=== PATIENT | female | born 1945 | race Caucasian/White ===

== ENCOUNTER 2016-08-04 16:04 | Emergency (ER) | payer OTHER ==
[~2016-08-04 16:04] MED LIST: DILT240C48 PO; VRP40 PO; WARF3TAB6 PO
[2016-08-04 16:39] VITALS: TEMP 36.6
[2016-08-04] MEDS ORDERED: SODIUM CHLORIDE 0.9% 1000ML 1,000 ML IV STA (17:02)
[2016-08-04] MEDS ORDERED: OPTIRAY 320 IV PRN (17:15)
--- NOTE | 2016-08-04 18:54 | DIAGNOSTIC IMAGING REPORT ---
CHEST CTA for PULMONARY ARTERIES CT DOSE: 391.38 mGy.cm HISTORY: Chest pain dyspnea TECHNIQUE: Multiaxial CT images of the chest were performed following the intravenous administration of contrast to evaluate the pulmonary arteries. Maximal intensity projection images were also obtained. COMPARISON STUDY: None. FINDINGS: Study is negative for pulmonary embolus. Mild bibasilar interstitial change. No well-defined parenchymal infiltrative process. Mild pulmonary vascular congestion IMPRESSION: 1. Study is negative for pulmonary embolus. 2. Mild pulmonary vascular congestion. 3. Mild cardia megaly. Electronically signed by: Junior Shah M.D. 08/04/2016 6:52 PM Dictated Date/Time: 08/04/2016 6:48 PM
--- NOTE | 2016-08-04 19:05 | EMERGENCY ROOM VISIT NOTE ---
History Report prepared by Yandy: Fidencio Nunez Under the Supervision of: Dr. Micah Tiwari D.O. First contact with patient: 16:55 Chief Complaint: SHORTNESS OF BREATH Stated Complaint: SOB, COUGH, HAS CANCER, DOING CHEMO Nursing Triage Summary: pt ot the ED with SOB and JACKSON for a few days and cough daughter can translate hx pancreatic ca History of Present Illness The patient is a 71 year old female who presents to the Emergency Room with complaints of persistent shortness of breath beginning two weeks prior to arrival. Due to a language barrier, the history was obtained from the patient's daughter. As per daughter, the patient associates a cough, fatigue, and decreased appetitie with today's symptoms. She notes the shortness of breath worsens with exertion, and the patient has experienced the cough for two weeks, and the fatigue and decreased appetite occurred over the past few days. The daughter states the patient has a pancreatic tumor and has been in chemotherapy for two months. She notes the patient did not have chemotherapy last week, and visited her doctor today. The patient's oncologist maryam blood work and referred the patient to the ED for a CT of her chest. The daughter states the patients blood thinner was recently changed from Warfarin to Eliquis. She notes the patient's last CT was in May at [place]. The daughter denies the patient experiencing a fever. It is noted the blood work drawn earlier today revealed a WBC of 18,000 and a hemoglobin of 11.7. 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 Review of Systems See HPI for pertinent positives & negatives. A total of 10 systems reviewed and were otherwise negative. Past Medical & Surgical Medical Problems: (1) Atrial fibrillation (2) HTN (hypertension) (3) Pancreatic cancer Family History Patient reports no known family medical history. Social History Smoking Status: Never Smoker Alcohol Use: none Housing Status: lives with family Current/Historical Medications Scheduled Apixaban (Eliquis), 5 MG PO BID Digoxin (Digox), 125 MCG PO DAILY Diltiazem Hcl Ext Rel (Tiazac), 120 MG PO DAILY Oxycodone Hcl (Oxycontin), 0 PO Q12 Propafenone Hcl (Propafenone Hcl Er), 425 MG PO Q12 [Rytmonorm], 150 MG PO AMPM [Stugeron], 25 MG PO AMPM Allergies Coded Allergies: No Known Allergies (Unverified , 06/12/16) Physical Exam Vital Signs Date Time Temp Pulse Resp B/P Pulse Ox O2 Delivery O2 Flow Rate FiO2 08/04/16 19:19 101 22 136/78 93 08/04/16 19:07 101 22 136/78 93 Room Air 08/04/16 16:39 36.6 135 28 131/67 94 Room Air Physical Exam CONSTITUTIONAL/VITAL SIGNS: Reviewed / noted above. GENERAL: Non-toxic in appearance. INTEGUMENTARY: Warm, dry, and [place]. HEAD: Normocephalic. EYES: without scleral icterus or trauma. ENT/OROPHARYNX: clear and moist. LYMPHADENOPATHY/NECK: Is supple without lymphadenopathy or meningismus. RESPIRATORY: Lungs clear and equal. CARDIOVASCULAR: Tachycardic rate and irregular rhythm. GI/ABDOMEN: Soft and nontender. No organomegaly or pulsatile mass. No rebound or guarding. Normal bowel sounds. EXTREMITIES: Warm and well perfused. BACK: No CVA tenderness. NEUROLOGICAL: Intact without focal deficits. PSYCHIATRIC: normal affect. MUSCULOSKELETAL: Normally developed with good muscle tone. Medical Decision & Procedures ER Provider Diagnostic Interpretation: CT results as stated below per my review and radiologist interpretation: CHEST CTA for PULMONARY ARTERIES CT DOSE: 391.38 mGy.cm HISTORY: Chest pain dyspnea TECHNIQUE: Multiaxial CT images of the chest were performed following the intravenous administration of contrast to evaluate the pulmonary arteries. Maximal intensity projection images were also obtained. COMPARISON STUDY: None. FINDINGS: Study is negative for pulmonary embolus. Mild bibasilar interstitial change. No well-defined parenchymal infiltrative process. Mild pulmonary vascular congestion IMPRESSION: 1. Study is negative for pulmonary embolus. 2. Mild pulmonary vascular congestion. 3. Mild cardia megaly. Electronically signed by: Junior Shah M.D. 08/04/2016 6:52 PM Laboratory Results Test 08/04/16 17:30 Troponin I < 0.015 ng/ml (0-0.045) Laboratory results as stated above per my review. Medications Administered Medications (Trade) Dose Ordered Sig/Jojo Route Start Time Stop Time Status Last Admin Dose Admin Sodium Chloride (Nss 1000ml) 1,000 ml @ 999 mls/hr Q1H1M STAT IV 08/04/16 17:02 08/04/16 18:02 DC 08/04/16 17:02 999 MLS/HR Heparin Sodium (Porcine) (Heparin 10 Unit/ ml 5 ml Flush) 5 ml STK-MED ONCE .ROUTE 08/04/16 19:04 08/04/16 19:06 DC 08/04/16 19:04 5 ML ECG Indication: SOB/dyspnea Rate (beats per minute): 103 Rhythm: atrial flutter Findings: no ectopy, other (no acute injury) ED Course 164: Previous medical records were reviewed. The patient was evaluated in room A5. A complete history and physical examination was performed. 1701: Ordered Sodium Chloride 1,000 ml @ 999 mls/hr IV. 1905: On reevaluation, the patient is doing well. I discussed the results and findings with the patient. She verbalized agreement of the treatment plan. The patient was discharged home. Medical Decision The differential was considered includes acute myocardial infarction, acute coronary syndrome, myocarditis, pericarditis, pericardial effusions /tamponad, esophageal perforation, pulmonary embolism, pneumonia, pneumothorax, cardiomyopathy, congestive heart, anemia , COPD/asthma exacerbation. This is a 71-year-old female who presents to the ED with a chief complaint of needing a CT scan of the chest. The patient has while place and blood work earlier today by her oncologist. The patient has a history of pancreatic cancer. She has had shortness of breath and cough in the past 10 days. She has a history of A. fib as well. The patient had some blood work as an outpatient that is noted above. White blood cell count was elevated. She was ordered a CT scan of the chest but this was not approved by chart and the patient was told to come here to have this done. The patient's heart rate was 135 and respiratory rate was 28 in triage. She is in no acute distress. She appears to be breathing comfortably. Her exam was otherwise unremarkable. Lungs appear to be also clear. EKG shows atrial flutter at a rate of 103 without acute injury or ectopy. Troponin was negative. CT SCAN of the chest did not show PE or other acute abnormality. The patient was told the results per cheese felt to be stable for discharge. Impression Primary Impression: Cough Additional Impression: Dyspnea Scribe Attestation The scribe's documentation has been prepared under my direction and personally reviewed by me in its entirety. I confirm that the note above accurately reflects all work, treatment, procedures, and medical decision making performed by me. Departure Information Dispostion Home / Self-Care Referrals Jarred Cardona D.O. (PCP) Forms HOME CARE DOCUMENTATION FORM, IMPORTANT VISIT INFORMATION Patient Instructions My [facility] Additional Instructions Your CAT scan did not show evidence of blood clot or pneumonia. Follow-up with your doctors for recheck. Return for significant worsening or new concerns. Problem Qualifiers
[2016-08-04 19:19] VITALS: BP 136/78; PULSE 101; O2SAT 93
[2016-08-18] MEDS ORDERED: [UNRECOGNIZED DRUG - OTHER] PO (07:51)
[2016-08-18] MEDS ORDERED: [UNRECOGNIZED DRUG - OTHER] PO (08:07)
[2016-08-18] MEDS ORDERED: OXYC15TA89 PO (08:09)
[2016-11-12] MEDS ORDERED: PROC1TAB5 PO (10:43)
[2016-11-12] MEDS ORDERED: PRED20TA PO (12:36)
[2016-11-13] MEDS ORDERED: ONDA8TAB6 PO (10:52)
[2016-11-13] MEDS ORDERED: OXYC1TAB3 PO (10:52)
[2016-12-15] MEDS ORDERED: XLD/500 PO (08:11)
[2017-01-05] MEDS ORDERED: PRLSR20 PO (17:10)
== END 2016-08-04 19:20 | disposition home or self-care (01) ==
LOC: C.EDB 16:05 → C.EDC 19:20
DX: R05 Cough (principal); R06.00 Dyspnea, unspecified; D72.829 Elevated white blood cell count, unspecified; C25.9 Malignant neoplasm of pancreas, unspecified; I48.91 Unspecified atrial fibrillation; I11.9 Hypertensive heart disease without heart failure; Z79.899 Other long term (current) drug therapy; Z79.01 Long term (current) use of anticoagulants; Z79.891 Long term (current) use of opiate analgesic

== ENCOUNTER 2016-08-18 16:49 | Emergency (ER) | payer OTHER ==
[~2016-08-18 16:49] MED LIST changes: -DILT240C48 PO; +OXYC15TA89 PO; -VRP40 PO; -WARF3TAB6 PO; +[UNRECOGNIZED DRUG - OTHER] PO; +[UNRECOGNIZED DRUG - OTHER] PO
[2016-08-18 16:55] VITALS: TEMP 37.1
[2016-08-18] MEDS ORDERED: APIX1TAB3 PO (18:38)
[2016-08-18] MEDS ORDERED: PROP1CAP PO (18:38)
[2016-08-18] MEDS ORDERED: DIGO0.1219 PO (18:38)
[2016-08-18] MEDS ORDERED: DILT120C68 PO (18:38)
--- NOTE | 2016-08-18 19:17 | DIAGNOSTIC IMAGING REPORT ---
HEAD CT NONCONTRAST CT DOSE: HISTORY: Fall. Head injury. TECHNIQUE: Multiaxial CT images of the head were performed without the use of intravenous contrast. Automated exposure control was utilized for this study. Comparison: None. Findings: The paranasal sinuses and mastoid air cells are clear. The calvarium and skull base are intact. The ventricles and sulci are within normal limits. There is no mass, hematoma, midline shift, or acute infarct. Impression: No acute intracranial abnormality. Electronically signed by: Yony Ortega M.D. 08/18/2016 7:16 PM Dictated Date/Time: 08/18/2016 7:13 PM
--- NOTE | 2016-08-18 19:23 | DIAGNOSTIC IMAGING REPORT ---
CERVICAL SPINE CT CT DOSE: 928.90 mGy.cm HISTORY: fall hit head TECHNIQUE: Multiaxial CT images of the cervical spine were performed and reformatted in the sagittal and coronal plane without the use of contrast. COMPARISON: None. FINDINGS: No fractures. No subluxation. Prevertebral soft tissues and the C1-C2 interval are intact. No pneumothorax. Left-sided pacemaker. Right sided Port-A-Cath. IMPRESSION: No fractures within the cervical spine. Electronically signed by: Yony Ortega M.D. 08/18/2016 7:21 PM Dictated Date/Time: 08/18/2016 7:18 PM
--- NOTE | 2016-08-18 19:26 | DIAGNOSTIC IMAGING REPORT ---
MAXILLOFACIAL CT CT DOSE: HISTORY: facial pain s/p fall TECHNIQUE: Multiaxial CT images of the maxillofacial region were performed and reformatted in the coronal plane without the use of contrast. COMPARISON: None. FINDINGS: The visualized cervical spine, skull base, pterygoid plates, lamina papyracea, orbital floors, mandible, and zygomatic arches are intact. The orbits are unremarkable. Nasal soft tissue swelling. Slightly depressed nasal bone fractures which are age indeterminate. IMPRESSION: Nasal soft tissue swelling. There are slightly depressed nasal bone fractures which are age indeterminate. Electronically signed by: Yony Ortega M.D. 08/18/2016 7:25 PM Dictated Date/Time: 08/18/2016 7:21 PM
[2016-08-18] MEDS ORDERED: DIPHTHERIA/TETANUS/PERTUSSIS 0.5 ML SYR/VIAL IM. ONE (19:30)
--- NOTE | 2016-08-18 20:03 | EMERGENCY ROOM VISIT NOTE ---
History Report prepared by Yandy: Matias Tan Under the Supervision of: Dr. Giovani Leslie D.O. First contact with patient: 18:33 Chief Complaint: FALL Stated Complaint: FELL ON FACE History of Present Illness The patient is a 71 year old female who presents to the Emergency Room following a falling episode that occurred shortly prior to arrival. This HPI was obtained per the patient's daughter as the patient herself does not speak [place]. Per the patient's daughter, the patient was walking towards the front door of her house when she fell forward. She impacted her face on the floor during the fall. She has some pain in her nose, but denies any neck pain, or headaches. The patient remembers the episode completely and did not lose consciousness at any point. The patient is currently on a three month chemotherapy treatment for pancreatic cancer. She recently switched from Coumadin to ELIQUIS as a blood thinner. She denies change in vision, fevers, chest pain, shortness of breath, nausea, vomiting, diarrhea, pain with urination , and melena. 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 A total of 10 systems reviewed and were otherwise negative. Past Medical & Surgical Medical Problems: (1) Atrial fibrillation (2) HTN (hypertension) (3) Pancreatic cancer Family History Patient reports no known family medical history. Social History Smoking Status: Never Smoker Alcohol Use: none Housing Status: lives with family Current/Historical Medications Scheduled Apixaban (Eliquis), 5 MG PO BID Digoxin (Digox), 125 MCG PO DAILY Diltiazem Hcl Ext Rel (Tiazac), 120 MG PO DAILY Oxycodone Hcl (Oxycontin), 0 PO Q12 Propafenone Hcl (Propafenone Hcl Er), 425 MG PO Q12 [Rytmonorm], 150 MG PO AMPM [Stugeron], 25 MG PO AMPM Allergies Coded Allergies: No Known Allergies (Unverified , 06/12/16) Physical Exam Vital Signs Date Time Temp Pulse Resp B/P Pulse Ox O2 Delivery O2 Flow Rate FiO2 08/18/16 20:07 99 18 133/77 94 Room Air 08/18/16 18:52 84 18 140/84 95 08/18/16 16:55 37.1 111 20 141/79 97 Room Air Physical Exam GENERAL: Sitting up in bed, well appearing, well nourished, no distress, non- toxic. Patient does not speak [place]. Interpretation through daughter. HEAD: There is an abrasion to the bridge of the nose, no active bleeding. There is dried blood in the bilateral naris. Abrasion over the left upper lip, left lower lip. EYE EXAM: normal conjunctiva, PERRL and EOM's grossly intact OROPHARYNX: no exudate, no erythema, lips, buccal mucosa, and tongue normal and mucous membranes are moist EARS: TMs clear b/l NECK: supple, no nuchal rigidity, no adenopathy, non-tender CHEST: stable to compression anteriorly and posteriorly LUNGS: clear to auscultation. Normal chest wall mechanics HEART: no murmurs, S1 normal and S2 normal ABDOMEN: abdomen soft, non-tender, normo-active bowel sounds, no masses, no rebound or guarding. PELVIS: stable to compression anteriorly and posteriorly BACK: Back is symmetrical on inspection and there is no deformity, no midline tenderness, no CVA tenderness. UPPER EXTREMITIES: full active and passive range of motion of all joints without tenderness to palpation LOWER EXTREMITIES: full active and passive range of motion of all joints without tenderness to palpation NEURO EXAM: Normal sensorium, cranial nerves II-XII grossly intact, normal speech, no gross weakness of arms, no gross weakness of legs. GCS: 15. Medical Decision & Procedures ER Provider Diagnostic Interpretation: Xray results per the radiologist and my interpretation. Other results have been interpreted by the radiologist and reviewed by me. CERVICAL SPINE CT CT DOSE: 928.90 mGy.cm HISTORY: fall hit head TECHNIQUE: Multiaxial CT images of the cervical spine were performed and reformatted in the sagittal and coronal plane without the use of contrast. COMPARISON: None. FINDINGS: No fractures. No subluxation. Prevertebral soft tissues and the C1-C2 interval are intact. No pneumothorax. Left-sided pacemaker. Right sided Port-A-Cath. IMPRESSION: No fractures within the cervical spine. Electronically signed by: Yony Ortega M.D. 08/18/2016 7:21 PM Dictated Date/Time: 08/18/2016 7:[address] CT DOSE: HISTORY: Fall. Head injury. TECHNIQUE: Multiaxial CT images of the head were performed without the use of intravenous contrast. Automated exposure control was utilized for this study. Comparison: None. Findings: The paranasal sinuses and mastoid air cells are clear. The calvarium and skull base are intact. The ventricles and sulci are within normal limits. There is no mass, hematoma, midline shift, or acute infarct. Impression: No acute intracranial abnormality. Electronically signed by: Yony Ortega M.D. 08/18/2016 7:16 PM Dictated Date/Time: 08/18/2016 7:[address] DOSE: HISTORY: facial pain s/p fall TECHNIQUE: Multiaxial CT images of the maxillofacial region were performed and reformatted in the coronal plane without the use of contrast. COMPARISON: None. FINDINGS: The visualized cervical spine, skull base, pterygoid plates, lamina papyracea, orbital floors, mandible, and zygomatic arches are intact. The orbits are unremarkable. Nasal soft tissue swelling. Slightly depressed nasal bone fractures which are age indeterminate. IMPRESSION: Nasal soft tissue swelling. There are slightly depressed nasal bone fractures which are age indeterminate. Electronically signed by: Yony Ortega M.D. 08/18/2016 7:25 PM Dictated Date/Time: 08/18/2016 7:21 PM Medications Administered Medications (Trade) Dose Ordered Sig/Jojo Route Start Time Stop Time Status Last Admin Dose Admin Diphtheria/ Pertussis/Tetanus Vacc (Adacel Inj) 0.5 ml ONCE ONCE IM. 08/18/16 19:30 08/18/16 19:31 DC 08/18/16 19:28 0.5 ML ED Course ED COURSE: Vital signs were reviewed and showed Normal vitals. The patients medical record was reviewed The above diagnostic studies were performed and reviewed. ED treatments and interventions as stated above. 1837: The patient was evaluated in room C7. A complete history and physical examination was performed. 1930: Ordered Adacel 0.5 mL IM. 2004: Upon reevaluation, the patient is resting comfortably.I discussed my findings with the patient and her daughter and the understand and agree with the treatment plan. Based on the patients age, coexisting illnesses, exam and lab findings the decision to treat as an outpatient was made. The patient remained stable while under my care. The patient appeared well at the time of discharge. Medical Decision Differential diagnoses include major intracranial, cervical, spinal, thoracic, abdominal, pelvic and neurologic injury. Fracture, contusion, sprain, strain, laceration, abrasions included as well. Patient is a 71-year-old female who presents the ER following receiving chemotherapy and walking out. She tripped and fell. She hit her face. She has no other complaints. She has abrasions on her face. CT of her head, neck and face were negative. Tetanus was updated. Patient no other complaints. She declined any pain medications. On reevaluation she is resting comfortably and she is discharged follow-up with her primary care doctor. Discussed with Pt concerning signs and symptoms to watch out for. Pt was instructed to follow up with their PCP and discussed with the patient their option to return to the ED at anytime for persistent or worsening symptoms. The appropriate anticipatory guidance and out-patient management, including indications for return to the emergency department, were explained at length to the patient and understood. Impression Primary Impression: Contusion of multiple sites Additional Impression: Fall Scribe Attestation The scribe's documentation has been prepared under my direction and personally reviewed by me in its entirety. I confirm that the note above accurately reflects all work, treatment, procedures, and medical decision making performed by me. Departure Information Dispostion Home / Self-Care Referrals No Doctor, Assigned (PCP) Forms HOME CARE DOCUMENTATION FORM, IMPORTANT VISIT INFORMATION Patient Instructions My [facility] Additional Instructions Please follow up with your primary care doctor with in the next 24 hours. Any worsening of your symptoms, please return to the ED immediately. This includes any confusion, headache, new pain, difficulty walking, or any other concerning signs or symptoms from your standpoint. PLease take Tylenol as needed for pain. Problem Qualifiers Additional Impression: Fall Encounter type: initial encounter Qualified Codes: W19.XXXA - Unspecified fall, initial encounter
[2016-08-18 20:07] VITALS: BP 133/77; PULSE 99; O2SAT 94
[2016-11-12] MEDS ORDERED: PROC1TAB5 PO (10:43)
[2016-11-12] MEDS ORDERED: PRED20TA PO (12:36)
[2016-11-13] MEDS ORDERED: OXYC1TAB3 PO (10:52)
[2016-11-13] MEDS ORDERED: ONDA8TAB6 PO (10:52)
[2016-12-15] MEDS ORDERED: XLD/500 PO (08:11)
[2017-01-05] MEDS ORDERED: PRLSR20 PO (17:10)
== END 2016-08-18 20:15 | disposition home or self-care (01) ==
LOC: C.EDB 16:51 → C.EDC 20:15
DX: S00.31XA Abrasion of nose, initial encounter (principal); S00.511A Abrasion of lip, initial encounter; W18.09XA Striking against other object with subsequent fall, initial encounter; C25.9 Malignant neoplasm of pancreas, unspecified; Z79.01 Long term (current) use of anticoagulants; I48.91 Unspecified atrial fibrillation; I10 Essential (primary) hypertension; Z79.899 Other long term (current) drug therapy; Z23 Encounter for immunization

== ENCOUNTER → 2016-09-03 | Outpatient (CLI) | payer OTHER ==
[~2016-09-03] MED LIST changes: +APIX1TAB3 PO; +DIGO0.1219 PO; +DILT120C68 PO; +ONDA8TAB6 PO; +OPTIRAY 320 IV PRN; +OXYC1TAB3 PO; +PRED20TA PO; +PRLSR20 PO; +PROC1TAB5 PO; +PROP1CAP PO; +XLD/500 PO
--- NOTE | 2016-09-03 15:42 | DIAGNOSTIC IMAGING REPORT ---
CT SCAN OF THE CHEST WITH IV CONTRAST CLINICAL HISTORY: Pancreatic cancer. COMPARISON STUDY: Chest CT dated 08/04/16. TECHNIQUE: Following the IV administration of 92 cc of Optiray 320, CT scan of the thorax was performed from the thoracic inlet to the upper abdomen. Images are reviewed in the axial, sagittal, and coronal planes. IV contrast was administered without complication. FINDINGS: Thyroid: Imaged portions of the thyroid gland are normal in size and attenuation. Thoracic aorta: There is mild atherosclerotic calcification of the thoracic aorta, which is normal in caliber and demonstrates standard 3-vessel arch anatomy. No dissection is seen. A right subclavian central venous infusion port is in place. Pulmonary vasculature: The main pulmonary arteries are mildly dilated suggesting pulmonary artery hypertension. There are no filling defects identified in the central pulmonary vessels to indicate pulmonary embolus. Note that this examination was not protocoled for evaluation of the pulmonary arteries. Heart: A cardiac pacemaker is present in the left chest wall. Leads terminate in the right atrial appendage and the right ventricle. The heart is enlarged and without pericardial effusion. The coronary arteries are densely calcified. Lungs and pleural spaces: There is no airspace consolidation or pleural effusion. Bibasilar atelectasis is observed. The trachea and central airways are clear. Mediastinum: There is no mediastinal lymphadenopathy. [place]: Clear. Axillae: There is no axillary lymphadenopathy. Upper abdomen: Hepatic steatosis is observed. A common bile duct stent is in place. Minimal pneumobilia is identified. There is a tiny hiatal hernia. A 1.8 cm cyst is seen in the upper pole of the left kidney. Skeletal structures: The skeletal structures are osteopenic. Mild degenerative change is noted throughout the thoracic spine. No lytic or blastic bony lesions are seen. IMPRESSION: 1. There is no evidence of intrathoracic metastatic disease. 2. No airspace consolidation or pleural effusion is identified. 3. Cardiomegaly and cardiac pacemaker. 4. Hepatic steatosis. 5. Additional findings as above. Electronically signed by: Lg Hankins M.D. 09/03/2016 3:41 PM Dictated Date/Time: 09/03/2016 3:32 PM
--- NOTE | 2016-09-03 15:45 | DIAGNOSTIC IMAGING REPORT ---
ABDOMEN AND PELVIS CT EXAMINATION PRE AND POST INTRAVENOUS CONTRAST CT DOSE: 1651.51 mGy.cm HISTORY: Pancreatic carcinoma PANCREATIC CANCER IV CONTRAST ONLY TECHNIQUE: Multiaxial CT images of the abdomen and pelvis were performed pre and post intravenous contrast enhancement. COMPARISON STUDY: 04/21/2016 FINDINGS: Study is performed to multi phase fashion. Lung bases remain clear. Liver is slightly heterogeneous and mildly enlarged. It well-defined findings of a space-occupying lesion, however is not seen. A biliary ductal stent is in position. There is soft tissue fullness in the region of the pancreatic head region primarily anterior to the stent. It has maximum anterior to posterior dimension of 2.7 cm and a maximum transverse dimension of 2.8 cm. This is considerably diminished compared to the prior measurements of 4.1 x 3.8 cm. There is no significant surrounding adenopathy. There is no dilatation of the pancreatic duct. Kidneys enhance uniformly. There is no significant perinephric adenopathy. Bowel pattern within the abdomen and pelvis is nonobstructive. Examination of the pelvis shows a fibroid-type uterus. Bladder is midline. There is no significant pelvic or inguinal adenopathy. The osseous structures show moderate generalized degenerative change. No lytic or blastic process is seen. IMPRESSION: 1. Considerable decrease in size of a pancreatic head mass. 2. Maximum dimension currently is 2.8 cm diminished on the prior dimension of 4.1 cm. 3. Common bile duct stent in general good position. 4. Fibroid-type uterus. 5. Otherwise negative study Electronically signed by: Junior Shah M.D. 09/03/2016 3:44 PM Dictated Date/Time: 09/03/2016 3:39 PM
== END | disposition home or self-care (01) ==
LOC: C.CTS 14:35
PROVIDERS: ATTEND Surgery
DX: C25.9 Malignant neoplasm of pancreas, unspecified (principal); I51.7 Cardiomegaly; Z95.0 Presence of cardiac pacemaker; K76.0 Fatty (change of) liver, not elsewhere classified

== ENCOUNTER → 2016-11-27 | Day surgery (SDC) | payer OTHER ==
[2016-11-25 10:38] VITALS: BMI 36.0
[~2016-11-27] VITALS: Ht 154.9 cm; Wt 86.4 kg
[~2016-11-27] MED LIST changes: +ATROPINE SULFATE 0.1 MG/ML 5ML SYR IV PRN; +CIPROFLOXACIN / D5W 400 MG IV SCH; +DEXAMETHASONE SOD INJ 4 MG/ML VIAL ONE; +DILT120C43 PO; +ESMOLOL HCL 10 MG/ML 10 ML VIAL ONE; +EpHEDrine SULFATE INJ 50 MG/ML AMP IV PRN; +FENTANYL CITRATE INJ 50 MCG/1 ML 2 ML VIAL ONE; +LACTATED RINGER'S 1000ML 1,000 ML IV SCH; +LARYING-O-JET KIT (LTA) ONE; +LIDOCAINE HCL 2% 2 ML VIAL (20MG/ML) ONE; +LNX125 PO; +LVMI SQ; +METO50TA16 PO; +METO5TAB2 PO; +MIDAZOLAM HCL 1 MG/ML 2ML VIAL ONE; +MRN5 PO; +NURSING VERBAL MED ORDER STA; +ONDANSETRON INJ 2 MG/ML 2 ML VIAL ONE; -OPTIRAY 320 IV PRN; -OXYC15TA89 PO; +PANT40TA PO; +PROPOFOL IV EMULSION 10 MG/ML 20 ML VIAL IV ONE; +SULF800T23 PO; -[UNRECOGNIZED DRUG - OTHER] PO; -[UNRECOGNIZED DRUG - OTHER] PO
[2016-11-27 06:42] VITALS: BP 136/86; PULSE 111; TEMP 36.6; O2SAT 96; Ht 154.9 cm; Wt 86.4 kg
[2016-11-27 07:13] LABS: HEMATOCRIT 38.5 % (37-47); MEAN CELL VOLUME 94.4 fL (80-100); MEAN CORPUSCULAR HEMOGLOBIN 31.1 pg (25-34); MEAN PLATELET VOLUME 9.6 fL (7.4-10.4); PLATELET COUNT 411 K/uL (130-400); RED BLOOD COUNT 4.08 M/uL (4.2-5.4); WHITE BLOOD COUNT 13.95 K/uL (4.8-10.8)
--- NOTE | 2016-11-27 07:54 | Endo History and Physical ---
History & Physical Date of Service: Nov 27, 2016. Chief Complaint: ERCP for stent change Referring Physician: iTno Pickering/[place] History of Present Illness panc CA with ERCP stent placed in [place] in Mar 2016 Past Medical History Pacemaker Past Surgical History Hx Cardiac Surgery: Yes (PACEMAKER 12/2103) Hx Pacemaker: Yes Hx Abdominal Surgery: No ( ) Hx Post-Op Nausea and Vomiting: No Hx Cancer Surgery: No Hx Thoracic Surgery: No Hx Orthopedic: No Hx Urinary Tract Surgery: No Social History Smoking Status: Never Smoker Hx Substance Use: No Hx Alcohol Use: No Allergies Coded Allergies: No Known Allergies (Unverified , 11/27/16) Current Medications Reported Home Medications Medications Dose Route/Sig Max Daily Dose Days Date Category Dose Instructions Roxicodone Ir (Oxycodone HCl) 5 Mg Tab 5 Mg PO Q4H PRN 11/13/16 Reported Zofran (Ondansetron HCl) 8 Mg Tab 8 Mg PO Q8 PRN 11/13/16 Reported Compazine (Prochlorperazine Maleate) 10 Mg Tab 1 Tab PO Q6 PRN 7 11/12/16 Reported Tiazac (Diltiazem HCl) 120 Mg Capcr 120 Mg PO QAM 08/04/16 Reported Propafenone Hcl Er (Propafenone Hcl) 425 Mg Cap 425 Mg PO Q12 08/04/16 Reported Eliquis (Apixaban) 5 Mg Tab 5 Mg PO BID 08/04/16 Reported FAMILY WAITING FOR INSTRUCTIONS FROM SURGEON Digox (Digoxin) 125 Mcg Tab 125 Mcg PO QAM 08/04/16 Reported Vital Signs Weight (Kilograms): 86.36 Height (Feet): 5 Height (Inches): 1 Date Time Temp Pulse Resp B/P (MAP) Pulse Ox O2 Delivery O2 Flow Rate FiO2 11/27/16 06:42 36.6 111 20 136/86 (103) 96 Room Air Physical Exam AAOx3 Nls1s2 \Lungs CTA Abd soft NT/ND - CCE 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
--- NOTE | 2016-11-27 09:08 | DIAGNOSTIC IMAGING REPORT ---
ERCP BILIARY DUCTAL CLINICAL HISTORY: Stent placement COMPARISON STUDY: CT scan dated 09/03/2016 FLUOROSCOPY TIME: 219 seconds. 5 intraprocedural fluoroscopic spot images were acquired.. FINDINGS: Image 1 demonstrates a biliary enteric stent. The common bile duct was cannulated. There is dilatation of the common bile duct and left ductal system. A balloon catheter was placed within the duct. The final image demonstrates expandable metallic biliary enteric stent. IMPRESSION: Images during an ERCP and placement of a metallic biliary enteric stent. Electronically signed by: Carlos A Ewing M.D. 11/27/2016 9:07 AM Dictated Date/Time: 11/27/2016 9:06 AM
--- NOTE | 2016-11-27 09:25 | GI REPORT ---
Procedure Date: 11/27/2016 8:03 AM Procedure: ERCP Indications: Malignant tumor of the head of pancreas, Stent change Medicines: General Anesthesia Complications: No immediate complications. Estimated blood loss: None Estimated Blood Loss: Estimated blood loss: none. Procedure: Pre-Anesthesia Assessment: - Prior to the procedure, a History and Physical was performed, and patient medications and allergies were reviewed. The patient's tolerance of previous anesthesia was also reviewed. The risks and benefits of the procedure and the sedation options and risks were discussed with the patient. All questions were answered, and informed consent was obtained. Prior Anticoagulants: The patient has taken no previous anticoagulant or antiplatelet agents. ASA Grade Assessment: IV - A patient with severe systemic disease that is a constant threat to life. After reviewing the risks and benefits, the patient was deemed in satisfactory condition to undergo the procedure. After obtaining informed consent, the scope was passed under direct vision. Throughout the procedure, the patient's blood pressure, pulse, and oxygen saturations were monitored continuously. The scope was introduced through the mouth, and advanced to the duodenum and used to cannulate the bile duct. The ERCP was accomplished without difficulty. The patient tolerated the procedure well. Findings: A biliary stent was visible on the statistical consultant film. The esophagus was successfully intubated under direct vision. The scope was advanced to a normal major papilla in the descending duodenum without detailed examination of the pharynx, larynx and associated structures, and upper GI tract. The upper GI tract was grossly normal. One stent was removed from the biliary tree using a snare. A straight 0.035 inch Tracer [employer] Direct wire was passed into the biliary tree. The biliary sphincterotomy was extended to a total of 3 mm in length with a short-tip traction sphincterotome using ERBE electrocautery. There was no post-sphincterotomy bleeding. To discover objects, the biliary tree was swept with an 8.5 mm balloon and 12 mm balloon starting at the bifurcation. Sludge was swept from the duct. Superficial cannulation of and contrast injection into the bile duct was accomplished with the 8.5 mm balloon. I personally interpreted the bile duct images. Ductal flow of contrast was adequate. Image quality was adequate. Contrast extended to the entire biliary tree. The common bile duct, hepatic duct bifurcation and left main hepatic duct were severely dilated and diffusely dilated. The largest diameter was 15 mm. One 10 mm by 6 cm covered metal biliary stent with no external flaps and no internal flaps was placed 6 cm into the common bile duct. Bile and sludge flowed through the stent. The stent was in good position. There was prompt drainage of contrast from the biliary system after deployment of metal stent. The PD was neither instrumented nor opacified. No samples taken. The removed stent was inspected as is intact. Impression: - One stent was removed from the biliary tree. - A sphincterotomy was performed. - The biliary tree was swept and sludge was found. - The left main hepatic duct and common bile duct were severely dilated. - One covered metal biliary stent was placed into the common bile duct. Recommendation: - Discharge patient to home (ambulatory). - Advance diet as tolerated. - Cipro (ciprofloxacin) 500 mg PO BID for 5 days. - Return to this GI lab for stent exchange at ERCP in 4 months. - Check liver enzymes (AST, ALT, alkaline phosphatase, bilirubin) in 2 weeks. MD Robe Topete MD 11/27/2016 9:24:59 AM This report has been signed electronically. Note Initiated On: 11/27/2016 8:03 AM I attest to the content of the Intraoperative Record and orders documented therein, exceptions below
--- NOTE | 2016-11-27 09:39 | Discharge Instructions ---
Endoscopy Patient Instructions Date / Procedure(s) Performed Nov 27, 2016. ERCP Allergy Information Coded Allergies: No Known Allergies (Unverified , 11/27/16) Discharge Date / Findings Nov 27, 2016. distal CBD stricture; stent removal, sludge extraction and sphincterotomy 10x60 fully covered stent with prompt drainage Medication Instructions Restart Stopped Medication(s): Meds Administered (Past 24Hrs) Medications (Trade) Dose Ordered Sig/Jojo Route Start Time Stop Time Status Last Admin Dose Admin Lactated Ringer's 1,000 ml @ 15 mls/hr Q24H IV 11/27/16 06:00 11/28/16 05:59 11/27/16 06:45 15 MLS/HR Reported Home Medications Medications Dose Route/Sig Max Daily Dose Days Date Category Dose Instructions Roxicodone Ir (Oxycodone HCl) 5 Mg Tab 5 Mg PO Q4H PRN 11/13/16 Reported Zofran (Ondansetron HCl) 8 Mg Tab 8 Mg PO Q8 PRN 11/13/16 Reported Compazine (Prochlorperazine Maleate) 10 Mg Tab 1 Tab PO Q6 PRN 7 11/12/16 Reported Tiazac (Diltiazem HCl) 120 Mg Capcr 120 Mg PO QAM 08/04/16 Reported Propafenone Hcl Er (Propafenone Hcl) 425 Mg Cap 425 Mg PO Q12 08/04/16 Reported Eliquis (Apixaban) 5 Mg Tab 5 Mg PO BID 08/04/16 Reported FAMILY WAITING FOR INSTRUCTIONS FROM SURGEON Digox (Digoxin) 125 Mcg Tab 125 Mcg PO QAM 08/04/16 Reported 10 resume Eloquis on Wednesday Cipro 500mg BID x [address] Boyle will need stent exchange in 4 months Provider Instructions Activity Restrictions - No exercising or heavy lifting for 24 hours. - Do not drink alcohol the day of the procedure. - Do not drive a car or operate machinery until the day after the procedure. - Do not make any important decisions or sign important papers in 24 hours after the procedure. Following Day: - Return to full activity which may include returning to work/school. Diet Start your diet with liquids and light foods (jello, soup, juice, toast). Then eat your usual diet if not nauseated. Treatment For Common After Affects For mild abdominal pain, bloating, or excessive gas: - Rest - Eat lightly - Lie on right side Follow-Up Information Follow-up with as scheduled Anesthesia Information What You Should Know You have had a procedure that required some medicine to reduce anxiety and discomfort. This treatment is called moderate sedation. After receiving the treatment, you may be sleepy, but you will be able to breathe on your own. The effects of the treatment may last for several hours. Follow these instructions along with Activity/Diet recommendations noted above: * Do NOT do anything where dizziness or clumsiness would be dangerous. * Rest quietly at home today, then you can be up and about tomorrow. * Have a responsible person stay with you the rest of today. * You may have had an I.V. today. If so, you may take the dressing off later today. Recommendations Call your doctor if: * Trouble breathing * Continuous vomiting for more than 24 hours * Temperature above 101 degrees * Severe abdominal pain or bloating * Pain not relieved by pain medicine ordered * There is increased drainage or redness from any incision * A large amount of rectal bleeding greater than 2-3 tablespoons. (If you had a polyp/s removed or have hemorrhoids, a small amount of blood - from the rectum is to be expected.) * You have any unanswered questions or concerns. IN THE EVENT OF A SERIOUS EMERGENCY, GO TO THE NEAREST EMERGENCY ROOM Your discharge instructions were prepared by provider Robe Sears. Patient Instructions Signature Page Elisa Hemphill Patient (or Guardian) Signature/Date: I have read and understand the instructions given to me by my caregivers. Caregiver/RN/Doctor Signature/Date: The above-named patient and/or guardian has received patient instructions on this date. + Original Patient Signature Page (only) stays with chart. Please make copy for patient.
--- NOTE | 2016-11-27 09:52 | Anesthesiology Progress Note ---
Anesthesia Post Op Note Date & Time Nov 27, 2016 at 09:51 Vital Signs Pain Intensity: 0 Vital Signs Past 12 Hours Date Time Temp Pulse Resp B/P (MAP) Pulse Ox O2 Delivery O2 Flow Rate FiO2 11/27/16 09:40 37.1 86 19 128/63 94 Room Air 11/27/16 09:30 82 18 123/88 100 Mask 8 11/27/16 09:20 90 23 136/88 100 Mask 8 11/27/16 09:11 36.4 97 16 130/77 100 Mask 10 11/27/16 06:42 36.6 111 20 136/86 (103) 96 Room Air Notes Mental Status: alert / awake / arousable, participated in evaluation Pt Amnestic to Procedure: Yes Nausea / Vomiting: adequately controlled Pain: adequately controlled Airway Patency, RR, SpO2: stable & adequate BP & HR: stable & adequate Hydration State: stable & adequate Anesthetic Complications: no major complications apparent
[2016-11-27 09:58] VITALS: BP 142/72; PULSE 91; TEMP 36.8; O2SAT 93
[2016-11-27 10:30] VITALS: BP 139/63; PULSE 100; O2SAT 93
[2016-11-27 11:00] VITALS: BP 132/74; PULSE 96; TEMP 36.7; O2SAT 94
== END | disposition home or self-care (01) ==
LOC: C.ACU 06:13
PROVIDERS: ATTEND Internal Medicine Gastroenterology
DX: C25.0 Malignant neoplasm of head of pancreas (principal); K83.8 Other specified diseases of biliary tract; Z95.0 Presence of cardiac pacemaker; Z79.899 Other long term (current) drug therapy

== ENCOUNTER → 2017-05-03 | Outpatient (CLI) | payer OTHER ==
[~2017-05-03] MED LIST changes: -ATROPINE SULFATE 0.1 MG/ML 5ML SYR IV PRN; -CIPROFLOXACIN / D5W 400 MG IV SCH; -DEXAMETHASONE SOD INJ 4 MG/ML VIAL ONE; -ESMOLOL HCL 10 MG/ML 10 ML VIAL ONE; -EpHEDrine SULFATE INJ 50 MG/ML AMP IV PRN; -FENTANYL CITRATE INJ 50 MCG/1 ML 2 ML VIAL ONE; -LACTATED RINGER'S 1000ML 1,000 ML IV SCH; -LARYING-O-JET KIT (LTA) ONE; -LIDOCAINE HCL 2% 2 ML VIAL (20MG/ML) ONE; -MIDAZOLAM HCL 1 MG/ML 2ML VIAL ONE; -NURSING VERBAL MED ORDER STA; -ONDANSETRON INJ 2 MG/ML 2 ML VIAL ONE; -PRED20TA PO; -PROPOFOL IV EMULSION 10 MG/ML 20 ML VIAL IV ONE
[2017-05-03 19:06] LABS: BASO % 0.3 %; BASO ABS # 0.03 K/uL (0-0.2); COMPLETE YES; EOS % 1.9 %; HEMATOCRIT 29.9 % (37-47); IG% 0.6 %; LYMPH % 15.2 %; LYMPH ABS # 1.49 K/uL (1.2-3.4); MEAN CELL VOLUME 87.2 fL (80-100); MEAN CORPUSCULAR HEMOGLOBIN 27.1 pg (25-34); MEAN CORPUSCULAR HGB CONC 31.1 g/dl (32-36); MEAN PLATELET VOLUME 9.7 fL (7.4-10.4); MONO % 11.2 %; NEUT % 70.8 %; PLATELET COUNT 586 K/uL (130-400); RED BLOOD COUNT 3.43 M/uL (4.2-5.4); WHITE BLOOD COUNT 9.78 K/uL (4.8-10.8)
[2017-05-03 19:31] LABS: ALT/SGPT 17 U/L (12-78); AST/SGOT 19 U/L (15-37); BLOOD UREA NITROGEN 22 mg/dl (7-18); BUN/CREATININE RATIO 41.7 (10-20); CALCIUM 8.5 mg/dl (8.5-10.1); CARBON DIOXIDE 27 mmol/L (21-32); CHLORIDE 105 mmol/L (98-107); CREATININE 0.53 mg/dl (0.60-1.20); GLUCOSE 78 mg/dl (70-99); MAGNESIUM 1.9 mg/dl (1.8-2.4); POTASSIUM 3.8 mmol/L (3.5-5.1); SODIUM 136 mmol/L (136-145)
[2017-05-03 19:36] LABS: ALKALINE PHOSPHATASE 143 U/L (45-117); PHOSPHORUS 2.9 mg/dl (2.5-4.9); PREALBUMIN 9.6 mg/dl (20-40)
== END | disposition home or self-care (01) ==
LOC: C.LABSPEC 11:55
PROVIDERS: ATTEND Surgery Surgical Oncology
DX: Z01.89 Encounter for other specified special examinations (principal)

== ENCOUNTER → 2017-05-13 | Outpatient (CLI) | payer OTHER ==
[2017-05-13 14:36] LABS: HEMATOCRIT 30.3 % (37-47); MEAN CELL VOLUME 85.8 fL (80-100); MEAN CORPUSCULAR HEMOGLOBIN 26.3 pg (25-34); MEAN CORPUSCULAR HGB CONC 30.7 g/dl (32-36); MEAN PLATELET VOLUME 10.1 fL (7.4-10.4); PLATELET COUNT 576 K/uL (130-400); RED BLOOD COUNT 3.53 M/uL (4.2-5.4); WHITE BLOOD COUNT 8.14 K/uL (4.8-10.8)
[2017-05-13 14:57] LABS: ALT/SGPT 19 U/L (12-78); BLOOD UREA NITROGEN 26 mg/dl (7-18); BUN/CREATININE RATIO 46.9 (10-20); CALCIUM 8.2 mg/dl (8.5-10.1); CARBON DIOXIDE 25 mmol/L (21-32); CHLORIDE 102 mmol/L (98-107); CREATININE 0.56 mg/dl (0.60-1.20); GLUCOSE 145 mg/dl (70-99); POTASSIUM 3.9 mmol/L (3.5-5.1); SODIUM 136 mmol/L (136-145)
[2017-05-13 15:00] LABS: ALB/GLOB RATIO 0.5 (0.9-2); ALKALINE PHOSPHATASE 119 U/L (45-117); AST/SGOT 19 U/L (15-37); PHOSPHORUS 2.3 mg/dl (2.5-4.9)
== END | disposition home or self-care (01) ==
LOC: C.LABSPEC 11:44
PROVIDERS: ATTEND Surgery Surgical Oncology
DX: Z01.89 Encounter for other specified special examinations (principal)

== ENCOUNTER 2017-06-05 03:24 | Emergency (ER) | payer OTHER ==
[~2017-06-05] VITALS: Ht 154.9 cm; Wt 80.4 kg
[~2017-06-05 03:24] MED LIST changes: -DILT120C43 PO; -LNX125 PO; -LVMI SQ; -METO50TA16 PO; -METO5TAB2 PO; -MRN5 PO; -PANT40TA PO; -SULF800T23 PO
[2017-06-05 03:28] VITALS: Ht 154.9 cm; Wt 80.4 kg
[2017-06-05] MEDS ORDERED: ONDANSETRON INJ 2 MG/ML 2 ML VIAL IV STA (03:38)
[2017-06-05] MEDS ORDERED: PANTOprazole INJ 80 MG in SYRINGE 0 ML IV ONE (03:45)
--- NOTE | 2017-06-05 03:50 | EMERGENCY ROOM VISIT NOTE ---
History Report prepared by Yandy: Carmelo Sánchez Under the Supervision of: Dr. Gallito Gómez M.D. First contact with patient: 03:30 Chief Complaint: VOMITING Stated Complaint: VOMITING BLOOD History of Present Illness The patient is a 71 year old female who presents to the Emergency Room with complaints of intermittent vomiting that began at 0200. The patient is accompanied by her daughter who states that the patient was diagnosed with pancreatic cancer a year ago and has been getting chemotherapy at [facility]. She reports that the patient stopped chemotherapy and recently had Whipple surgery done by Dr. Talavera on March 23 at [place]. She reports that the patient stayed three weeks in the hospital and was vomiting most of the time. Her daughter states that she was given Eliquis and was doing well. She states that the patient was complaining of left lower back pain last night. Her daughter states that patient woke up at 0200 today and started to vomit blood. She reports that she had 3 episodes of hematemesis, including one in the ED. She denies current chemotherapy and loss of consciousness. Source of History: family Onset: 0200 Position: other (global) Quality: other (blood) Timing: intermittent Associated Symptoms: + back pain, No LOC Review of Systems See HPI for pertinent positives & negatives. A total of 10 systems reviewed and were otherwise negative. Past Medical & Surgical Medical Problems: (1) Atrial fibrillation (2) HTN (hypertension) (3) Pancreatic cancer Family History Patient reports no known family medical history. Social History Smoking Status: Never Smoker Alcohol Use: none Housing Status: lives with family Occupation Status: retired Current/Historical Medications Scheduled Apixaban (Eliquis), 5 MG PO BID Digoxin (Digoxin), 0.125 MG PO DAILY Diltiazem Hcl Coated Beads (Cartia Xt), 120 MG PO DAILY Dronabinol (Marinol), 10 MG PO DAILY Insulin Detemir (Levemir), 15 UNITS SQ QAM Metoclopramide Hcl (Metoclopramide Hcl), 5 MG PO ACHS Metoprolol Tartrate (Lopressor) (Lopressor), 50 MG PO BID Pantoprazole (Protonix), 40 MG PO DAILY Sulfa/Trimethoprim (Bactrim Ds 800MG/160MG), 1 TAB PO BID Allergies Coded Allergies: No Known Allergies (Unverified , 11/27/16) Physical Exam Vital Signs Date Time Temp Pulse Resp B/P (MAP) Pulse Ox O2 Delivery O2 Flow Rate FiO2 06/05/17 06:44 121 26 104/50 99 06/05/17 06:35 121 26 104/50 99 06/05/17 06:35 126 27 06/05/17 06:31 93/45 06/05/17 06:30 137 27 95 06/05/17 06:27 115/93 06/05/17 06:25 139 23 96 06/05/17 06:23 36.5 130 16 115/93 96 06/05/17 06:20 122 20 94 06/05/17 06:15 95 96 06/05/17 06:10 109 10 95 06/05/17 05:55 109 12 96 06/05/17 05:50 81 27 97 06/05/17 05:35 123 14 95 06/05/17 05:31 134/50 06/05/17 05:26 110/71 06/05/17 04:50 80 24 92 06/05/17 04:35 86 26 98 06/05/17 04:30 88 35 99/62 94 06/05/17 04:00 94 15 113/74 92 06/05/17 03:52 95 06/05/17 03:28 36.5 93 18 117/77 94 Room Air Physical Exam GENERAL: Patient is well appearing and in no acute distress. HEENT: No acute trauma, normocephalic atraumatic, mucous membranes moist, no nasal congestion, no scleral icterus. NECK: No stridor, no adenopathy, no meningismus, trachea is midline. LUNGS: No dyspnea. Clear to auscultation and equal bilaterally. No wheeze, no rhonchi. HEART: Irregular heartbeat. No murmurs, rubs, gallops appreciated. ABDOMEN: Soft, nontender, bowel sounds positive, no masses appreciated, no peritonitis. Small slow healing surgical wound of anterior upper abdomen. BACK: No midline tenderness, no CVA tenderness EXTREMITIES: Normal motion all extremities, no cyanosis, no edema. NEUROLOGIC: Alert and oriented, no acute motor or sensory deficits, no focal weakness, cranial nerves grossly intact. SKIN: No rash, no jaundice, no diaphoresis. Medical Decision & Procedures Laboratory Results 06/05/17 03:59 Red Blood Count 4.23, Mean Corpuscular Volume 82.7, Mean Corpuscular Hemoglobin 26.5, Mean Corpuscular Hemoglobin Concent 32.0, Mean Platelet Volume 10.0, Neutrophils (%) (Auto) 85.7, Lymphocytes (%) (Auto) 8.7, Monocytes (%) (Auto) 4.5, Eosinophils (%) (Auto) 0.6, Basophils (%) (Auto) 0.2, Neutrophils # (Auto) 14.01, Lymphocytes # (Auto) 1.43, Monocytes # (Auto) 0.74, Eosinophils # (Auto) 0.10, Basophils # (Auto) 0.03 06/05/17 03:59 Test 06/05/17 03:59 06/05/17 04:01 06/05/17 05:55 White Blood Count 16.36 K/uL (4.8-10.8) Red Blood Count 4.23 M/uL (4.2-5.4) Hemoglobin 11.2 g/dL (12.0-16.0) Hematocrit 35.0 % (37-47) Mean Corpuscular Volume 82.7 fL (80-100) Mean Corpuscular Hemoglobin 26.5 pg (25-34) Mean Corpuscular Hemoglobin Concent 32.0 g/dl (32-36) Platelet Count 531 K/uL (130-400) Mean Platelet Volume 10.0 fL (7.4-10.4) Neutrophils (%) (Auto) 85.7 % Lymphocytes (%) (Auto) 8.7 % Monocytes (%) (Auto) 4.5 % Eosinophils (%) (Auto) 0.6 % Basophils (%) (Auto) 0.2 % Neutrophils # (Auto) 14.01 K/uL (1.4-6.5) Lymphocytes # (Auto) 1.43 K/uL (1.2-3.4) Monocytes # (Auto) 0.74 K/uL (0.11-0.59) Eosinophils # (Auto) 0.10 K/uL (0-0.5) Basophils # (Auto) 0.03 K/uL (0-0.2) RDW Standard Deviation 47.9 fL (36.4-46.3) RDW Coefficient of Variation 15.9 % (11.5-14.5) Immature Granulocyte % (Auto) 0.3 % Immature Granulocyte # (Auto) 0.05 K/uL (0.00-0.02) Prothrombin Time 12.7 SECONDS (9.0-12.0) Prothromb Time International Ratio 1.2 (0.9-1.1) Activated Partial Thromboplast Time 30.3 SECONDS (21.0-31.0) Partial Thromboplastin Ratio 1.2 Est Creatinine Clear Calc Drug Dose 62.5 ml/min Estimated GFR () 88.8 Estimated GFR (Non- 76.6 BUN/Creatinine Ratio 12.8 (10-20) Calcium Level 8.6 mg/dl (8.5-10.1) Total Bilirubin 0.5 mg/dl (0.2-1) Direct Bilirubin 0.2 mg/dl (0-0.2) Aspartate Amino Transf (AST/SGOT) 82 U/L (15-37) Alanine Aminotransferase (ALT/SGPT) 36 U/L (12-78) Alkaline Phosphatase 150 U/L (45-117) Troponin I < 0.015 ng/ml (0-0.045) Total Protein 7.0 gm/dl (6.4-8.2) Albumin 2.6 gm/dl (3.4-5.0) Lipase 4841 U/L (73-393) Digoxin Level 0.8 ng/ml (0.8-2.0) Bedside Hemoglobin 11.2 g/dl (12.0-16.0) Bedside Hematocrit 33 % (37-47) Bedside Sodium 138 mEq/L (135-144) Bedside Potassium 3.6 mEq/L (3.3-5.0) Bedside Chloride 106 mEq/L (101-112) Bedside Total CO2 20 mEq/l (24-31) Anion Gap 17.0 mmol/L (16-25) Bedside Blood Urea Nitrogen 9 mg/dl (7-18) Bedside Creatinine 0.7 mg/dl (0.6-1.3) Bedside Glucose (other) 195 mg/dl (70-99) Bedside Ionized Calcium ([place]) 1.11 mmol/l (1.12-1.32) Urine Color ORANGE Urine Appearance CLOUDY (CLEAR) Urine pH 5.0 (4.5-7.5) Urine Specific Mcdavid 1.032 (1.000-1.030) Urine Protein 1+ (NEG) Urine Glucose (UA) NEG (NEG) Urine Ketones TRACE (NEG) Urine Occult Blood NEG (NEG) Urine Nitrite POS (NEG) Urine Bilirubin NEG (NEG) Urine Urobilinogen NEG (NEG) Urine Leukocyte Esterase TRACE (NEG) Urine WBC (Auto) 1-5 /hpf (0-5) Urine RBC (Auto) 10-30 /hpf (0-4) Urine Hyaline Casts (Auto) 1-5 /lpf (0-5) Urine Epithelial Cells (Auto) >30 /lpf (0-5) Urine Bacteria (Auto) NEG (NEG) Urine Crystals (NONE PRSENT) Urine Pathogenic Casts /lpf (0) Urine Mucus PRESENT (NONE PRSENT) Urine Yeast (Auto) (NONE PRSENT) Laboratory results as reviewed by me. Medications Administered Medications (Trade) Dose Ordered Sig/Jojo Route Start Time Stop Time Status Last Admin Dose Admin Ondansetron HCl (Zofran Inj) 4 mg NOW STAT IV 06/05/17 03:38 06/05/17 03:40 NH 06/05/17 03:51 4 MG Pantoprazole Sodium 80 mg/ Dextrose 120 ml @ 480 mls/hr NOW STAT IV 06/05/17 04:04 06/05/17 04:18 DC 06/05/17 04:20 480 MLS/HR Sodium Chloride 500 ml @ 999 mls/hr Q31M STAT IV 06/05/17 04:33 06/05/17 05:03 NH 06/05/17 04:50 999 MLS/HR Sodium Chloride 1,000 ml @ 999 mls/hr Q1H1M STAT IV 06/05/17 05:30 06/05/17 06:30 NH 06/05/17 05:50 999 MLS/HR Prothrombin Complex Concent (Human) 2000 unit/ Syringe 80 ml @ 10 mls/min NOW STAT IV 06/05/17 05:51 06/05/17 05:58 NH 06/05/17 06:01 10 MLS/MIN Fentanyl Citrate (Fentanyl Inj) 75 mcg NOW STAT IV 06/05/17 05:45 06/05/17 05:51 NH 06/05/17 06:06 30 MCG Prochlorperazine Edisylate (Compazine Inj) 5 mg NOW STAT IV 06/05/17 06:24 06/05/17 06:26 DC 06/05/17 06:27 5 MG ECG Indication: back/shoulder pain Rate (beats per minute): 92 Rhythm: atrial fibrillation Findings: ST depression (inferiolateral), other (QTC 437) Comparison ECG Date: 08/04/2016 Change: Mildly morphogenetically similar to older. ED Course 0334: The patient was evaluated in room A11B. A complete history and physical exam was performed. 0338: Ordered Zofran Injection 4 mg IV. 0404: Ordered Pantoprazole Sodium 80 mg/ Dextrose 120 ml @ 480 mls/hr IV. 0428: I discussed the patient's case with Dr.Amanda Ashford, [facility] On[facility]. She requested patient is transferred to their facility. She agrees with Zofran and Protonix. She requests an ng tube be placed and the patient is given 500 ml of fluid. She also would like the patient to be given continuous fluids on the way to [place]. The patient was accepted by Dr. Flores at the ER at [place]. She notes if heavy bleeding reoccurs she would advise k centra and empiric transfusion at that time. 0433: Ordered Sodium Chloride 1000 ml @ 75 mls/hr IV, Sodium Chloride 500 ml @ 999 mls/hr IV. Medical Decision Differential: Gastroenteritis, Food Borne, Esophageal Perforation, , Electrolyte Abnormality, Dehydration, Intraabdominal Infection, UTI/ Pyelonephritis, Bowel Obstruction, Biliary Pathology, amongst other pathology entertained. 71 yr old Samoan female who does not speak Urdu though daughter at bedside does. Patient with Pancreatic CA and recent Whipple at [place]. Persistent vomiting issues which this evening culminated in vomiting large about bright red blood. No history cirrhosis nor varices. Given Empiric Protonix along with Zofran which improved nausea. Initial HgB Stable for patient as is BP and HR. She is on Eliquis, though without persistent heavy bleeding, hemodynamic instability, nor anemia (at this time) will hold on trial of Kcentra. No indication for transfusion at present. Reviewed case with Surg Onc at [place] who feel she will need to be transferred to their facility given her history. Per their request more fluids given and NG Tube placed. During NG tube placement patient did vomit some more clotted blood, but NG tube with only scant blood out once placed. Still hemodynamically stable and comfortable. Labs reveal elevated Lipase, though patient without significant abdominal pain. This may be delayed elevation post surgery, though I suspect chronic pancreatitis could be her cause of persistent vomiting. Held off on CT imaging abdomen transferring to higher level of care as it is. KUB with NG tube in place, flat plate. CXR without clear evidence of infiltrate. Patient began vomiting more blood despite NGTube (roughly 750ml red somewhat clotted blood), became mildly hypotensive and increasing tachycardia. She has developed increasing pain and is clearly uncomfortable. Ordered PRBC x 2, Kcentra, further NSS bolus, another IV access, and bal. Reviewed with Dr Ashford again to make her aware. She and I now feel patient requires air transport. I reviewed consent with daughter for transfusion as patient is unable to give this consent and daughter states language line will be unable to help given their dialect. Patient with some increased vomiting just as [facility] arrived. Given Compazine IV with improvement. NG tube clearly now blocked and attempts at unclogging unsuccessful. She is protecting airway. Given persistent bleeding I feel scope is probably indicated, however as time to transfer at this point is shorter than time to GI here and she is stable I feel transferring at this time indicated rather than delaying any longer. Daughter well aware of risks. Head Trauma GCS Score: 15 Medication Reconcilliation Current Medication List: was personally reviewed by me Blood Pressure Screening Patient's blood pressure: Normal blood pressure Consults Time Called: [phone] Consulting Physician: Dr. Juana Ashford, [facility] Returned Call: I discussed the patient's case with Dr.Amanda Ashford, [facility]. She requested patient is transferred to their facility. She agrees with Zofran and Protonix. She requests an ng tube be placed and the patient is given 500 ml of fluid. She also would like the patient to be given continuous fluids on the way to [place]. The patient was accepted by Dr. Flores at the ER at [place]. She notes if heavy bleeding reoccurs she would advise k centra and empiric transfusion at that time. Impression Primary Impression: Acute upper GI bleed Additional Impressions: Hematemesis Pancreatitis Critical Care I have personally spent greater than 90 minutes of critical care time in the direct management of this patient. This was a life/limb threatening event. This includes time spent evaluating patient, direct bedside care, chart review, placing orders, interpretation of diagnostic studies, discussion with consultants, patient, and family members, as well as other required patient management activities. This 90 minutes is in excess of all separately billable procedures. Scribe Attestation The scribe's documentation has been prepared under my direction and personally reviewed by me in its entirety. I confirm that the note above accurately reflects all work, treatment, procedures, and medical decision making performed by me. Departure Information Dispostion Transfer Acute Care Facility Referrals No Doctor, Assigned (PCP) Patient Instructions My [facility] Problem Qualifiers
[2017-06-05] MEDS ORDERED: PANTOprazole INJ 80 MG in DEXTROSE 5% 100ML IV STA (04:04)
[2017-06-05 04:14] LABS: ISTAT CREATININE 0.7 mg/dl (0.6-1.3); ISTAT HEMOGLOBIN 11.2 g/dl (12.0-16.0); ISTAT IONIZED CALCIUM 1.11 mmol/l (1.12-1.32)
[2017-06-05 04:22] LABS: BASO % 0.2 %; BASO ABS # 0.03 K/uL (0-0.2); COMPLETE YES; EOS % 0.6 %; IG% 0.3 %; LYMPH % 8.7 %; LYMPH ABS # 1.43 K/uL (1.2-3.4); MEAN CELL VOLUME 82.7 fL (80-100); MEAN CORPUSCULAR HEMOGLOBIN 26.5 pg (25-34); MONO % 4.5 %; NEUT % 85.7 %; PLATELET COUNT 531 K/uL (130-400); RED BLOOD COUNT 4.23 M/uL (4.2-5.4); WHITE BLOOD COUNT 16.36 K/uL (4.8-10.8)
[2017-06-05] MEDS ORDERED: SODIUM CHLORIDE 0.9% 500ML 500 ML IV STA (04:33)
[2017-06-05] MEDS ORDERED: SODIUM CHLORIDE 0.9% 1000ML 1,000 ML IV STA ×2 (04:33→05:30)
[2017-06-05 04:38] LABS: INR 1.2 (0.9-1.1); PARTIAL THROMBOPLASTIN RATIO 1.2; PROTHROMBIN TIME (PATIENT) 12.7 SECONDS (9.0-12.0)
[2017-06-05] MEDS ORDERED: SULF800T23 PO (04:41)
[2017-06-05] MEDS ORDERED: METO50TA16 PO (04:43)
[2017-06-05] MEDS ORDERED: DILT120C43 PO (04:44)
[2017-06-05] MEDS ORDERED: PANT40TA PO (04:45)
[2017-06-05] MEDS ORDERED: LNX125 PO (04:46)
[2017-06-05] MEDS ORDERED: METO5TAB2 PO (04:48)
[2017-06-05] MEDS ORDERED: MRN5 PO (04:49)
[2017-06-05] MEDS ORDERED: LVMI SQ (04:50)
[2017-06-05 04:51] LABS: ALT/SGPT 36 U/L (12-78); AST/SGOT 82 U/L (15-37); BLOOD UREA NITROGEN 10 mg/dl (7-18); BUN/CREATININE RATIO 12.8 (10-20); CALCIUM 8.6 mg/dl (8.5-10.1); CARBON DIOXIDE 21 mmol/L (21-32); CHLORIDE 106 mmol/L (98-107); CREATININE 0.77 mg/dl (0.60-1.20); GLUCOSE 183 mg/dl (70-99); POTASSIUM 3.5 mmol/L (3.5-5.1); SODIUM 135 mmol/L (136-145)
[2017-06-05 04:56] LABS: ALKALINE PHOSPHATASE 150 U/L (45-117)
[2017-06-05] MEDS ORDERED: PROTHROMBIN COMP CONC- KCENTRA 2,000 UNIT in SYRINGE 0 ML IV STA ×2 (05:39→05:51)
[2017-06-05] MEDS ORDERED: FENTANYL CITRATE INJ 50 MCG/1 ML 2 ML VIAL IV STA (05:45)
[2017-06-05 06:16] LABS: URINE APPEARANCE CLOUDY (CLEAR); URINE COLOR ORANGE; URINE EPITHELIAL CELL AUTO >30 /lpf (0-5); URINE NITRITE POS (NEG); URINE SPECIFIC GRAVITY 1.032 (1.000-1.030); UROBILINOGEN NEG (NEG); ZZUR CULT IF INDIC CLEAN CATCH YES
[2017-06-05 06:23] VITALS: BP 115/93; PULSE 130; TEMP 36.5; O2SAT 96
[2017-06-05 06:24] LABS: MANUAL MICROSCOPIC REQUIRED? NO; REVIEW REQ? YES
[2017-06-05] MEDS ORDERED: PROCHLORPERAZINE 5 MG/ML 2 ML VIAL IV STA (06:24)
[2017-06-05] MEDS ORDERED: PROCHLORPERAZINE 5 MG/ML 2 ML VIAL ONE (06:25)
[2017-06-05 06:26] LABS: URINE BILIRUBIN NEG (NEG)
[2017-06-05 06:30] VITALS: O2SAT 95
[2017-06-05 06:35] VITALS: BP 104/50; PULSE 121; O2SAT 99
[2017-06-05 06:41] LABS: URINE MUCUS PRESENT (NONE PRSENT)
[2017-06-05 06:44] VITALS: BP 104/50; PULSE 121; O2SAT 99
--- NOTE | 2017-06-05 07:03 | DIAGNOSTIC IMAGING REPORT ---
CHEST ONE VIEW PORTABLE CLINICAL HISTORY: WBC elevation, VOMITING COMPARISON STUDY: Chest CT September 03, 2016. FINDINGS: Tip of nasogastric tube is within the distal body of the stomach. A right subclavian [id number] is in place as well as a dual lead left subclavian pacemaker. There is no evidence of pulmonary edema. There is no consolidation to suggest pneumonia. Cardiomediastinal silhouette is stable. No pneumothorax or pleural effusion is present. IMPRESSION: 1. Tip of nasogastric tube within the distal body of the stomach. 2. No acute cardiopulmonary findings. Electronically signed by: Issa Joseph M.D. 06/05/2017 7:02 AM Dictated Date/Time: 06/05/2017 7:00 AM
--- NOTE | 2017-06-05 07:04 | DIAGNOSTIC IMAGING REPORT ---
KUB CLINICAL HISTORY: NG tube place, vomiting. Pancreatic cancer. COMPARISON STUDY: CT of the abdomen and pelvis September 03, 2016. FINDINGS: The tip of the nasogastric tube is within the distal body of the stomach. There are bowel anastomoses and upper abdominal surgical clips. The bowel gas pattern is unremarkable. IMPRESSION: 1. No radiographic evidence for a bowel obstruction. 2. Tip of nasogastric tube within the distal body of the stomach. Electronically signed by: Issa Joseph M.D. 06/05/2017 7:03 AM Dictated Date/Time: 06/05/2017 7:02 AM
== END 2017-06-05 06:55 | disposition short-term general hospital (02) ==
LOC: EDBD 03:24 → C.EDA 03:26
DX: K92.2 Gastrointestinal hemorrhage, unspecified (principal); K85.90 Acute pancreatitis without necrosis or infection, unspecified; C25.9 Malignant neoplasm of pancreas, unspecified; I48.91 Unspecified atrial fibrillation; I10 Essential (primary) hypertension; Z79.01 Long term (current) use of anticoagulants; Z79.4 Long term (current) use of insulin; Z90.49 Acquired absence of other specified parts of digestive tract

== ENCOUNTER → 2017-06-16 | Outpatient (CLI) | payer OTHER ==
[~2017-06-16] MED LIST changes: -DIGO0.1219 PO; +DILT120C43 PO; -DILT120C68 PO; +LNX125 PO; +LVMI SQ; +METO50TA16 PO; +METO5TAB2 PO; +MRN5 PO; -ONDA8TAB6 PO; -OXYC1TAB3 PO; +PANT40TA PO; -PRLSR20 PO; -PROC1TAB5 PO; -PROP1CAP PO; +SULF800T23 PO; -XLD/500 PO
[2017-06-16 14:00] LABS: HEMATOCRIT 35.9 % (37-47); MEAN CORPUSCULAR HEMOGLOBIN 27.7 pg (25-34); MEAN CORPUSCULAR HGB CONC 31.5 g/dl (32-36); MEAN PLATELET VOLUME 9.5 fL (7.4-10.4); PLATELET COUNT 715 K/uL (130-400); RED BLOOD COUNT 4.08 M/uL (4.2-5.4); WHITE BLOOD COUNT 11.94 K/uL (4.8-10.8)
== END | disposition home or self-care (01) ==
LOC: C.LAB 12:51
PROVIDERS: ATTEND Family Medicine
DX: R11.10 Vomiting, unspecified (principal); C25.9 Malignant neoplasm of pancreas, unspecified; K92.2 Gastrointestinal hemorrhage, unspecified

== ENCOUNTER 2017-10-11 09:07 | Emergency (ER) | payer SELFPAY ==
[~2017-10-11] VITALS: Ht 154.9 cm; Wt 69.2 kg
[2017-10-11 09:13] VITALS: TEMP 36.6; Ht 154.9 cm; Wt 69.2 kg
--- NOTE | 2017-10-11 09:55 | EMERGENCY ROOM VISIT NOTE ---
History First contact with patient: 09:16 Chief Complaint: WOUND DEHISCENCE Stated Complaint: INCISION DRAINAGE History of Present Illness The patient is a 72 year old female with hx of AFib, HTN, pancreatic cancer s/p whipple procedure in Feb 2017 who presents to the Emergency Room with complaints of new surgical site opening with active yellowish/white drainage. According to daughter she has a mid surgical scar site chronic opening which she packs daily post procedure. But about 10 days ago, she noted a more superior surgical incision site opening. Pt was afebrile at the time. Daughter called [facility] surgeon who suggested ED visit but site closed and she was not taken to the ED the following day. 2 days ago mother reported skin irritation again, site looked fine and daughter covered it with a band-aid. However yesterday superior surgical incision site reopened again and this AM it was noted to be draining yellowish/white creamy stuff and she was brought here. Of note: CT 2 weeks ago noted significant inflammation and abscess. Review of Systems see below Constitutional: No fever Respiratory: No shortness of breath Cardiovascular: No chest pain Abdomen: + pain, No nausea, No vomiting, No diarrhea, No constipation Past Medical/Surgical History Medical Problems: (1) Atrial fibrillation (2) HTN (hypertension) (3) Pancreatic cancer Family History Patient reports no known family medical history. Social History Smoking Status: Never Smoker Alcohol Use: none Housing Status: lives with family Occupation Status: retired Current/Historical Medications Scheduled Ciprofloxacin (Ciprofloxacin HCl), 1 TAB PO BID Digoxin (Digoxin), 0.125 MG PO DAILY Dronabinol (Marinol), 5 MG PO BID Insulin Glargine (Lantus Solostar), 15 UNITS SC QAM Metoprolol Tartrate (Lopressor) (Lopressor), 50 MG PO BID Metronidazole (Flagyl), 500 MG PO TID Pantoprazole (Protonix), 40 MG PO DAILY Sulfa/Trimethoprim (Bactrim Ds 800MG/160MG), 1 TAB PO BID Physical Exam Vital Signs Date Time Temp Pulse Resp B/P (MAP) Pulse Ox O2 Delivery O2 Flow Rate FiO2 10/11/17 12:30 72 16 106/77 92 Room Air 10/11/17 09:13 36.6 98 18 101/56 99 Room Air Physical Exam see below Head: normocephalic, atraumatic Eyes: normal inspection Respiratory/Chest: lungs clear, normal breath sounds Cardiovascular: regular rate, rhythm Abdomen / GI: normal bowel sounds, soft, + tenderness (over surgical incision site), + pertinent finding (2 openings over midline whipple procedure incision site; superior opening with active yellowish/white drainage and inferior opening with packing; no surrounding erythema) Extremities: normal inspection Neurologic/Psych: alert Medical Decision & Procedures Laboratory Results 10/11/17 10:50 Red Blood Count 3.86, Mean Corpuscular Volume 83.4, Mean Corpuscular Hemoglobin 28.0, Mean Corpuscular Hemoglobin Concent 33.5, Mean Platelet Volume 10.3, Neutrophils (%) (Auto) 82.6, Lymphocytes (%) (Auto) 11.2, Monocytes (%) (Auto) 5.2, Eosinophils (%) (Auto) 0.5, Basophils (%) (Auto) 0.1, Neutrophils # (Auto) 10.54, Lymphocytes # (Auto) 1.43, Monocytes # (Auto) 0.66, Eosinophils # (Auto) 0.07, Basophils # (Auto) 0.01 10/11/17 10:50 Test 10/11/17 10:50 White Blood Count 12.76 K/uL (4.8-10.8) Red Blood Count 3.86 M/uL (4.2-5.4) Hemoglobin 10.8 g/dL (12.0-16.0) Hematocrit 32.2 % (37-47) Mean Corpuscular Volume 83.4 fL (80-100) Mean Corpuscular Hemoglobin 28.0 pg (25-34) Mean Corpuscular Hemoglobin Concent 33.5 g/dl (32-36) Platelet Count 198 K/uL (130-400) Mean Platelet Volume 10.3 fL (7.4-10.4) Neutrophils (%) (Auto) 82.6 % Lymphocytes (%) (Auto) 11.2 % Monocytes (%) (Auto) 5.2 % Eosinophils (%) (Auto) 0.5 % Basophils (%) (Auto) 0.1 % Neutrophils # (Auto) 10.54 K/uL (1.4-6.5) Lymphocytes # (Auto) 1.43 K/uL (1.2-3.4) Monocytes # (Auto) 0.66 K/uL (0.11-0.59) Eosinophils # (Auto) 0.07 K/uL (0-0.5) Basophils # (Auto) 0.01 K/uL (0-0.2) RDW Standard Deviation 48.3 fL (36.4-46.3) RDW Coefficient of Variation 15.8 % (11.5-14.5) Immature Granulocyte % (Auto) 0.4 % Immature Granulocyte # (Auto) 0.05 K/uL (0.00-0.02) Anion Gap 7.0 mmol/L (3-11) Est Creatinine Clear Calc Drug Dose 57.0 ml/min Estimated GFR () 88.2 Estimated GFR (Non- 76.1 BUN/Creatinine Ratio 22.4 (10-20) Calcium Level 8.9 mg/dl (8.5-10.1) Total Bilirubin 0.7 mg/dl (0.2-1) Direct Bilirubin 0.3 mg/dl (0-0.2) Aspartate Amino Transf (AST/SGOT) 21 U/L (15-37) Alanine Aminotransferase (ALT/SGPT) 35 U/L (12-78) Alkaline Phosphatase 111 U/L (45-117) Total Protein 6.6 gm/dl (6.4-8.2) Albumin 2.8 gm/dl (3.4-5.0) Medications Administered Medications (Trade) Dose Ordered Sig/Jojo Route Start Time Stop Time Status Last Admin Dose Admin Sodium Chloride 1,000 ml @ 125 mls/hr Q8H IV 10/11/17 10:00 11/10/17 09:59 10/11/17 11:36 125 MLS/HR Medical Decision 72 year old female with hx of AFib, HTN, pancreatic cancer s/p Whipple procedure in Feb 2017 presents to the Emergency Room with complaints of new surgical incision site opening with active yellowish/white drainage concerning for possible drainage abscess vs. fistula between gastric remnant and incision site. -Ct abdomen 09/30: Extensive inflammatory change at the gastrectomy site, consequence of overlying inflammatory change of the surgical incision site. Small abscess of incision site, draining into the open wound. -Repeat abdominal CT with oral and IV contrast to rule out fistula between gastric remnant and incision site: concerning for gastric wall thickening at the site of partial gastrectomy; contiguous with anterior abdominal wall fluid collection; fistulous communication suspected -Ordered CBC, BMP, LFT - concerning for WBC of 12.8 with elevated immature granulocytes and neutrophils; low but stable H/H of 10.8/32.2; elevated direct bilirubin of 0.3 and chronic low albumin of 2.8; also mild hyponatremia of 134 and elevated glucose of 262 -Ordered NS 125ml/hr - started at 1000 -Ordered morphine 2mg IV for pain x 1 - received at 09:56 Based on lab and imaging consistent with likely fistulous communication between partial gastrectomy site and anterior abdominal wall with potential infection given WBC elevation. Communicated findings with one of the physicians working with her oncologist Dr. Pickering at [place]. Instructed to start her on empiric antibiotic coverage for a few weeks; pt should continue eating; will consider endoscopic procedure for potential closure at appointment next week with Dr. Pickering. Patient discharged home with Ciprofloxacin 500mg BID x 3 weeks and Flagyl 500mg TID x 2 weeks. Patient instructed to continue current Bactrim antibiotic as well. Patient instructed to return if having localized erythema, fever or worsening symptoms. Medication Reconcilliation Current Medication List: was personally reviewed by pa Blood Pressure Screening Patient's blood pressure: Low blood pressure Impression Primary Impression: Abdominal wall fistula Resident Involvement: Resident Care Provided Care Provided: Adult ED Departure Information Dispostion Home / Self-Care Condition GOOD Prescriptions Metronidazole (Flagyl) 500 Mg Tab 500 MG PO TID for 14 Days, #42 TAB Prov: Tiarra Ferguson M.D. 10/11/17 Ciprofloxacin (Ciprofloxacin HCl) 500 Mg Tab 1 TAB PO BID for 14 Days, #28 TAB Prov: Tiarra Ferguson M.D. 10/11/17 Referrals Michael Maxwell MD (PCP) Patient Instructions My [facility] Additional Instructions Take ciprofloxacin 500mg twice a day Take Flagyl 500mg three times a day Follow up with Oncologist, Dr. Pickering as scheduled next week Follow up with primary care physician in 1-2 days
[2017-10-11] MEDS ORDERED: MoRPHine SULFATE 2 MG/ML CARP IV STA (09:56)
[2017-10-11] MEDS ORDERED: SODIUM CHLORIDE 0.9% 1000ML 1,000 ML IV SCH (10:00)
[2017-10-11] MEDS ORDERED: OPTIRAY 320 IV PRN (10:15)
[2017-10-11] MEDS ORDERED: INSDGIPEN SC (10:47)
[2017-10-11] MEDS ORDERED: MRN5 PO (10:47)
[2017-10-11 11:03] LABS: BASO % 0.1 %; BASO ABS # 0.01 K/uL (0-0.2); EOS % 0.5 %; EOS ABS # 0.07 K/uL (0-0.5); HEMATOCRIT 32.2 % (37-47); HEMOGLOBIN 10.8 g/dL (12.0-16.0); IG# 0.05 K/uL (0.00-0.02); LYMPH % 11.2 %; LYMPH ABS # 1.43 K/uL (1.2-3.4); MEAN CELL VOLUME 83.4 fL (80-100); MEAN CORPUSCULAR HGB CONC 33.5 g/dl (32-36); MEAN PLATELET VOLUME 10.3 fL (7.4-10.4); MONO % 5.2 %; MONO ABS # 0.66 K/uL (0.11-0.59); NEUT % 82.6 %; NEUT ABS # 10.54 K/uL (1.4-6.5); PLATELET COUNT 198 K/uL (130-400); RED CELL DISTRIBUTION WIDTH CV 15.8 % (11.5-14.5); RED CELL DISTRIBUTION WIDTH SD 48.3 fL (36.4-46.3); WHITE BLOOD COUNT 12.76 K/uL (4.8-10.8)
[2017-10-11 11:21] LABS: CREATININE 0.77 mg/dl (0.60-1.20)
[2017-10-11 11:22] LABS: ALBUMIN 2.8 gm/dl (3.4-5.0); CALCIUM 8.9 mg/dl (8.5-10.1); POTASSIUM 4.1 mmol/L (3.5-5.1)
[2017-10-11 11:24] LABS: TOTAL PROTEIN 6.6 gm/dl (6.4-8.2)
--- NOTE | 2017-10-11 12:30 | DIAGNOSTIC IMAGING REPORT ---
CT ABD WITH IV AND ORAL CONT (CT) CLINICAL HISTORY: History of Whipple. 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 Abnormal incisional drainage. PANCREATIC CARCINOMA COMPARISON STUDY: September 30, 2017 TECHNIQUE: Following the IV administration of 120 mL of Optiray-320, CT scan of the abdomen and pelvis was performed from the lung bases to the proximal femurs. Images are reviewed in the axial, sagittal, and coronal planes. IV contrast was administered without complication. A dose lowering technique was utilized adhering to the principles of ALARA. CT DOSE: 189.78 mGy.cm FINDINGS: Lower chest: The heart is normal in size and configuration, without pericardial effusion. The lung bases and pleural spaces are clear. Liver: There is hepatic steatosis. There is persistent abnormal left lobe hepatic enhancement. This appears similar to the preceding study. There is pneumobilia. There is a persistent indeterminate 13 mm hypodensity within the liver just prepatellar the diaphragm. Gallbladder: Surgically absent Spleen: The spleen is mildly enlarged measuring 13.7 cm. No focal splenic masses are visualized. Pancreas: There is persistent pancreatic ductal dilatation. There are surgical clips at the level of the pancreatic head. The patient appears be status post pancreatic head resection. Adrenal glands: Unremarkable. Kidneys: There is a stable 2 cm left renal cyst. No solid renal masses are visualized. There is no hydronephrosis. Bowel: There are no transition zones to indicate bowel obstruction. There is thickening of the anterior gastric wall at the level of the partial gastrectomy site. This is contiguous with the anterior abdominal wall fluid collection which contains air bubbles. A fistula the gastric remnant is suspected. Peritoneum: There is no intraperitoneal free air or abdominal ascites. Vasculature: The abdominal aorta is normal in course and caliber. Adenopathy: None. Skeletal structures: No destructive osseous lesions are seen. IMPRESSION: 1. Postsurgical changes of a Whipple. 2. Persistent extensive heterogeneous left lobe hepatic enhancement similar to the preceding study 3. Postsurgical pneumobilia 4. Gastric wall thickening at the site of the partial gastrectomy. This is contiguous with an anterior abdominal wall fluid collection which contains air. A fistulous communication is suspected. Electronically signed by: Carlos A Ewing M.D. 10/11/2017 12:29 PM Dictated Date/Time: 10/11/2017 12:20 PM
--- NOTE | 2017-10-11 13:52 | EMERGENCY ROOM VISIT NOTE ---
History Report prepared by Yandy: Radha Waters Under the Supervision of: Dr. Sharona Nino M.D. First contact with patient: 09:16 Chief Complaint: WOUND DEHISCENCE Stated Complaint: INCISION DRAINAGE Nursing Triage Summary: PT HERE WITH BLEEDING AND SEROUS DISCHARGE FROM TOP AND BOTTOM PORTIONS OF INCISON SITE ON ABD. PT HAD WHIPPLE SURGERY DONE LAST FALL AND INCISION HAS BEEN PACKED BY DAUGHTER SINCE. DAUGHTER STATES INCISION SEEMS TO BE MORE IRRITATED THAN NORMAL. MINIMAL REDNESS TO AREA History of Present Illness The patient is a 72 year old female who presents to the Emergency Room with complaints of a constant abdominal wound dehiscence for the past 10 days. The history is obtained from the patient's daughter who acted as a railroad dining car stewardess. The patient has a history of pancreatic cancer and a whipple surgery in Feb 2017. She has a mid-surgical scar site with a chronic opening which daughter packs daily. About 10 days ago she noted a more superior surgical incision site opening. Pt was afebrile at that time. Daughter called [facility] surgeon who suggested ED visit but site closed and she was not taken to the ED the following day. 2 days ago mother reported skin irritation again, site looked fine and daughter covered it with a band-aid. However yesterday superior surgical incision site reopened again and this morning it was noted to be draining yellowish/white discharge and she was brought here. Of note: CT 2 weeks ago noted significant inflammation and abscess. Source of History: patient, family (daughter) Onset: 10 days ago Position: abdomen Quality: other (dehiscence) Timing: constant Associated Symptoms: No fevers Review of Systems See HPI for pertinent positives & negatives. A total of 10 systems reviewed and were otherwise negative. Past Medical & Surgical Medical Problems: (1) Atrial fibrillation (2) HTN (hypertension) (3) Pancreatic cancer Family History Patient reports no known family medical history. Social History Smoking Status: Never Smoker Alcohol Use: none Housing Status: lives with family Occupation Status: retired Current/Historical Medications Scheduled Ciprofloxacin (Ciprofloxacin HCl), 1 TAB PO BID Digoxin (Digoxin), 0.125 MG PO DAILY Dronabinol (Marinol), 5 MG PO BID Insulin Glargine (Lantus Solostar), 15 UNITS SC QAM Metoprolol Tartrate (Lopressor) (Lopressor), 50 MG PO BID Metronidazole (Flagyl), 500 MG PO TID Pantoprazole (Protonix), 40 MG PO DAILY Sulfa/Trimethoprim (Bactrim Ds 800MG/160MG), 1 TAB PO BID Allergies Coded Allergies: No Known Allergies (Unverified , 11/27/16) Physical Exam Vital Signs Date Time Temp Pulse Resp B/P (MAP) Pulse Ox O2 Delivery O2 Flow Rate FiO2 10/11/17 14:42 84 16 118/68 98 10/11/17 12:30 72 16 106/77 92 Room Air 10/11/17 09:13 36.6 98 18 101/56 99 Room Air Physical Exam Vital signs reviewed. General: Well-appearing elderly female, in no significant distress. HEENT: No scleral icterus, PERRLA, neck supple. Atraumatic. Cardiovascular: Regular rate and rhythm, no extra sounds. Pulmonary: Clear to auscultation bilaterally, normal work of breathing. Abdomen: Soft, healing incision to the midline abdomen with a small area of drainage proximally about 0.5cm. Central portion of scar 1 cm opening with packing in place. Induration distal to the proximal induration and tenderness to the area which causes drainage from the wound to palpation. Musculoskeletal: Atraumatic, no peripheral edema. Neurologic: Patient awake alert and oriented x 3, full strength in all 4 extremities. Cranial nerves 2 through 12 grossly intact. Skin: Warm, dry, no rash Medical Decision & Procedures ER Provider Diagnostic Interpretation: Radiology results as stated below per my review and radiologist interpretation: CT ABD WITH IV AND ORAL CONT (CT) CLINICAL HISTORY: History of Whipple. 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 Abnormal incisional drainage. PANCREATIC CARCINOMA COMPARISON STUDY: September 30, 2017 TECHNIQUE: Following the IV administration of 120 mL of Optiray-320, CT scan of the abdomen and pelvis was performed from the lung bases to the proximal femurs. Images are reviewed in the axial, sagittal, and coronal planes. IV contrast was administered without complication. A dose lowering technique was utilized adhering to the principles of ALARA. CT DOSE: 189.78 mGy.cm FINDINGS: Lower chest: The heart is normal in size and configuration, without pericardial effusion. The lung bases and pleural spaces are clear. Liver: There is hepatic steatosis. There is persistent abnormal left lobe hepatic enhancement. This appears similar to the preceding study. There is pneumobilia. There is a persistent indeterminate 13 mm hypodensity within the liver just prepatellar the diaphragm. Gallbladder: Surgically absent Spleen: The spleen is mildly enlarged measuring 13.7 cm. No focal splenic masses are visualized. Pancreas: There is persistent pancreatic ductal dilatation. There are surgical clips at the level of the pancreatic head. The patient appears be status post pancreatic head resection. Adrenal glands: Unremarkable. Kidneys: There is a stable 2 cm left renal cyst. No solid renal masses are visualized. There is no hydronephrosis. Bowel: There are no transition zones to indicate bowel obstruction. There is thickening of the anterior gastric wall at the level of the partial gastrectomy site. This is contiguous with the anterior abdominal wall fluid collection which contains air bubbles. A fistula the gastric remnant is suspected. Peritoneum: There is no intraperitoneal free air or abdominal ascites. Vasculature: The abdominal aorta is normal in course and caliber. Adenopathy: None. Skeletal structures: No destructive osseous lesions are seen. IMPRESSION: 1. Postsurgical changes of a Whipple. 2. Persistent extensive heterogeneous left lobe hepatic enhancement similar to the preceding study 3. Postsurgical pneumobilia 4. Gastric wall thickening at the site of the partial gastrectomy. This is contiguous with an anterior abdominal wall fluid collection which contains air. A fistulous communication is suspected. Electronically signed by: Carlos A Ewing M.D. 10/11/2017 12:29 PM Dictated Date/Time: 10/11/2017 12:20 PM Laboratory Results 10/11/17 10:50 Red Blood Count 3.86, Mean Corpuscular Volume 83.4, Mean Corpuscular Hemoglobin 28.0, Mean Corpuscular Hemoglobin Concent 33.5, Mean Platelet Volume 10.3, Neutrophils (%) (Auto) 82.6, Lymphocytes (%) (Auto) 11.2, Monocytes (%) (Auto) 5.2, Eosinophils (%) (Auto) 0.5, Basophils (%) (Auto) 0.1, Neutrophils # (Auto) 10.54, Lymphocytes # (Auto) 1.43, Monocytes # (Auto) 0.66, Eosinophils # (Auto) 0.07, Basophils # (Auto) 0.01 10/11/17 10:50 Test 10/11/17 10:50 White Blood Count 12.76 K/uL (4.8-10.8) Red Blood Count 3.86 M/uL (4.2-5.4) Hemoglobin 10.8 g/dL (12.0-16.0) Hematocrit 32.2 % (37-47) Mean Corpuscular Volume 83.4 fL (80-100) Mean Corpuscular Hemoglobin 28.0 pg (25-34) Mean Corpuscular Hemoglobin Concent 33.5 g/dl (32-36) Platelet Count 198 K/uL (130-400) Mean Platelet Volume 10.3 fL (7.4-10.4) Neutrophils (%) (Auto) 82.6 % Lymphocytes (%) (Auto) 11.2 % Monocytes (%) (Auto) 5.2 % Eosinophils (%) (Auto) 0.5 % Basophils (%) (Auto) 0.1 % Neutrophils # (Auto) 10.54 K/uL (1.4-6.5) Lymphocytes # (Auto) 1.43 K/uL (1.2-3.4) Monocytes # (Auto) 0.66 K/uL (0.11-0.59) Eosinophils # (Auto) 0.07 K/uL (0-0.5) Basophils # (Auto) 0.01 K/uL (0-0.2) RDW Standard Deviation 48.3 fL (36.4-46.3) RDW Coefficient of Variation 15.8 % (11.5-14.5) Immature Granulocyte % (Auto) 0.4 % Immature Granulocyte # (Auto) 0.05 K/uL (0.00-0.02) Anion Gap 7.0 mmol/L (3-11) Est Creatinine Clear Calc Drug Dose 57.0 ml/min Estimated GFR () 88.2 Estimated GFR (Non- 76.1 BUN/Creatinine Ratio 22.4 (10-20) Calcium Level 8.9 mg/dl (8.5-10.1) Total Bilirubin 0.7 mg/dl (0.2-1) Direct Bilirubin 0.3 mg/dl (0-0.2) Aspartate Amino Transf (AST/SGOT) 21 U/L (15-37) Alanine Aminotransferase (ALT/SGPT) 35 U/L (12-78) Alkaline Phosphatase 111 U/L (45-117) Total Protein 6.6 gm/dl (6.4-8.2) Albumin 2.8 gm/dl (3.4-5.0) Laboratory results per my review. Medications Administered Medications (Trade) Dose Ordered Sig/Jojo Route Start Time Stop Time Status Last Admin Dose Admin Sodium Chloride 1,000 ml @ 125 mls/hr Q8H IV 10/11/17 10:00 10/11/17 15:01 DC 10/11/17 11:36 125 MLS/HR ED Course 0916: Past medical records reviewed. The patient was evaluated in room A11B. A complete history and physical examination was performed. 0956: Morphine sulfate 2 mg IV - pt refused 1000: NSS 1000 ml @ 125 mls/hr IV 1011: I updated the patient and her daughter. 1310: I spoke with the patient and her daughter regarding the patient's CT results. 1330: Dr Ferguson discussed the case with the patient's surgeons in [place]. They advised allowing the patient to eat and start her on antibiotics. They will follow-up in the office next week. 1402: Resident Dr Ferguson reassessed the patient at this time. She is feeling better and resting comfortably. She discussed the results and treatment plan with the patient and her daughter. She answered all pertaining questions that they had. They expressed understanding and verbalized agreement. The patient will be discharged home. Medical Decision Differential diagnoses includes non-healing abdominal wound, fistulous tract, abscess, hematoma, cellulitis. This patient was evaluated and appeared to be in no significant distress. Physical examination reveals 2 small areas of opening to the patient's healing abdominal wound. The more centrally located wound is apparently chronic and is packed on a regular basis. The newer, smaller opening with drainage today is tender to palpation. CT scan of the abdomen and pelvis from 2 weeks ago was reviewed. There is a concern for developing fistula on my part. I did speak with Dr. Shah of radiology has recommended a CT scan of the abdomen with p.o. and IV contrast. The CT is read by radiology as a likely fistula. Case was discussed with the patient's surgeon at [facility] who has requested p.o. antibiotics and follow-up in their office next week. The patient is not toxic at this time and able to tolerate fluids p.o. She will follow-up with them as scheduled and return to the ER for worsening of symptoms or any medical concerns. Medication Reconcilliation Current Medication List: was personally reviewed by me Blood Pressure Screening Patient's blood pressure: Normal blood pressure Consults Time Called: 1321 Consulting Physician: surgeon at [place] Returned Call: 1330 Discussed the case with the patient's surgeons in [place]. They said to allow the patient to eat and start her on antibiotics. They will follow-up in the office next week. Impression Primary Impression: Abdominal wall fistula Scribe Attestation The scribe's documentation has been prepared under my direction and personally reviewed by me in its entirety. I confirm that the note above accurately reflects all work, treatment, procedures, and medical decision making performed by me. Departure Information Dispostion Home / Self-Care Prescriptions Metronidazole (Flagyl) 500 Mg Tab 500 MG PO TID for 14 Days, #42 TAB Prov: Tiarra Ferguson M.D. 10/11/17 Ciprofloxacin (Ciprofloxacin HCl) 500 Mg Tab 1 TAB PO BID for 14 Days, #28 TAB Prov: Tiarra Ferguson M.D. 10/11/17 Referrals Michael Maxwell MD (PCP) Forms HOME CARE DOCUMENTATION FORM, IMPORTANT VISIT INFORMATION, WORK / SCHOOL INSTRUCTIONS Patient Instructions My [facility] Additional Instructions Take ciprofloxacin 500mg twice a day Take Flagyl 500mg three times a day Follow up with Oncologist, Dr. Pickering as scheduled next week Follow up with primary care physician in 1-2 days
[2017-10-11] MEDS ORDERED: CPR/500 PO (14:03)
[2017-10-11] MEDS ORDERED: METR-163 PO (14:04)
[2017-10-11 14:42] VITALS: BP 118/68; PULSE 84; O2SAT 98
--- NOTE | 2017-10-12 11:41 | Pharmacy Progress Note ---
ED Pharmacist Counseling Note Date of Service: Oct 12, 2017. Patient's daughter called requesting a change in dose of antibiotic. She reports her mom has been experiencing dizziness and weakness since her doses of antibiotics last night and it has continued this morning. She denied fevers, shaking, sweating, erythema/worsening of surgical site, change in mental status. Counseled that Youmn should return to ED if she experiences any of the above symptoms. However, it also seems likely that the antibiotics are causing her new symptoms. Spoke with Dr. Marty SUTTON to stop ciprofloxacin and metronidazole and switch to Augmentin as follows. Prescription for Augmentin 875 mg po BID x14 days, 0 refill, called to [facility] at the patient's daughter's request. Daughter acknowledged understanding of return instructions. She also acknowledged understanding that the two newer antibiotics prescribed yesterday ( ciprofloxacin, metronidazole) can be stopped, but that the patient should continue on her previously prescribed Bactrim. I counseled that Augmentin should be taken with food to help minimize GI upset.
== END 2017-10-11 14:43 | disposition home or self-care (01) ==
LOC: C.EDB 09:09 → C.EDA 14:43
DX: T81.32XA Disruption of internal operation (surgical) wound, not elsewhere classified, initial encounter (principal); L98.8 Other specified disorders of the skin and subcutaneous tissue; Y83.8 Other surgical procedures as the cause of abnormal reaction of the patient, or of later complication, without mention of misadventure at the time of the procedure; I10 Essential (primary) hypertension; C25.9 Malignant neoplasm of pancreas, unspecified

== ENCOUNTER 2018-01-26 09:35 | Observation (INO) | payer SELFPAY ==
[~2018-01-26] VITALS: Ht 154.9 cm; Wt 67.7 kg
[~2018-01-26 09:35] MED LIST changes: -APIX1TAB3 PO; -DILT120C43 PO; +INSDGI SC; -LVMI SQ; -METO5TAB2 PO; -MRN5 PO
[2018-01-26] MEDS ORDERED: ONDANSETRON INJ 2 MG/ML 2 ML VIAL IV STA (10:07)
[2018-01-26] MEDS ORDERED: SODIUM CHLORIDE 0.9% 1000ML 1,000 ML IV STA (10:07)
[2018-01-26] MEDS ORDERED: PIPERACILLIN/TAZOBACTAM 4.5 GM/100ML D5W IV STA (10:07)
[2018-01-26 10:52] LABS: BASO % 0.2 %; BASO ABS # 0.02 K/uL (0-0.2); EOS % 0.7 %; EOS ABS # 0.07 K/uL (0-0.5); HEMATOCRIT 32.4 % (37-47); HEMOGLOBIN 10.7 g/dL (12.0-16.0); IG# 0.05 K/uL (0.00-0.02); LYMPH % 10.1 %; LYMPH ABS # 1.06 K/uL (1.2-3.4); MEAN CELL VOLUME 83.1 fL (80-100); MEAN CORPUSCULAR HEMOGLOBIN 27.4 pg (25-34); MEAN PLATELET VOLUME 10.3 fL (7.4-10.4); MONO % 6.1 %; MONO ABS # 0.64 K/uL (0.11-0.59); NEUT % 82.4 %; NEUT ABS # 8.66 K/uL (1.4-6.5); PLATELET COUNT 277 K/uL (130-400); RED CELL DISTRIBUTION WIDTH CV 16.2 % (11.5-14.5); RED CELL DISTRIBUTION WIDTH SD 48.9 fL (36.4-46.3)
[2018-01-26 11:00] LABS: INR 1.1 (0.9-1.1); PTT PATIENT 28.3 SECONDS (21.0-31.0)
[2018-01-26 11:06] LABS: ALBUMIN 2.7 gm/dl (3.4-5.0); CALCIUM 8.6 mg/dl (8.5-10.1); CREATININE 0.6 mg/dl (0.60-1.20); POTASSIUM 3.7 mmol/L (3.5-5.1); TOTAL PROTEIN 6.2 gm/dl (6.4-8.2)
[2018-01-26] MEDS ORDERED: ENOX120I SQ (11:08)
[2018-01-26] MEDS ORDERED: NovoLIN-R INSULIN PER UNIT CHARGE IV STA ×2 (11:09→12:58)
[2018-01-26] MEDS ORDERED: MAGNESIUM SULFATE 1GM / D5W 1 GM BAG IV STA (11:09)
[2018-01-26] MEDS ORDERED: OPTIRAY 320 IV PRN (11:45)
--- NOTE | 2018-01-26 13:09 | DIAGNOSTIC IMAGING REPORT ---
CT SCAN OF THE ABDOMEN AND PELVIS WITH IV CONTRAST CLINICAL HISTORY: Generalized abdominal pain. History of a Whipple procedure. Concern for fistula. COMPARISON STUDY: Abdominal CT dated 10/11/2017 and 09/30/2017. TECHNIQUE: Following the IV administration of 94 cc of Optiray 320, CT scan of the abdomen and pelvis is performed from the lung bases to the proximal femora. Images are reviewed in the axial, sagittal, and coronal planes. IV contrast was administered without complication. The patient declined oral contrast. Note that the examination is suboptimal without oral contrast. A dose lowering technique was utilized adhering to the principles of ALARA. The examination is degraded by motion artifact. CT DOSE: 600.84 mGycm FINDINGS: Lung bases: The heart is normal in size and without pericardial effusion. Pacemaker leads are noted. The coronary arteries are densely calcified. The lung bases are clear noting dependent atelectasis. Liver: The contrast-enhanced liver is normal in size and contour. There is markedly heterogeneous attenuation of the hepatic parenchyma, greatest in the segments IV and V this is similar in appearance to previous. Pneumobilia is noted. There is no significant intrahepatic biliary ductal dilatation. The main portal veins are patent. There is soft tissue attenuation material filling the common hepatic duct with ductal enhancement seen on axial image #132. Matted bowel loops in the tiffanie hepatis are consistent with pancreaticojejunostomy and hepaticojejunostomy. Gallbladder: Surgically absent noting clips in the gallbladder fossa. Spleen: The spleen is enlarged, measuring 14.6 cm in length. Pancreas: The pancreatic head is surgically absent. The pancreatic body and tail are moderately atrophic. The pancreatic duct is dilated, measuring up to 4 mm. There is thrombus suggested within the superior mesenteric vein on image #180, similar to previous and likely related to previous Whipple procedure. Adrenal glands: Unremarkable. Kidneys: The contrast enhanced kidneys demonstrate mild cortical atrophy and are without hydronephrosis. The kidneys enhance symmetrically. 1.9 cm cyst is seen in the left upper pole. Additional subcentimeter cortical hypodensities also likely represent cysts but are too small for definitive characterization. Abdominal vasculature: The abdominal aorta is normal in course and caliber noting moderate to advanced atherosclerotic calcification. Stomach and bowel: The distal stomach and duodenum are surgically absent consistent with a Whipple procedure. No bowel obstruction is seen. There is an apparent fistulous connection between the distal stomach just above the gastrojejunostomy extends through the ventral abdominal wall seen on image #149. There is also likely a fistulous connection between the transverse colon and the gastrojejunostomy seen on image #146. The appendix is not visualized. Peritoneum: There is a small volume of abdominopelvic ascites, greatest around the liver. No intraperitoneal free air is seen. Lymphadenopathy: None. Pelvic viscera: There are small foci of gas within the bladder lumen, likely related to recent instrumentation. The bladder is otherwise normal as visualized. There are uterine masses, likely resulting fibroids. No adnexal lesion is seen. Skeletal structures: The Skeletal structures are osteopenic. No lytic or blastic lesions are seen. IMPRESSION: 1. There are postoperative changes consistent with a Whipple procedure. 2. 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 3. Pneumobilia suggests patency of the hepaticojejunostomy. 4. There is debris filling the common hepatic duct with surrounding ductal enhancement. This nonspecific and similar appearance to previous, and may be related to previous surgery. Correlate clinically and with laboratory studies for evidence of cholangitis. 5. Again seen is marked heterogeneity of the hepatic parenchyma. This is similar in appearance to 10/11/2017, and could represent the sequelae of a previous infarct/perfusion phenomenon, geographic steatosis, or less likely cholangitis. Again, clinical and laboratory correlation will be essential. 6. There is no definitive evidence of metastatic disease in the abdomen or pelvis. 7. There is a small volume of abdominopelvic ascites, which has increased from 10/11/2017. 8. Splenomegaly. 9. Fibroid uterus. 10. Additional findings as above. Electronically signed by: Lg Hankins M.D. 01/26/2018 1:08 PM Dictated Date/Time: 01/26/2018 12:46 PM
--- NOTE | 2018-01-26 15:32 | History and Physical ---
History & Physical Date & Time of Service: Jan 26, 2018 at 15:31 Chief Complaint: Part Of Incision Is Open Primary Care Physician: Michael Maxwell MD History of Present Illness Source: patient, family (daughter), clinic records 72F with a PMHx of Whipple Procedure for Pancreatic CA, Liver Masses and Known Abdominal wall fistula presents today with an appearance of a 2nd infected fistula site. Per patient, she did not want to come to the hospital - history is provided by the daughter. Pt noticed increased drainage from a known fistula on her abdomen - daughter changes the dressings. And this morning there was a new fistula 4cm above the known fistula with erythema surrounding the site. Dr. Wilder spoke with the surgeon in [place] and the surgeon stated that the patient is not a surgical candidate. After discussing with Dr. Wilder we agreed that the patient be treated for cellulitis. This is likely a new fistula that will need to be dealt with conservatively. PMHx: Afib on dig and metoprolol, Pacemaker placement for sick sinus syndrome HTN Recent RLE DVT Past Medical/Surgical History Medical Problems: (1) Abdominal wall fistula (2) Acute upper GI bleed (3) Atrial fibrillation (4) Atrial fibrillation (5) Contusion of multiple sites (6) Contusion of multiple sites (7) Cough (8) Dyspnea (9) Fall (10) Fall (11) Hematemesis (12) History of blood clots (13) HTN (hypertension) (14) Pacemaker (15) Pancreatic cancer (16) Pancreatitis (17) Right leg DVT (18) Sick sinus syndrome with tachycardia Family History Patient reports no known family medical history. Social History Smoking Status: Never Smoker Occupational Status: retired Allergies Coded Allergies: No Known Allergies (Unverified , 11/27/16) Home Medications Scheduled Digoxin (Digoxin), 0.125 MG PO DAILY Enoxaparin (Lovenox), 100 MG SQ DAILY Insulin Glargine (Lantus), 15 SC QAM Metoprolol Tartrate (Lopressor) (Lopressor), 50 MG PO BID Pantoprazole (Protonix), 40 MG PO DAILY Sulfa/Trimethoprim (Bactrim Ds 800MG/160MG), 1 TAB PO BID Review of Systems Constitutional: + weight loss, No fever, No chills ENT: No hearing loss Respiratory: No cough, No sputum, No shortness of breath Abdomen: No pain, No nausea, No vomiting, No diarrhea, No constipation Musculoskeletal: No joint pain Genitourinary - Female: No dysuria Integumentary: No rash Physical Exam Vital Signs Date Time Temp Pulse Resp B/P (MAP) Pulse Ox O2 Delivery O2 Flow Rate FiO2 01/26/18 14:07 91 18 114/69 96 Room Air 01/26/18 12:38 92 18 117/64 96 Room Air 01/26/18 12:02 91 18 116/62 93 Room Air 01/26/18 10:38 96 20 120/63 94 Room Air 01/26/18 09:45 37.3 104 18 90/58 97 Room Air General Appearance: WD/WN, no apparent distress Head: normocephalic, atraumatic Eyes: normal inspection, PERRL, EOMI ENT: normal ENT inspection Neck: supple, no adenopathy Respiratory/Chest: chest non-tender, lungs clear, normal breath sounds, no respiratory distress, no accessory muscle use Cardiovascular: no edema, no gallop, no JVD, no murmur, + irregularly irregular , + pertinent finding (pacemaker subcutaneous) Abdomen/GI: non tender, soft, no pulsatile mass, + pertinent finding (two open fistulas in the abdomen which express purulent non foul smelling material. ) Back: normal inspection, no CVA tenderness, no muscle spasm, normal range of motion Extremities/Musculoskelatal: normal inspection, normal capillary refill, no pedal edema, normal range of motion, + pertinent finding (R calf is larger than left, palpation deferred to know previous DVT - do not want to embolize any dissolving clot) Neurologic/Psych: entertainer & comic II-XII nml as tested, no motor/sensory deficits, alert, normal mood/affect, normal reflexes, oriented x 3 (Lao Speaking) Diagnostics Laboratory Results Results Past 24 Hours Test 01/26/18 10:33 01/26/18 11:56 01/26/18 12:53 01/26/18 14:06 Range/Units White Blood Count 10.50 4.8-10.8 K/uL Red Blood Count 3.90 4.2-5.4 M/uL Hemoglobin 10.7 12.0-16.0 g/dL Hematocrit 32.4 37-47 % Mean Corpuscular Volume 83.1 80-100 fL Mean Corpuscular Hemoglobin 27.4 25-34 pg Mean Corpuscular Hemoglobin Concent 33.0 32-36 g/dl Platelet Count 277 130-400 K/uL Mean Platelet Volume 10.3 7.4-10.4 fL Neutrophils (%) (Auto) 82.4 % Lymphocytes (%) (Auto) 10.1 % Monocytes (%) (Auto) 6.1 % Eosinophils (%) (Auto) 0.7 % Basophils (%) (Auto) 0.2 % Neutrophils # (Auto) 8.66 1.4-6.5 K/uL Lymphocytes # (Auto) 1.06 1.2-3.4 K/uL Monocytes # (Auto) 0.64 0.11-0.59 K/uL Eosinophils # (Auto) 0.07 0-0.5 K/uL Basophils # (Auto) 0.02 0-0.2 K/uL RDW Standard Deviation 48.9 36.4-46.3 fL RDW Coefficient of Variation 16.2 11.5-14.5 % Immature Granulocyte % (Auto) 0.5 % Immature Granulocyte # (Auto) 0.05 0.00-0.02 K/uL Prothrombin Time 11.8 9.0-12.0 SECONDS Prothromb Time International Ratio 1.1 0.9-1.1 Activated Partial Thromboplast Time 28.3 21.0-31.0 SECONDS Partial Thromboplastin Ratio 1.1 Sodium Level 135 136-145 mmol/L Potassium Level 3.7 3.5-5.1 mmol/L Chloride Level 103 98-107 mmol/L Carbon Dioxide Level 24 21-32 mmol/L Anion Gap 8.0 3-11 mmol/L Blood Urea Nitrogen 10 7-18 mg/dl Creatinine 0.60 0.60-1.20 mg/dl Est Creatinine Clear Calc Drug Dose 72.4 ml/min Estimated GFR () 104.1 Estimated GFR (Non- 89.8 BUN/Creatinine Ratio 16.7 10-20 Random Glucose 302 70-99 mg/dl Calcium Level 8.6 8.5-10.1 mg/dl Magnesium Level 1.7 1.8-2.4 mg/dl Total Bilirubin 0.8 0.2-1 mg/dl Aspartate Amino Transf (AST/SGOT) 11 15-37 U/L Alanine Aminotransferase (ALT/SGPT) 11 12-78 U/L Alkaline Phosphatase 89 45-117 U/L Total Protein 6.2 6.4-8.2 gm/dl Albumin 2.7 3.4-5.0 gm/dl Globulin 3.5 2.5-4.0 gm/dl Albumin/Globulin Ratio 0.8 0.9-2 Lipase 360 73-393 U/L Beta-Hydroxybutyric Acid 2.81 0.2-2.81 mg/dL Digoxin Level 0.4 0.8-2.0 ng/ml Bedside Glucose 346 293 241 70-90 mg/dl Microbiology Results 01/26/18 Blood Culture, Received Pending 01/26/18 Blood Culture, Received Pending Diagnostic Radiology CT SCAN OF THE ABDOMEN AND PELVIS WITH IV CONTRAST CLINICAL HISTORY: Generalized abdominal pain. History of a Whipple procedure. Concern for fistula. COMPARISON STUDY: Abdominal CT dated 10/11/2017 and 09/30/2017. TECHNIQUE: Following the IV administration of 94 cc of Optiray 320, CT scan of the abdomen and pelvis is performed from the lung bases to the proximal femora. Images are reviewed in the axial, sagittal, and coronal planes. IV contrast was administered without complication. The patient declined oral contrast. Note that the examination is suboptimal without oral contrast. A dose lowering technique was utilized adhering to the principles of ALARA. The examination is degraded by motion artifact. CT DOSE: 600.84 mGycm FINDINGS: Lung bases: The heart is normal in size and without pericardial effusion. Pacemaker leads are noted. The coronary arteries are densely calcified. The lung bases are clear noting dependent atelectasis. Liver: The contrast-enhanced liver is normal in size and contour. There is markedly heterogeneous attenuation of the hepatic parenchyma, greatest in the segments IV and V this is similar in appearance to previous. Pneumobilia is noted. There is no significant intrahepatic biliary ductal dilatation. The main portal veins are patent. There is soft tissue attenuation material filling the common hepatic duct with ductal enhancement seen on axial image #132. Matted bowel loops in the tiffanie hepatis are consistent with pancreaticojejunostomy and hepaticojejunostomy. Gallbladder: Surgically absent noting clips in the gallbladder fossa. Spleen: The spleen is enlarged, measuring 14.6 cm in length. Pancreas: The pancreatic head is surgically absent. The pancreatic body and tail are moderately atrophic. The pancreatic duct is dilated, measuring up to 4 mm. There is thrombus suggested within the superior mesenteric vein on image #180, similar to previous and likely related to previous Whipple procedure. Adrenal glands: Unremarkable. Kidneys: The contrast enhanced kidneys demonstrate mild cortical atrophy and are without hydronephrosis. The kidneys enhance symmetrically. 1.9 cm cyst is seen in the left upper pole. Additional subcentimeter cortical hypodensities also likely represent cysts but are too small for definitive characterization. Abdominal vasculature: The abdominal aorta is normal in course and caliber noting moderate to advanced atherosclerotic calcification. Stomach and bowel: The distal stomach and duodenum are surgically absent consistent with a Whipple procedure. No bowel obstruction is seen. There is an apparent fistulous connection between the distal stomach just above the gastrojejunostomy extends through the ventral abdominal wall seen on image #149. There is also likely a fistulous connection between the transverse colon and the gastrojejunostomy seen on image #146. The appendix is not visualized. Peritoneum: There is a small volume of abdominopelvic ascites, greatest around the liver. No intraperitoneal free air is seen. Lymphadenopathy: None. Pelvic viscera: There are small foci of gas within the bladder lumen, likely related to recent instrumentation. The bladder is otherwise normal as visualized. There are uterine masses, likely resulting fibroids. No adnexal lesion is seen. Skeletal structures: The Skeletal structures are osteopenic. No lytic or blastic lesions are seen. IMPRESSION: 1. There are postoperative changes consistent with a Whipple procedure. 2. 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 3. Pneumobilia suggests patency of the hepaticojejunostomy. 4. There is debris filling the common hepatic duct with surrounding ductal enhancement. This nonspecific and similar appearance to previous, and may be related to previous surgery. Correlate clinically and with laboratory studies for evidence of cholangitis. 5. Again seen is marked heterogeneity of the hepatic parenchyma. This is similar in appearance to 10/11/2017, and could represent the sequelae of a previous infarct/perfusion phenomenon, geographic steatosis, or less likely cholangitis. Again, clinical and laboratory correlation will be essential. 6. There is no definitive evidence of metastatic disease in the abdomen or pelvis. 7. There is a small volume of abdominopelvic ascites, which has increased from 10/11/2017. 8. Splenomegaly. 9. Fibroid uterus. 10. Additional findings as above. Impression Assessment and Plan 72F with know pancreatic cancer presents with 2nd fistula on the abdomen. Admitted for cellulitis. Starting Zosyn. Appreciate wound care recs. Not a surgical candidate per surgeon in [place]. Cellulitis of Abdomen and appearance of 2nd Fistula in setting of Whipples procedure for Pancreatic CA Per ER physician, spoke with pt's surgeon in [place] - not a further surgical candidate, stabilize and arrange for outpatient follow up. 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" Follow up wound cultures, lactate and MRSA nasal swab. Will start on Zosyn, if does not improve broaden to MRSA coverage. Appreciate wound care nurse recommendations - per surgeon in [place], not a surgical candidate, will likely need instructions for taking care of a 2nd chronic fistula. Advised to use an ostomy bag for the drainage. AFib w/ Pacemaker Placement s/p Tachy Roc syndrome Pt did not take her Digoxin or Metoprolol today, will give STAT in the ER. Continue with Digoxin and Metoprolol. H/o recent RLE DVT (~1 mo ago diagnosed) Continue the Lovenox 100mg SQ Daily. DM2 No HBA1C in the chart. Will get one. Continue Lantus 15units QAM GERD: c/w PPI. 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 daughter, good support, from [place], no insurance ( discharge planning eval put in) Diet: DM2 FULL CODE Resuscitation Status VTE Prophylaxis Will order VTE Prophylaxis: Yes Resident Involvement: Resident Care Provided Care Provided: Adult Hospital Medicine Reviewed: Pt Seen/Exam by Me History 72 y/o with h/o pancreatic Ca, s/p whipples with chronic lower nonhealing surgical scar here with drainage from upper part of surgical scar since this am Constitutional: denies: fever Respiratory: negative: short of breath Cardiovascular: denies chest pain General Appearance: no apparent distress Respiratory: lungs clear, no respiratory distress Cardiovascular: regular rate, rhythm Gastrointestinal: normal bowel sounds, soft, other (upper midline surgical scar - draining purulent material. tenderness and erythema around the scar. lower end of the scar with gauze packing) Neurologic/Psychiatric: alert, oriented x 3 Skin Characteristics: warm/dry Assessment/Plan Resident Physician Supervision Note: I independently interviewed and examined the patient and verified the rios history and physical, reviewed labs and image studies, discussed the case with the resident Dr. Glez and agree with the findings and care plan.
[2018-01-26 15:46] VITALS: BP 114/69; TEMP 37.3; BMI 28.2
[2018-01-26] MEDS ORDERED: METOPROLOL TARTRATE 50 MG TAB PO STA (16:00)
[2018-01-26] MEDS ORDERED: DIGOXIN 0.125 MG TAB PO ONE (16:00)
[2018-01-26] MEDS ORDERED: POLYETHYLENE (MIRALAX) 17 GM PACK PO PRN (16:15)
[2018-01-26] MEDS ORDERED: PIPERACILL/TAZOBAC CONSULT ACTIVE PRN (16:15)
[2018-01-26] MEDS ORDERED: MAGNESIUM HYDROXIDE SUSP 30 ML UDC PO PRN (16:15)
[2018-01-26] MEDS ORDERED: ALUMINUM/MAGNESIUM/SIMETH (MAALOX MAX) 30 ML UDC PO PRN (16:15)
[2018-01-26] MEDS ORDERED: ACETAMINOPHEN 325 MG TAB PO PRN (16:15)
[2018-01-26] MEDS ORDERED: ONDANSETRON INJ 2 MG/ML 2 ML VIAL IV PRN (16:15)
[2018-01-26] MEDS ORDERED: CARBOHYDRATES FOR HYPOGLYCEMIA PO PRN (16:30)
[2018-01-26] MEDS ORDERED: GLUCOSE 40% GEL 15 GM TUBE PO PRN (16:30)
[2018-01-26] MEDS ORDERED: IV FLUIDS COMPLETED PRN (16:30)
[2018-01-26] MEDS ORDERED: DEXTROSE 50% 50 ML SYR IV PRN (16:30)
[2018-01-26] MEDS ORDERED: GLUCOSE 10 TABS/TUBE PO PRN (16:30)
[2018-01-26] MEDS ORDERED: GLUCAGON FOR INJ 1 MG VIAL IM PRN (16:30)
[2018-01-26 17:00] VITALS: O2SAT 96
--- NOTE | 2018-01-26 17:43 | EMERGENCY ROOM VISIT NOTE ---
History Report prepared by Yandy: Cynthia Francois Under the Supervision of: Dr. Lg Wilder M.D. First contact with patient: 09:59 Chief Complaint: WOUND DEHISCENCE Stated Complaint: PART OF INCISION IS OPEN History of Present Illness The patient is a 72 year old female who presents to the Emergency Room with complaints of an abdominal wound dehiscence that began 2 days ago. Per daughter , the patient had a Whipple surgery in February of 2017 at [facility] for pancreatic cancer. The patient's daughter states that 3-4 months ago the patient had swelling and green discharge around her incision. 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 Per daughter, the patient went back to [place] and was told that they could not do surgery because the patient had stage 4 cancer. Her daughter states that she packs the open area at the bottom of the patient's incision everyday. Per daughter, the patient now has 2 areas open on her incision, one at the top and one at the bottom. Her daughter states that these open areas have been swollen and red. Per daughter, the patient was sweaty this morning and states that several weeks ago the patient had the chills and vomited twice. Her daughter states that the patient has not been febrile. Per daughter, the patient has been on Bactrim since the surgery to prevent infections. Her daughter states that the patient has atrial fibrillation and has a pacemaker. Per daughter, the patient is on Lovenox injections for a history of a blood clot. Her daughter states that the patient has been eating well. Source of History: family (daughter) Onset: 2 days ago Position: abdomen Quality: other (wound dehiscence) Associated Symptoms: + chills, + diaphoresis, + vomiting, No fevers Review of Systems See HPI for pertinent positives & negatives. A total of 10 systems reviewed and were otherwise negative. Past Medical & Surgical Medical Problems: (1) Atrial fibrillation (2) Fistula (3) History of blood clots (4) HTN (hypertension) (5) Pacemaker (6) Pancreatic cancer Family History Patient reports no known family medical history. Social History Smoking Status: Never Smoker Alcohol Use: none Housing Status: lives with family Occupation Status: retired Current/Historical Medications Scheduled Digoxin (Digoxin), 0.125 MG PO DAILY Enoxaparin (Lovenox), 100 MG SQ DAILY Insulin Glargine (Lantus), 15 SC QAM Metoprolol Tartrate (Lopressor) (Lopressor), 50 MG PO BID Pantoprazole (Protonix), 40 MG PO DAILY Sulfa/Trimethoprim (Bactrim Ds 800MG/160MG), 1 TAB PO BID Allergies Coded Allergies: No Known Allergies (Unverified , 11/27/16) Physical Exam Vital Signs Date Time Temp Pulse Resp B/P (MAP) Pulse Ox O2 Delivery O2 Flow Rate FiO2 01/26/18 17:00 106 18 109/73 96 01/26/18 16:29 100 01/26/18 16:17 36.8 95 20 115/73 95 Room Air 01/26/18 15:46 37.3 18 114/69 Room Air 01/26/18 14:07 91 18 114/69 96 Room Air 01/26/18 12:38 92 18 117/64 96 Room Air 01/26/18 12:02 91 18 116/62 93 Room Air 01/26/18 10:38 96 20 120/63 94 Room Air 01/26/18 09:45 37.3 104 18 90/58 97 Room Air Physical Exam GENERAL: Patient is in no acute distress. HEENT: No acute trauma, normocephalic atraumatic, mucous membranes moist, no nasal congestion, no scleral icterus. NECK: No stridor, no adenopathy, no meningismus, trachea is midline. LUNGS: Clear to auscultation bilaterally, no wheeze, no rhonchi, breath sounds equal. HEART: Irregular rhythm. Mild tachycardia. No murmurs. ABDOMEN: Upper midline vertical abdominal incision. There is some surrounding erythema and the skin around the area is tender to touch. There are 2 openings to the incision. One along the inferior aspect with minimal drainage, one to the superior aspect with significant drainage and it is more tender and erythematous than below. No peritonitis and the abdomen is otherwise soft. EXTREMITIES: No cyanosis or edema, full range of motion of all the joints without pain or difficulty, no signs for acute trauma. NEUROLOGIC: Oriented x 3, no acute motor or sensory deficits, no focal weakness. SKIN: No rash, no jaundice, no diaphoresis. Medical Decision & Procedures ER Provider Diagnostic Interpretation: Radiology results as stated below per my review and radiologist interpretation: CT SCAN OF THE ABDOMEN AND PELVIS WITH IV CONTRAST CLINICAL HISTORY: Generalized abdominal pain. History of a Whipple procedure. Concern for fistula. COMPARISON STUDY: Abdominal CT dated 10/11/2017 and 09/30/2017. TECHNIQUE: Following the IV administration of 94 cc of Optiray 320, CT scan of the abdomen and pelvis is performed from the lung bases to the proximal femora. Images are reviewed in the axial, sagittal, and coronal planes. IV contrast was administered without complication. The patient declined oral contrast. Note that the examination is suboptimal without oral contrast. A dose lowering technique was utilized adhering to the principles of ALARA. The examination is degraded by motion artifact. CT DOSE: 600.84 mGycm FINDINGS: Lung bases: The heart is normal in size and without pericardial effusion. Pacemaker leads are noted. The coronary arteries are densely calcified. The lung bases are clear noting dependent atelectasis. Liver: The contrast-enhanced liver is normal in size and contour. There is markedly heterogeneous attenuation of the hepatic parenchyma, greatest in the segments IV and V this is similar in appearance to previous. Pneumobilia is noted. There is no significant intrahepatic biliary ductal dilatation. The main portal veins are patent. There is soft tissue attenuation material filling the common hepatic duct with ductal enhancement seen on axial image #132. Matted bowel loops in the tiffanie hepatis are consistent with pancreaticojejunostomy and hepaticojejunostomy. Gallbladder: Surgically absent noting clips in the gallbladder fossa. Spleen: The spleen is enlarged, measuring 14.6 cm in length. Pancreas: The pancreatic head is surgically absent. The pancreatic body and tail are moderately atrophic. The pancreatic duct is dilated, measuring up to 4 mm. There is thrombus suggested within the superior mesenteric vein on image #180, similar to previous and likely related to previous Whipple procedure. Adrenal glands: Unremarkable. Kidneys: The contrast enhanced kidneys demonstrate mild cortical atrophy and are without hydronephrosis. The kidneys enhance symmetrically. 1.9 cm cyst is seen in the left upper pole. Additional subcentimeter cortical hypodensities also likely represent cysts but are too small for definitive characterization. Abdominal vasculature: The abdominal aorta is normal in course and caliber noting moderate to advanced atherosclerotic calcification. Stomach and bowel: The distal stomach and duodenum are surgically absent consistent with a Whipple procedure. No bowel obstruction is seen. There is an apparent fistulous connection between the distal stomach just above the gastrojejunostomy extends through the ventral abdominal wall seen on image #149. There is also likely a fistulous connection between the transverse colon and the gastrojejunostomy seen on image #146. The appendix is not visualized. Peritoneum: There is a small volume of abdominopelvic ascites, greatest around the liver. No intraperitoneal free air is seen. Lymphadenopathy: None. Pelvic viscera: There are small foci of gas within the bladder lumen, likely related to recent instrumentation. The bladder is otherwise normal as visualized. There are uterine masses, likely resulting fibroids. No adnexal lesion is seen. Skeletal structures: The Skeletal structures are osteopenic. No lytic or blastic lesions are seen. IMPRESSION: 1. There are postoperative changes consistent with a Whipple procedure. 2. 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 3. Pneumobilia suggests patency of the hepaticojejunostomy. 4. There is debris filling the common hepatic duct with surrounding ductal enhancement. This nonspecific and similar appearance to previous, and may be related to previous surgery. Correlate clinically and with laboratory studies for evidence of cholangitis. 5. Again seen is marked heterogeneity of the hepatic parenchyma. This is similar in appearance to 10/11/2017, and could represent the sequelae of a previous infarct/perfusion phenomenon, geographic steatosis, or less likely cholangitis. Again, clinical and laboratory correlation will be essential. 6. There is no definitive evidence of metastatic disease in the abdomen or pelvis. 7. There is a small volume of abdominopelvic ascites, which has increased from 10/11/2017. 8. Splenomegaly. 9. Fibroid uterus. 10. Additional findings as above. Electronically signed by: Lg Hankins M.D. 01/26/2018 1:08 PM Dictated Date/Time: 01/26/2018 12:46 PM Laboratory Results 01/26/18 10:33 Red Blood Count 3.90, Mean Corpuscular Volume 83.1, Mean Corpuscular Hemoglobin 27.4, Mean Corpuscular Hemoglobin Concent 33.0, Mean Platelet Volume 10.3, Neutrophils (%) (Auto) 82.4, Lymphocytes (%) (Auto) 10.1, Monocytes (%) (Auto) 6.1, Eosinophils (%) (Auto) 0.7, Basophils (%) (Auto) 0.2, Neutrophils # (Auto) 8.66, Lymphocytes # (Auto) 1.06, Monocytes # (Auto) 0.64, Eosinophils # (Auto) 0.07, Basophils # (Auto) 0.02 01/26/18 10:33 Test 01/26/18 10:33 01/26/18 14:06 01/26/18 16:14 White Blood Count 10.50 K/uL (4.8-10.8) Red Blood Count 3.90 M/uL (4.2-5.4) Hemoglobin 10.7 g/dL (12.0-16.0) Hematocrit 32.4 % (37-47) Mean Corpuscular Volume 83.1 fL (80-100) Mean Corpuscular Hemoglobin 27.4 pg (25-34) Mean Corpuscular Hemoglobin Concent 33.0 g/dl (32-36) Platelet Count 277 K/uL (130-400) Mean Platelet Volume 10.3 fL (7.4-10.4) Neutrophils (%) (Auto) 82.4 % Lymphocytes (%) (Auto) 10.1 % Monocytes (%) (Auto) 6.1 % Eosinophils (%) (Auto) 0.7 % Basophils (%) (Auto) 0.2 % Neutrophils # (Auto) 8.66 K/uL (1.4-6.5) Lymphocytes # (Auto) 1.06 K/uL (1.2-3.4) Monocytes # (Auto) 0.64 K/uL (0.11-0.59) Eosinophils # (Auto) 0.07 K/uL (0-0.5) Basophils # (Auto) 0.02 K/uL (0-0.2) RDW Standard Deviation 48.9 fL (36.4-46.3) RDW Coefficient of Variation 16.2 % (11.5-14.5) Immature Granulocyte % (Auto) 0.5 % Immature Granulocyte # (Auto) 0.05 K/uL (0.00-0.02) Prothrombin Time 11.8 SECONDS (9.0-12.0) Prothromb Time International Ratio 1.1 (0.9-1.1) Activated Partial Thromboplast Time 28.3 SECONDS (21.0-31.0) Partial Thromboplastin Ratio 1.1 Anion Gap 8.0 mmol/L (3-11) Est Creatinine Clear Calc Drug Dose 72.4 ml/min Estimated GFR () 104.1 Estimated GFR (Non- 89.8 BUN/Creatinine Ratio 16.7 (10-20) Calcium Level 8.6 mg/dl (8.5-10.1) Magnesium Level 1.7 mg/dl (1.8-2.4) Total Bilirubin 0.8 mg/dl (0.2-1) Aspartate Amino Transf (AST/SGOT) 11 U/L (15-37) Alanine Aminotransferase (ALT/SGPT) 11 U/L (12-78) Alkaline Phosphatase 89 U/L (45-117) Total Protein 6.2 gm/dl (6.4-8.2) Albumin 2.7 gm/dl (3.4-5.0) Globulin 3.5 gm/dl (2.5-4.0) Albumin/Globulin Ratio 0.8 (0.9-2) Lipase 360 U/L (73-393) Beta-Hydroxybutyric Acid 2.81 mg/dL (0.2-2.81) Digoxin Level 0.4 ng/ml (0.8-2.0) Bedside Glucose 241 mg/dl (70-90) Laboratory results reviewed by me. Medications Administered Medications (Trade) Dose Ordered Sig/Jojo Route Start Time Stop Time Status Last Admin Dose Admin Ondansetron HCl (Zofran Inj) 4 mg NOW STAT IV 01/26/18 10:07 01/26/18 10:11 DC 01/26/18 10:39 4 MG Sodium Chloride 1,000 ml @ 999 mls/hr Q1H1M STAT IV 01/26/18 10:07 01/26/18 11:07 DC 01/26/18 10:39 999 MLS/HR Piperacillin Sod/ Tazobactam Sod (Zosyn Iv) 4.5 gm NOW STAT IV 01/26/18 10:07 01/26/18 10:11 DC 01/26/18 10:39 4.5 GM Insulin Human Regular (novoLIN-R U-100 PER UNIT) 8 units NOW STAT IV 01/26/18 11:09 01/26/18 11:10 DC 01/26/18 11:58 8 UNITS Magnesium Sulfate (Magnesium Sulfate 1gm / D5W) 1 gm NOW STAT IV 01/26/18 11:09 01/26/18 11:10 DC 01/26/18 11:54 1 GM Insulin Human Regular (novoLIN-R U-100 PER UNIT) 8 units NOW STAT IV 01/26/18 12:58 01/26/18 12:59 DC 01/26/18 13:07 8 UNITS Metoprolol Tartrate (Lopressor Tab) 50 mg NOW STAT PO 01/26/18 16:00 01/26/18 16:02 DC 01/26/18 16:29 50 MG Digoxin (Lanoxin Tab) 0.125 mg NOW ONCE PO 01/26/18 16:00 01/26/18 16:02 DC 01/26/18 16:29 0.125 MG ECG Per My Interpretation Indication: other (atrial fibrillation ) Rate (beats per minute): 103 Rhythm: atrial fibrillation Findings: nonspecific-ST abn (diffusely), other (no PVCs, no ST elevation) ED Course 1002: The patient was evaluated in room B3B. A complete history and physical exam was performed. 1007: Ordered Zosyn Iv 4.5 mg IV, Sodium Chloride 1000 ml @ 999 mls/hr IV, and Zofran Inj 4 mg IV. 1109: Ordered Magnesium Sulfate 1 gm IV and Insulin Human Regular 8 units IV. 1258: Ordered Insulin Human Regular 8 units IV. 1359: Discussed the patient's case with Dr. Pickering[facility]. Dr. Pickering said that there is not a lot that they can do and that the patient should stay here if she needs to. 1415: I spoke with the patient and her daughter. They are okay with the patient staying here. 1432: Upon reexamination the patient is resting. I discussed results and treatment plan with the patient. Her daughter verbalizes agreement and understanding. I spoke with Dr. Pearson of the [facility]. We discussed the patient's results and findings. The patient will be evaluated by Dr. Pearson for further management. 1458: I updated the patient and her daughter. They are aware that the doctor will come to see the patient and they are also aware that they will probably stay here instead of going to [place]. Medical Decision The patient is a 72 year old female who presents to the ED with complaints of a wound dehiscence. Differential diagnoses considered include fistula, abscess, cellulitis, bowel perforation, electrolyte imbalance, anemia, dehydration, and wound infection. There is no leukocytosis, a mild anemia is present. Renal panel testing shows a high sugar at over 300, magnesium slightly low at 1.7, no kidney failure. No hepatitis or pancreatitis. EKG shows A. fib, no acute ischemic change. Digoxin level is not toxic. There is no coagulopathy. Abdominal and pelvis CT shows evidence for increased fistula changes. No bowel obstruction, no abscess noted. On exam, the patient was not febrile. There was some erythema around the superior aspect of the surgical incision. There was tenderness to touch and there was significant superior incision drainage. The patient received IV saline, she received IV Zosyn as antibiotic coverage. Because of the mildly low magnesium, she received a dose of IV magnesium. She received IV insulin a few times to help control the blood pressure. The patient is resting comfortably. I do think she is stable. I spoke with her surgical group at [place]. The patient can stay here at this hospital, there is no need for emergent surgical intervention. I spoke to case management and the family. The on-call hospitalist was consulted. Patient appears to have a new fistulous tract. She also has a cellulitis in the area of the new fistula, a hospital stay is warranted. Medication Reconcilliation Current Medication List: was personally reviewed by me Blood Pressure Screening Patient's blood pressure: Normal blood pressure Consults Time Called: 1327 Consulting Physician: Dr. Airam Hughes Surgery Returned Call: [phone] Discussed the patient's case with Dr. Messina Surgery. Dr. Pickering said that there is not a lot that they can do and that the patient should stay here if she needs to. Additional Consults: Time Called: 1415 Consulted Physician: Dr. James Isbell Returned Call: [phone] Additional Comments: Discussed the patient's case. The patient will be evaluated for further management. Impression Primary Impression: Abdominal wall cellulitis Additional Impressions: Fistula status post whipple procedure Scribe Attestation The scribe's documentation has been prepared under my direction and personally reviewed by me in its entirety. I confirm that the note above accurately reflects all work, treatment, procedures, and medical decision making performed by me. Departure Information Dispostion Being Evaluated By Hospitalist Referrals Michael Maxwell MD (PCP) Patient Instructions My [facility] Problem Qualifiers
[2018-01-26] MEDS: PIPERACILL/TAZOBAC IV 3.375 GM in DEXTROSE 5% 100ML 100 ML IV SCH (18:35)
[2018-01-26 19:10] VITALS: BP 106/60; PULSE 97; TEMP 37; O2SAT 94
[2018-01-26] MEDS ORDERED: ENOXAPARIN 100 MG/1ML SYR SQ SCH (21:00)
[2018-01-26 21:43] VITALS: BP 99/65; PULSE 98
[2018-01-26] MEDS: METOPROLOL TARTRATE 50 MG TAB PO SCH (21:45)
[2018-01-26 22:58] VITALS: BP 97/65; PULSE 95; TEMP 36.7; O2SAT 96
[2018-01-27] MEDS: PIPERACILL/TAZOBAC IV 3.375 GM in DEXTROSE 5% 100ML 100 ML IV SCH ×2 (01:44→09:53)
[2018-01-27 06:10] LABS: HEMOGLOBIN A1C 12.1 % (4.5-5.6)
[2018-01-27 07:20] VITALS: BP 102/64; PULSE 95; TEMP 36.6; O2SAT 95
[2018-01-27] MEDS: METOPROLOL TARTRATE 50 MG TAB PO SCH (08:05)
[2018-01-27] MEDS ORDERED: PANTOprazole SOD 40 MG TAB PO SCH (09:00)
[2018-01-27] MEDS ORDERED: INSULIN GLARGINE SOLOSTAR 100 UNITS/ML 3 ML PEN SC SCH (09:00)
[2018-01-27] MEDS ORDERED: CEPH500C2 PO (11:29)
--- NOTE | 2018-01-27 11:51 | Discharge Instructions ---
Discharge Instructions Date of Service Jan 27, 2018. Admission Reason for Admission: Fistula Discharge Discharge Diagnosis / Problem: Cellulitis Discharge Goals Goal(s): Decrease discomfort, Improve function, Increase independence, Improve disease control, Improve nutritional status, Learn about illness Activity Recommendations Activity Limitations: per Instructions/Follow-up section . Instructions / Follow-Up Instructions / Follow-Up You have been found to have a new fistula draining site on your abdomen. Our wound care nurse will provide recommendations on discharge for taking care of your wound. Please follow these recommendations. We will be giving you an antibiotic for your Cellulitis. This antibiotic has is called CashCashPinoy and will be sent to your pharmacy. Please take this antibiotic as prescribed. Please keep your regular surgery follow up in [place]. While in the hospital your sugars were found to be elevated. We recommend close glucose monitoring and starting 5 units of Novolog (short acting) insulin with meals in addition to 15units of Insulin Lantus (long acting). If you skip a meal you may skin the Novolog insulin A appointment with [facility] will be made for you within one week of discharge. We will also try to provide follow up at [facility] but we are unsure if this is possibly due to your insurance status. Should [facility] contact you with an appointment please keep it. It might be worth reaching out to [facility] if you do not directly hear from them. Current Hospital Diet Patient's current hospital diet: Diabetes Type 2 Diet Discharge Diet Recommended Diet: Diabetes Type 2 Diet Pending Studies Studies pending at discharge: yes List of pending studies: Final Blood Cultures Final Wound Cultures and Sensitivities (growing gram positive cocci) Laboratory Results Hemoglobin A1c Test 01/26/18 10:33 Range/Units Estimated Average Glucose 301 mg/dl Hemoglobin A1c 12.1 H 4.5-5.6 % Medical Emergencies . Who to Call and When: Medical Emergencies: If at any time you feel your situation is an emergency, please call 911 immediately. . Non-Emergent Contact Non-Emergency issues call your: Primary Care Provider, Surgeon . . "Provider Documentation" section prepared by Junior Mcneal. . Resident Involvement: Resident Care Provided Care Provided: Adult Hospital Medicine
[2018-01-27] MEDS ORDERED: NVLGI/PEN SQ (11:54)
--- NOTE | 2018-01-27 12:10 | Discharge Summary ---
Discharge Summary Date of Service Jan 27, 2018. Discharge Summary Admission Date: Jan 26, 2018 at 16:11 Discharge Date: Jan 27, 2018 Discharge Disposition: Home Principal Diagnosis: Cellulitis Problems/Secondary Diagnoses: Type 2 Diabetes Procedures: CT SCAN OF THE ABDOMEN AND PELVIS WITH IV CONTRAST IMPRESSION: 1. There are postoperative changes consistent with a Whipple procedure. 2. 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 3. Pneumobilia suggests patency of the hepaticojejunostomy. 4. There is debris filling the common hepatic duct with surrounding ductal enhancement. This nonspecific and similar appearance to previous, and may be related to previous surgery. Correlate clinically and with laboratory studies for evidence of cholangitis. 5. Again seen is marked heterogeneity of the hepatic parenchyma. This is similar in appearance to 10/11/2017, and could represent the sequelae of a previous infarct/perfusion phenomenon, geographic steatosis, or less likely cholangitis. Again, clinical and laboratory correlation will be essential. 6. There is no definitive evidence of metastatic disease in the abdomen or pelvis. 7. There is a small volume of abdominopelvic ascites, which has increased from 10/11/2017. 8. Splenomegaly. 9. Fibroid uterus. 10. Additional findings as above. Medication Reconciliation New Medications: Cephalexin Monohydrate (Keflex) 500 Mg Cap 500 MG PO QID for 7 Days, #28 CAP Insulin Aspart (Novolog Flexpen) 100 Units/Ml Inj 5 UNITS SQ AC for 30 Days, #1 PEN 3 Refills Continued Medications: Digoxin (Digoxin) 0.125 Mg Tab 0.125 MG PO DAILY Enoxaparin (Lovenox) 120 Mg/0.8 Ml Inj 100 MG SQ DAILY Insulin Glargine (Lantus) 100 Unit/Ml Inj 15 SC QAM, VIAL Metoprolol Tartrate (Lopressor) (Lopressor) 50 Mg Tab 50 MG PO BID, TAB Pantoprazole (Protonix) 40 Mg Tab 40 MG PO DAILY, TAB Discontinued Medications: Sulfa/Trimethoprim (Bactrim Ds 800MG/160MG) Tab 1 TAB PO BID, TAB INTERMEDIATE ANTIBIOTIC , TAKE TWICE DAILY Discharge Exam Subjective Pt was seen and examined at bedside with daughter. Pt reports doing well. Explained the HBA1C findings. Pt reports improvement in the erythema surrounding the fistula site. Constitutional: + weight loss, No fever, No chills ENT: No hearing loss Respiratory: No cough, No sputum, No shortness of breath Abdomen: No pain, No nausea, No vomiting, No diarrhea, No constipation Musculoskeletal: No joint pain Genitourinary - Female: No dysuria Integumentary: No rash Physical Exam General Appearance: WD/WN, no apparent distress Head: normocephalic, atraumatic Eyes: normal inspection, PERRL, EOMI ENT: normal ENT inspection Neck: supple, no adenopathy Respiratory/Chest: chest non-tender, lungs clear, normal breath sounds, no respiratory distress, no accessory muscle use Cardiovascular: no edema, no gallop, no JVD, no murmur, + irregularly irregular , + pertinent finding (pacemaker subcutaneous) Abdomen/GI: non tender, soft, no pulsatile mass, + pertinent finding (two open fistulas in the abdomen which express purulent non foul smelling material. Erythema from previous day is improved if not completely resolved ) Back: normal inspection, no CVA tenderness, no muscle spasm, normal range of motion Extremities/Musculoskelatal: normal inspection, normal capillary refill, no pedal edema, normal range of motion, + pertinent finding (R calf is larger than left, palpation deferred to know previous DVT - do not want to embolize any dissolving clot) Neurologic/Psych: appeals examiner II-XII nml as tested, no motor/sensory deficits, alert, normal mood/affect, normal reflexes, oriented x 3 (Persian Speaking) Hospital Course 72F with known pancreatic cancer presents with 2nd fistula on the abdomen. Admitted for cellulitis. Not a surgical candidate per surgeon in [place]. Starting Zosyn and discharged on Keflex once Wound cultures came back with Gram Positive Cocci (sensitivities pending). MRSA nasal negative. Also discharged with new wound care recommendations. Cellulitis of Abdomen and appearance of 2nd Fistula in setting of Whipples procedure for Pancreatic CA Per ER physician, spoke with pt's surgeon in [place] - not a further surgical candidate, stabilize and arrange for outpatient surgical follow up. 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 " MRSA nasal swab negative. Discharged on 500mg QID Keflex + wound care recommendations. Final sensitivities pending. Wound will heal fast with better blood sugar controls. DM2 HBA1C is 12.1, pt is only getting 15 units of Lantus in the AM. After discussing with pharmacist, will discharge on 15 units QAM of Lantus and 5units AC Novolog. AFib w/ Pacemaker Placement s/p Tachy Orc syndrome Continue with Digoxin and Metoprolol on DC. H/o recent RLE DVT (~1 mo ago diagnosed) Continue the Lovenox 100mg SQ Daily. GERD: c/w PPI. Patient has no health insurance and will possibly follow up on discharge with [facility] Total Time Spent: Greater than 30 minutes (44min) This includes examination of the patient, discharge planning, medication reconciliation, and communication with other providers. Discharge Instructions Please refer to the electronic Patient Visit Report (Discharge Instructions) for additional information. Follow-Up PCP in one week (out of pocket) and [facility] 2 months afterwards. Additional Copies To Michael Maxwell MD Resident Involvement: Resident Care Provided Care Provided: Adult Hospital Medicine Reviewed: Pt Seen/Exam by Me History pain in abdomen improved Constitutional: denies: fever General Appearance: no apparent distress Respiratory: lungs clear, no respiratory distress Cardiovascular: regular rate, rhythm Gastrointestinal: normal bowel sounds, soft, other (upper midline abdomen surgical scar - upper part with purulent drainage. less erythema and swelling) Neurologic/Psychiatric: alert Skin Characteristics: warm/dry Assessment/Plan Resident Physician Supervision Note: I independently interviewed and examined the patient and verified the rios history and physical, reviewed labs and image studies, discussed the case with the resident Dr. Glez and agree with the findings and care plan. Time spent in discharge 40min
[2018-01-27 13:01] VITALS: BP 102/64; PULSE 95; TEMP 36.6; O2SAT 95
[2018-01-27 14:00] VITALS: Ht 154.9 cm; Wt 67.7 kg
[2018-01-27] MEDS ORDERED: DIGOXIN 0.125 MG TAB PO SCH (16:00)
== END 2018-01-27 14:25 | disposition home or self-care (01) ==
LOC: C.EDB 09:37 → C.MS2W 16:11 → EDBEDREQ 16:36 → ENRESERV 16:50
PROVIDERS: ADMIT Family Medicine; ATTEND Family Medicine
DX: L03.90 Cellulitis, unspecified (principal); E11.9 Type 2 diabetes mellitus without complications; C25.9 Malignant neoplasm of pancreas, unspecified; I48.91 Unspecified atrial fibrillation; Z86.718 Personal history of other venous thrombosis and embolism; Z95.0 Presence of cardiac pacemaker; I10 Essential (primary) hypertension; I49.5 Sick sinus syndrome; R00.0 Tachycardia, unspecified; Z79.4 Long term (current) use of insulin; Z79.899 Other long term (current) drug therapy

== ENCOUNTER 2018-08-21 20:35 | Inpatient (IN) ==
[2018-08-21] MEDS ORDERED: SODIUM CHLORIDE 0.9% 1000ML 1,000 ML IV ONE (20:50)
[2018-08-21] MEDS ORDERED: ONDANSETRON INJ 2 MG/ML 2 ML VIAL IV STA (20:50)
[2018-08-21] MEDS ORDERED: dilTIAZem HCl 125 MG in DEXTROSE 5% 100 ML IV STA (20:50)
[2018-08-21] MEDS ORDERED: MoRPHine SULFATE 2 MG/ML CARP IV PRN (20:50)
--- NOTE | 2018-08-21 21:03 | Emergency Department Note ---
Entered by Amberly Herrera acting as a scribe for Lg Wilder MD History of Present Illness General Chief complaint: Vomiting Stated complaint: VOMITING, ABD PAIN, CONSTIPATION Time Seen by Provider: 08/21/18 20:43 Source: patient and family Mode of arrival: wheelchair Limitations: language barrier History of Present Illness Onset (ago): day(s) 1 Location: abdomen Radiation: non-radiation Pain Consistency: + constant Maximum Pain Intensity: 7 Current Pain Intensity: 7 Relieved By: + none Exacerbated By: + none Associated symptoms: + nausea/vomiting and + other (+back pain, -diarrhea) Treatments prior to arrival: none The patient is a 73 year old female who presents to the Emergency Room with complaints of abdominal pain. She rates her discomfort as a 7/10 in severity. Her daughter reports she has a history of metastatic pancreatic cancer to the liver and has undergone a Whipple procedure. The cancer is now stage IV and the patient is no longer receiving treatment. For the past few weeks, the patient has complained of abdominal pain, back pain and vomiting. This morning, the patient started vomiting again and complained of feeling constipated. Her daughter believes she had a bowel movement yesterday. She has not experienced diarrhea. The patient has also complained of pain around her surgical site. She has a history of atrial fibrillation and has a pacemaker. She does not take daily blood thinners. Home Medications Home Medications Medication Instructions Recorded Confirmed Type digoxin 0.125 mg PO DAILY 08/21/18 08/21/18 History hydrocodone-acetaminophen 1 tab PO UD PRN 08/21/18 08/21/18 History metoprolol tartrate 50 mg PO BID 08/21/18 08/21/18 History pantoprazole 40 mg PO DAILY 08/21/18 08/21/18 History Allergies Allergy/AdvReac Type Severity Reaction Status Date / Time No Known Allergies Allergy Unverified 08/21/18 20:53 Past Med/Surg History Medical History DVT (deep venous thrombosis) Atrial fibrillation Social History Feels Safe at Home: Yes Smoking Status: Never smoker Communication Tools: Other Review of Systems See HPI for pertinent positives & negatives. and A total of 10 systems reviewed and were otherwise negative Physical Exam Vital Signs Vital Signs - 24 hr 08/21/18 20:36 08/21/18 20:47 08/21/18 20:52 Temperature 37.1 C Temperature Source Oral Sepsis Recent Fever Within 48 Hours No Sepsis New/Unexplained Change in Mental Status No Sepsis Action Taken by Nursing No Action Required Pulse Rate 179 H 174 H 179 H Pulse Rate from SpO2 Sensor 168 H Pulse Rhythm Irregular Irregular Respiratory Rate 20 21 20 Blood Pressure 85/57 L 132/76 Blood Pressure Mean 66 94 Pulse Oximetry 97 97 97 Oxygen Delivery Method Room Air Room Air 08/21/18 22:11 08/21/18 22:31 08/21/18 22:58 Temperature Temperature Source Sepsis Recent Fever Within 48 Hours Sepsis New/Unexplained Change in Mental Status Sepsis Action Taken by Nursing Pulse Rate 170 H 168 H 151 H Pulse Rate from SpO2 Sensor 167 H 167 H 131 H Pulse Rhythm Respiratory Rate 25 H 19 18 Blood Pressure 112/80 89/69 L 102/79 Blood Pressure Mean 90 75 86 Pulse Oximetry 94 94 87 L Oxygen Delivery Method 08/21/18 23:30 Temperature Temperature Source Sepsis Recent Fever Within 48 Hours Sepsis New/Unexplained Change in Mental Status Sepsis Action Taken by Nursing Pulse Rate 127 H Pulse Rate from SpO2 Sensor 131 H Pulse Rhythm Respiratory Rate 15 Blood Pressure 117/71 Blood Pressure Mean 86 Pulse Oximetry 96 Oxygen Delivery Method GENERAL: Patient is in moderate distress secondary to pain. HEENT: No acute trauma, normocephalic atraumatic, mucous membranes dry, no nasal congestion, no scleral icterus. NECK: No stridor, no adenopathy, no meningismus, trachea is midline. LUNGS: Clear to auscultation bilaterally, no wheeze, no rhonchi, breath sounds equal. Increased respiratory rate. HEART: Tachycardic and irregular, no murmurs. ABDOMEN: Soft, diffusely mildly tender, somewhat distended, firm mass like lesion to mid epigastrium, seems fairly superficial, bowel sounds positive, no hernias, no peritonitis. EXTREMITIES: No cyanosis or edema, full range of motion of all the joints without pain or difficulty, no signs for acute trauma. NEUROLOGIC: Oriented x 3, no acute motor or sensory deficits, no focal weakness. SKIN: No rash, no jaundice, no diaphoresis. Course 2044: Past medical records reviewed. The patient was evaluated in room B7, and a complete history and physical examination were performed. 2235: I reevaluated the patient. She is resting comfortably. I discussed her results and my recommendation she remain in the hospital for further evaluation and management and her family verbalized complete understanding and agreement. 2240: I discussed the patients [facility] The patient will be further evaluated. Consultations Consultation #1: I discussed the patients case with Dr. Wilkerson [facility]. The patient will be further evaluated. Time: 22:40 Administered Medications Albumin Human (Albumin 25%) 50 mls @ 50 mls/hr IV Q1H AL Stop: 08/22/18 01:44 Last Admin: 08/21/18 23:54 Dose: 50 mls/hr Morphine Sulfate (Morphine Sulfate) 2 mg IV Q30M PRN PRN Reason: Pain Stop: 09/04/18 20:49 Last Admin: 08/21/18 21:42 Dose: 2 mg Discontinued Medications Digoxin (Lanoxin) 250 mcg IV ONE ONE Stop: 08/21/18 22:28 Last Admin: 08/21/18 22:58 Dose: 250 mcg Diltiazem HCl 125 mg/ Dextrose 125 mls @ 0 mls/hr IV .Q0M STA; Protocol Stop: 08/21/18 20:51 Last Admin: 08/21/18 21:43 Dose: 5 mg/hr, 5 mls/hr Sodium Chloride (Nss 1000ml) 1,000 mls @ 999 mls/hr IV .Q1H1M ONE Stop: 08/21/18 21:50 Last Infusion: 08/21/18 22:45 Dose: 0 mls/hr Admin: 08/21/18 21:42 Dose: 999 mls/hr Sodium Chloride (Nss 1000ml) 500 mls @ 999 mls/hr IV .Q31M ONE Stop: 08/21/18 23:00 Last Infusion: 08/22/18 00:03 Dose: 0 mls/hr Admin: 08/21/18 22:58 Dose: 999 mls/hr Ondansetron HCl (Zofran) 4 mg IV NOW STA Stop: 08/21/18 20:51 Last Admin: 08/21/18 21:42 Dose: 4 mg Medical Decision Making Differential Diagnosis The differential diagnoses considered include: dehydration, electrolyte imbalance, bowel obstruction, viral illness, renal or liver failure, UTI, CT, rapid atrial fibrillation and pneumonia. Medical Records Attestation: I reviewed the patient's medical records. Home Medications Current Medication List: was personally reviewed by me Laboratory Data Attestation: I reviewed the patient's lab results. Result diagrams: 08/21/18 21:30 08/21/18 21:30 Lab Results 08/21/18 08/21/18 08/21/18 Range/Units 21:30 21:30 21:30 WBC 14.06 H (4.8-10.8) K/uL RBC 4.16 L (4.2-5.4) M/uL Hgb 11.0 L (12.0-16.0) g/dL Hct 33.9 L (37-47) % MCV 81.5 (80-100) fL MCH 26.4 (25-34) pg MCHC 32.4 (32-36) g/dL RDW Std Deviation 52.8 H (36.4-46.3) fL RDW Coeff of Jose 17.7 H (11.5-14.5) % Plt Count 391 (130-400) K/uL MPV 9.6 (7.4-10.4) fL Immature Gran % (Auto) 0.3 % Neut % (Auto) 80.5 % Lymph % (Auto) 10.2 % [place] % (Auto) 8.8 % Eos % (Auto) 0.1 % Baso % (Auto) 0.1 % Immature Gran # (Auto) 0.04 H (0.00-0.02) K/uL Neut # (Auto) 11.31 H (1.4-6.5) K/uL Lymph # (Auto) 1.44 (1.2-3.4) K/uL [place] # (Auto) 1.24 H (0.11-0.59) K/uL Eos # (Auto) 0.02 (0-0.5) K/uL Baso # (Auto) 0.01 (0-0.2) K/uL Sodium (136-145) mmol/L Potassium (3.5-5.1) mmol/L Chloride (98-107) mmol/L Carbon Dioxide (21-32) mmol/L Anion Gap (3-11) BUN (7-18) mg/dl Creatinine (0.6-1.2) mg/dl Est Cr Clr Drug Dosing Est GFR ( Amer) Est GFR (Non-Af Amer) BUN/Creatinine Ratio (10-20) Glucose (70-99) mg/dl Lactate (0.4-2.0) mmol/L Calcium (8.5-10.1) mg/dl Magnesium 1.8 (1.8-2.4) mg/dl Total Bilirubin (0.2-1) mg/dl AST (15-37) U/L ALT (12-78) U/L Alkaline Phosphatase (45-117) U/L Troponin I < 0.015 (0-0.045) ng/ml Total Protein (6.4-8.2) gm/dl Albumin (3.4-5.0) gm/dl Globulin (2.5-4.0) gm/dl Albumin/Globulin Ratio (0.9-2) Lipase (73-393) U/L Urine Color Urine Appearance (Clear) Urine pH (4.5-7.5) Ur Specific [place] (1.000-1.030) Urine Protein (Negative) Urine Glucose (UA) (Negative) Urine Ketones (Negative) Urine Blood (Negative) Urine Nitrite (Negative) Urine Bilirubin (Negative) Urine Urobilinogen (Negative) Ur Leukocyte Esterase (Negative) Urine WBC (Auto) (0-5) /hpf Urine RBC (Auto) (0-4) /hpf U Hyaline Cast (Auto) (0-5) /lpf U Epithel Cells (Auto) (0-5) /lpf Urine Bacteria (Auto) (Negative) Digoxin 0.7 L (0.8-2.0) ng/ml 08/21/18 08/21/18 08/21/18 Range/Units 21:30 21:30 23:15 WBC (4.8-10.8) K/uL RBC (4.2-5.4) M/uL Hgb (12.0-16.0) g/dL Hct (37-47) % MCV (80-100) fL MCH (25-34) pg MCHC (32-36) g/dL RDW Std Deviation (36.4-46.3) fL RDW Coeff of Jose (11.5-14.5) % Plt Count (130-400) K/uL MPV (7.4-10.4) fL Immature Gran % (Auto) % Neut % (Auto) % Lymph % (Auto) % [place] % (Auto) % Eos % (Auto) % Baso % (Auto) % Immature Gran # (Auto) (0.00-0.02) K/uL Neut # (Auto) (1.4-6.5) K/uL Lymph # (Auto) (1.2-3.4) K/uL [place] # (Auto) (0.11-0.59) K/uL Eos # (Auto) (0-0.5) K/uL Baso # (Auto) (0-0.2) K/uL Sodium 137 (136-145) mmol/L Potassium 3.8 (3.5-5.1) mmol/L Chloride 104 (98-107) mmol/L Carbon Dioxide 26 (21-32) mmol/L Anion Gap 7.0 (3-11) BUN 16 (7-18) mg/dl Creatinine 0.75 (0.6-1.2) mg/dl Est Cr Clr Drug Dosing Not Reportable Est GFR ( Amer) 90.4 Est GFR (Non-Af Amer) 78.0 BUN/Creatinine Ratio 21.8 H (10-20) Glucose 66 L (70-99) mg/dl Lactate 2.0 (0.4-2.0) mmol/L Calcium 8.5 (8.5-10.1) mg/dl Magnesium (1.8-2.4) mg/dl Total Bilirubin 0.9 (0.2-1) mg/dl AST 18 (15-37) U/L ALT 11 L (12-78) U/L Alkaline Phosphatase 169 H (45-117) U/L Troponin I (0-0.045) ng/ml Total Protein 6.3 L (6.4-8.2) gm/dl Albumin 2.4 L (3.4-5.0) gm/dl Globulin 3.9 (2.5-4.0) gm/dl Albumin/Globulin Ratio 0.6 L (0.9-2) Lipase 50 L (73-393) U/L Urine Color Dark Yellow Urine Appearance Clear (Clear) Urine pH 5.5 (4.5-7.5) Ur Specific [place] 1.030 (1.000-1.030) Urine Protein Trace H (Negative) Urine Glucose (UA) Negative (Negative) Urine Ketones Trace H (Negative) Urine Blood Negative (Negative) Urine Nitrite Positive H (Negative) Urine Bilirubin 1+ H (Negative) Urine Urobilinogen Negative (Negative) Ur Leukocyte Esterase Trace H (Negative) Urine WBC (Auto) 1-5 (0-5) /hpf Urine RBC (Auto) 0-4 (0-4) /hpf U Hyaline Cast (Auto) 5-10 H (0-5) /lpf U Epithel Cells (Auto) >30 H (0-5) /lpf Urine Bacteria (Auto) Negative (Negative) Digoxin (0.8-2.0) ng/ml Imaging Data Radiologist's Impression: Radiology results as stated below per my review and the radiologist's interpretation: XR chest 1V portable CLINICAL HISTORY: 73 years-old Female presenting with sob, history of pancreatic cancer. TECHNIQUE: Portable upright AP view of the chest was obtained. COMPARISON: 06/05/[address] from 09/30/2017. FINDINGS: Left subclavian pacer with leads to the right atrium and right ventricular apex. Right subclavian Mediport terminates in the lower SVC. Atherosclerosis of aortic arch. Cardiac silhouette mildly enlarged. No focal opacity. No large effusion or pneumothorax. Exaggerated thoracic kyphosis suggested. Osseous structures normal. Upper abdomen normal. IMPRESSION: 1. No acute cardiopulmonary disease. Electronically signed by: Cedric Byers M.D. 08/21/2018 9:[address] abd pelvis wo con CLINICAL HISTORY: 73 years-old Female presenting with cancer, poss obstruction, history of Whipple procedure. TECHNIQUE: Multidetector CT of the abdomen and pelvis was performed without the use of intravenous contrast. IV contrast: None. One or more dose lowering techniques were used consistent with the principles of ALARA (as low as reasonably achievable), including automatic exposure control, mA or kV adjustment to individual patient size, and/or use of iterative reconstruction. COMPARISON: . CT DOSE (mGy.cm): The estimated cumulative dose is 360.04 mGy.cm. FINDINGS: Supervisor Seaming topogram: Pacer leads to the right atrium and right ventricular apex. Surgical clips project over the right upper quadrant. Lung bases: Multichamber enlargement of the heart. Trace left pleural effusion. Extensive bibasilar groundglass opacities with mosaic attenuation and interlobular septal thickening. Pulmonary arteries are mildly enlarged relative to adjacent bronchi. Liver: Interval atrophy of liver parenchyma with multifocal extremely low density regions. This appearance is notably more pronounced and widespread than on prior exam. Biliary: Pneumobilia as on prior exam with the hepaticojejunostomy poorly delineated. Gallbladder surgically absent. Pancreas: Postsurgical changes of Whipple procedure with the pancreaticojejunostomy poorly delineated. Atrophy of the residual pancreatic tail. Spleen: Normal noncontrast appearance. Adrenal glands: Normal noncontrast appearance. Kidneys and ureters: Normal noncontrast appearance. No nephrolithiasis. No hydronephrosis. Normal ureters. Bladder: Incompletely evaluated secondary to underdistention. Pelvic organs: Normal noncontrast appearance. Bowel: The transverse colon is somewhat featureless with mild diffuse wall thickening. The appendix is poorly visualized. No bowel obstruction. Postsurgical changes of distal gastrectomy and duodenectomy. Patent gastrojejunostomy. 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 At the very least, granulation tissue remains at this site (series 3 image 149). Peritoneal cavity: Interval development of moderate volume ascites, which is simple appearing. No gross evidence of soft tissue nodularity. The omentum is diffusely infiltrated, nonspecific. The mesentery is also diffusely infiltrated. Fluid noted between the leaves of the mesentery. Lymph nodes: No gross lymphadenopathy allowing for noncontrast technique. Vasculature: Atherosclerosis of the normal caliber abdominal aorta. Slight prominence at the site of postsurgical change at the level of the superior mesenteric vein (series 3 image 185). This may be occluded. Abdominal wall: Body wall edema. Track at the midline ventral abdomen emanating from the prior fistula with the stomach. Musculoskeletal: Degenerative changes of the spine. IMPRESSION: 1. Interval development of significant ascites. The presence of ascites presumably relates to development of portal hypertension. 2. Increased prominence at the site of postsurgical change at the level of the superior mesenteric vein raises concern for thrombus, which may be acute or chronic, or, less likely, recurrent disease. Based on the patient's body habitus and the depth of the abnormality in the posterior abdomen, this would likely be poorly demonstrated with ultrasound and preferably evaluated with intravenous contrast-enhanced CT. 3. Apparent interval hepatic parenchymal atrophy with geographic regions of severe hypoattenuation. This may represent progression of heterogeneous severe hepatic steatosis. The primary differential consideration is patchy areas of liver necrosis, considered less likely. 4. Redemonstration of postsurgical changes of Whipple procedure. These are not well demonstrated without intravenous contrast. No bowel obstruction. 5. 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 6. Volume overload with body wall edema and congestive change in the lung bases in addition to ascites. Electronically signed by: Cedric Byers M.D. 08/21/2018 10:25 PM ECG Data Attestation: I personally reviewed and interpreted this ECG as follows: Indication: abdominal pain Rate (beats per minute): 169 Rhythm: atrial fibrillation Findings: + ST depression (ST depressions in anterior and lateral leads, concerning for ischemia); no ST elevation Comparison ECG Date: from (01/26/2018) Change: no significant change (Rate has increased, otherwise EKG is similar to previous) Blood Pressure Blood Pressure Findings: Low blood pressure MDM Narrative There is a mild leukocytosis at 14,000, this could be consistent with infection or just her vomiting and pain. Hemoglobin slightly low at 11. There was a normal platelet count. Renal panel testing showed a somewhat low glucose at 66 , no kidney failure. Lactic acid level was not elevated making severe sepsis less likely. Alk phos mildly elevated, the bilirubin was normal. EKG shows a rapid A. fib with some ST depressions. Compared to previous EKGs, the ST depressions were not new, the rate was faster today. Cardiac enzyme testing x1 does not show evidence for acute cardiac injury. No evidence for pancreatitis by her testing. Digoxin level was low at 0.7. Urinalysis suggest contamination rather than infection. Chest film did not show pneumonia or CHF. Abdominal and pelvis CT demonstrates chronic changes from her cancer, ascites was seen. There was no bowel obstruction. On exam, the patient seemed dehydrated, she was tachycardic and hypotensive. The patient received IV saline 1 L, she was then given another bolus, 500 cc of saline. She received IV Zofran for nausea, IV morphine for pain. She was placed on a diltiazem drip to help control the heart rate. She received IV digoxin to help control the heart rate. The patient is quite ill. She is not to be aggressively managed, she is a DNR as per her daughter. The patient is in need of a hospital stay. She is in no condition to be discharged. She needs pain and nausea control, she needs IV hydration, she needs heart rate control. Of note, the patient does seem to be feeling better since her treatment so far in the ED. Her heart rate has decreased some. No vomiting while here in the emergency department. The patient and daughter are aware of the findings, I did speak with case management. The on-call hospitalist was consulted. Impression & Plan Atrial fibrillation, rapid, Pancreatic cancer, Dehydration, Vomiting, Hypotension Critical Care Time I have personally spent greater than 40 minutes of critical care time in the direct management of this patient. This includes bedside care, interpretation of diagnostic studies, and testing, discussion with consultants, patient, and family members, and other required patient management activities. This 40 minutes is in excess of all separately billable procedures. Critical Care Time: Yes Total Critical Care Time: 40 Discharge Plan Visit Data Chief Complaint: Vomiting Stated Complaint: VOMITING, ABD PAIN, CONSTIPATION ED Provider: Lg Wilder Discharge Problem: Atrial fibrillation, rapid, Pancreatic cancer, Dehydration, Vomiting, Hypotension Patient Disposition: Being Evaluated by Hospitalist Discharge Instructions Interventions: ED Discharge Assessment Last Done: 08/22/18 00:09 Forms Stand Alone Forms: My [facility] [email or web address] Prescriptions Prescriptions: No Action hydrocodone-acetaminophen 10-325 mg Tablet 1 tab PO UD PRN (Reason: Pain) RF: 0 pantoprazole 40 mg Tablet,Delayed Release (Dr/Ec) 40 mg PO DAILY RF: 0 metoprolol tartrate 50 mg Tablet 50 mg PO BID RF: 0 digoxin 125 mcg Tablet 0.125 mg PO DAILY RF: 0 Referrals Referrals: Oliver Maxwell MD [Primary Care Provider] - The scribe's documentation has been prepared under my direction and personally reviewed by me in its entirety. I confirm that the note above accurately reflects all work, treatment, procedures, and medical decision making performed by me.
--- NOTE | 2018-08-21 21:40 | XRay Report ---
XR chest 1V portable CLINICAL HISTORY: 73 years-old Female presenting with sob, history of pancreatic cancer. TECHNIQUE: Portable upright AP view of the chest was obtained. COMPARISON: 06/05/[address] from 09/30/2017. FINDINGS: Left subclavian pacer with leads to the right atrium and right ventricular apex. Right subclavian Med iport terminates in the lower SVC. Atherosclerosis of aortic arch. Cardiac silhouette mildly enlarged . No focal opacity. No large effusion or pneumothorax. Exaggerated thoracic kyphosis suggested. [place] us structures normal. Upper abdomen normal. IMPRESSION: 1. No acute cardiopulmonary disease. Electronically signed by: Cedric Byers M.D. 08/21/2018 9:39 PM
[2018-08-21 21:47] LABS: Basophils # (auto) 0.01 K/uL (0-0.2); Basophils % (auto) 0.1 %; Eosinophils # (auto) 0.02 K/uL (0-0.5); Eosinophils % (auto) 0.1 %; Hematocrit (blood only) 33.9 % (37-47); Immature Granulocytes # (auto) 0.04 K/uL (0.00-0.02); Immature Granulocytes % (auto) 0.3 %; Lymphocytes # (auto) 1.44 K/uL (1.2-3.4); Lymphocytes % (auto) 10.2 %; Mean Corpuscular Hgb Conc 32.4 g/dL (32-36); Mean Corpuscular Volume 81.5 fL (80-100); Mean Platelet Volume 9.6 fL (7.4-10.4); Monocytes # (auto) 1.24 K/uL (0.11-0.59); Monocytes % (auto) 8.8 %; Neutrophils # (auto) 11.31 K/uL (1.4-6.5); Neutrophils % (auto) 80.5 %; Platelet Count 391 K/uL (130-400); RDW Coefficient of Variation 17.7 % (11.5-14.5); RDW Standard Deviation 52.8 fL (36.4-46.3); Red Blood Count 4.16 M/uL (4.2-5.4); White Blood Count 14.06 K/uL (4.8-10.8)
[2018-08-21 22:03] LABS: Alanine Aminotransferase 11 U/L (12-78); Albumin Level 2.4 gm/dl (3.4-5.0); Aspartate Aminotransferase 18 U/L (15-37); BUN Creatinine Ratio 21.8 (10-20); Blood Urea Nitrogen 16 mg/dl (7-18); Calcium 8.5 mg/dl (8.5-10.1); Carbon Dioxide 26 mmol/L (21-32); Chloride 104 mmol/L (98-107); Est GFR (African American) 90.4; Glucose 66 mg/dl (70-99); Potassium 3.8 mmol/L (3.5-5.1); Sodium 137 mmol/L (136-145)
[2018-08-21 22:07] LABS: Albumin Globulin Ratio 0.6 (0.9-2); Alkaline Phosphatase 169 U/L (45-117); Bilirubin,Total 0.9 mg/dl (0.2-1); Globulin 3.9 gm/dl (2.5-4.0); Total Protein 6.3 gm/dl (6.4-8.2)
[2018-08-21 22:16] LABS: Magnesium 1.8 mg/dl (1.8-2.4); Troponin I < 0.015 ng/ml (0-0.045)
[2018-08-21] MEDS ORDERED: DIGOXIN 500 MCG/2 ML AMP IV ONE (22:27)
--- NOTE | 2018-08-21 22:27 | CT Scan Report ---
CT abd pelvis wo con CLINICAL HISTORY: 73 years-old Female presenting with cancer, poss obstruction, history of Whipple pr ocedure. TECHNIQUE: Multidetector CT of the abdomen and pelvis was performed without the use of intravenous co ntrast. IV contrast: None. One or more dose lowering techniques were used consistent with the princip les of ALARA (as low as reasonably achievable), including automatic exposure control, mA or kV adjust ment to individual patient size, and/or use of iterative reconstruction. COMPARISON: . CT DOSE (mGy.cm): The estimated cumulative dose is 360.04 mGy.cm. FINDINGS: Percher topogram: Pacer leads to the right atrium and right ventricular apex. Surgical clips project ov er the right upper quadrant. Lung bases: Multichamber enlargement of the heart. Trace left pleural effusion. Extensive bibasilar g roundglass opacities with mosaic attenuation and interlobular septal thickening. Pulmonary arteries a re mildly enlarged relative to adjacent bronchi. Liver: Interval atrophy of liver parenchyma with multifocal extremely low density regions. This appea sherrill is notably more pronounced and widespread than on prior exam. Biliary: Pneumobilia as on prior exam with the hepaticojejunostomy poorly delineated. Gallbladder lizzeth gically absent. Pancreas: Postsurgical changes of Whipple procedure with the pancreaticojejunostomy poorly delineated . Atrophy of the residual pancreatic tail. Spleen: Normal noncontrast appearance. Adrenal glands: Normal noncontrast appearance. Kidneys and ureters: Normal noncontrast appearance. No nephrolithiasis. No hydronephrosis. Normal ure ters. Bladder: Incompletely evaluated secondary to underdistention. Pelvic organs: Normal noncontrast appearance. Bowel: The transverse colon is somewhat featureless with mild diffuse wall thickening. The appendix i s poorly visualized. No bowel obstruction. Postsurgical changes of distal gastrectomy and duodenectom y. Patent gastrojejunostomy. 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 At the very least, granulation tissue remains at this site (series 3 image 149). Peritoneal cavity: Interval development of moderate volume ascites, which is simple appearing. No mehran ss evidence of soft tissue nodularity. The omentum is diffusely infiltrated, nonspecific. The mesente ry is also diffusely infiltrated. Fluid noted between the leaves of the mesentery. Lymph nodes: No gross lymphadenopathy allowing for noncontrast technique. Vasculature: Atherosclerosis of the normal caliber abdominal aorta. Slight prominence at the site of postsurgical change at the level of the superior mesenteric vein (series 3 image 185). This may be oc cluded. Abdominal wall: Body wall edema. Track at the midline ventral abdomen emanating from the prior fistul a with the stomach. Musculoskeletal: Degenerative changes of the spine. IMPRESSION: 1. Interval development of significant ascites. The presence of ascites presumably relates to develo pment of portal hypertension. 2. Increased prominence at the site of postsurgical change at the level of the superior mesenteric v ein raises concern for thrombus, which may be acute or chronic, or, less likely, recurrent disease. B ased on the patient's body habitus and the depth of the abnormality in the posterior abdomen, this wo uld likely be poorly demonstrated with ultrasound and preferably evaluated with intravenous contrast- enhanced CT. 3. Apparent interval hepatic parenchymal atrophy with geographic regions of severe hypoattenuation. This may represent progression of heterogeneous severe hepatic steatosis. The primary differential co nsideration is patchy areas of liver necrosis, considered less likely. 4. Redemonstration of postsurgical changes of Whipple procedure. These are not well demonstrated wit hout intravenous contrast. No bowel obstruction. 5. 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 6. Volume overload with body wall edema and congestive change in the lung bases in addition to ascit es. Electronically signed by: Cedric Byers M.D. 08/21/2018 10:25 PM
[2018-08-21] MEDS ORDERED: SODIUM CHLORIDE 0.9% 1000ML 500 ML IV ONE (22:30)
[2018-08-21 23:25] LABS: Appearance Urine Clear (Clear); Bacteria Urine Automated Negative (Negative); Blood Urine Negative (Negative); Color Urine Dark Yellow; Epithelial Cell Urine Auto >30 /lpf (0-5); Glucose Urine UA Negative (Negative); Ketones Urine Trace (Negative); Leukocyte Esterase Urine Trace (Negative); Nitrite Urine Positive (Negative); Protein Urine Trace (Negative); RBC Urine Automated 0-4 /hpf (0-4); Urobilinogen Urine Negative (Negative); pH Urine 5.5 (4.5-7.5)
[2018-08-21 23:32] LABS: Bilirubin Urine 1+ (Negative)
[2018-08-21 23:33] LABS: Ictotest Urine Positive (Negative)
--- NOTE | 2018-08-21 23:42 | History & Physical Report ---
Date of Service August 21, 2018 Assessment & Plan (1) Atrial fibrillation, rapid: Patient was started on a diltiazem drip in the ED with moderate improvement in heart rate. Patient was also given digoxin 0.25 mg IV by the ED. Continue diltiazem drip. Resume metoprolol tartrate 50 mg p.o. twice daily. Continue digoxin 0.125 mg p.o. daily. Present on Admission?: Yes (2) Pancreatic cancer: Metastatic pancreatic cancer to liver/malignant ascites/anasarca/history of Whipple-- Patient's abdominal discomfort is likely secondary to the development of ascites and abdominal distention. In the morning, when the daughter is present, would consult radiology for possible therapeutic paracentesis. The goal of the daughter, is to be able to get her mother well enough to have her travel back to [place] with her other daughter. The patient's daughter does not want a lot of procedures to be done, just to try to improve her enough for travel. Present on Admission?: Yes (3) Ascites, malignant: As above. Present on Admission?: Yes (4) Anasarca: As above. Present on Admission?: Yes (5) DVT (deep venous thrombosis): Patient is no longer on anticoagulation. Present on Admission?: Yes (6) Hypoglycemia due to type 2 diabetes mellitus: Blood sugar was low at 66 when patient came to the emergency department. Her daughter reports that she took a full dose of Lantus insulin yesterday morning, thinks she was going to be able to eat, but did not eat all day. Hold Lantus insulin. Given amp of D50 now. Place on full liquid diet as tolerated, to be held if paracentesis will be done. Placed on Accu-Cheks before meals and at bedtime with NovoLog coverage per scale. Present on Admission?: Yes History of Present Illness Chief Complaint: The patient is accompanied in the emergency department by her daughter, who speaks for her, as patient does not speak Amharic. The patient has known history of stage IV pancreatic cancer, and earlier today developed symptoms of vomiting, abdominal pain and constipation. Primary Care Provider: Oliver Maxwell MD The patient is a 73-year-old orb-[id number]-qixzydsm female, accompanied by her daughter who speaks for her in the emergency department, with report of vomiting , and abdominal discomfort that began earlier in the day. Patient has a history of stage IV pancreatic cancer that is metastatic to liver, has previously undergone a Whipple procedure, is no longer receiving chemotherapy. Her daughter reports that patient's last bowel movement was yesterday. CT scan of the abdomen and pelvis performed in the ED showed the development of new significant ascites. Daughter reports that the patient is a DNR, and wishes to be able to return to [place]. Allergies Allergy/AdvReac Type Severity Reaction Status Date / Time No Known Allergies Allergy Unverified 08/21/18 20:53 Home Medications Home Medications Medication Instructions Recorded Confirmed Type digoxin 0.125 mg PO DAILY 08/21/18 08/21/18 History hydrocodone-acetaminophen 1 tab PO UD PRN 08/21/18 08/21/18 History metoprolol tartrate 50 mg PO BID 08/21/18 08/21/18 History pantoprazole 40 mg PO DAILY 08/21/18 08/21/18 History insulin glargine [Lantus U-100 20 unit SUBCUT DAILY 08/22/18 08/22/18 History Insulin] Past Med/Surg History Medical History DVT (deep venous thrombosis) Atrial fibrillation Social History Current Living Situation: Family Other Information That Helps Us Care for You: No Feels Safe at Home: Yes Safety Concerns: Feels Safe At This Time Smoking Status: Never smoker Hx Alcohol Use: No Hx Substance Use: No Beliefs That Will Affect Care: Cultural Preferred Language: Kazakh Communication Ability: Impaired 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 Physical Exam 2 Vital Signs (Past 24 Hours): Last Vital Signs Temp 37.1 C 08/21/18 20:36 Pulse 151 H 08/21/18 22:58 Resp 18 08/21/18 22:58 BP 102/79 08/21/18 22:58 Pulse Ox 87 L 08/21/18 22:58 Physical Exam: The patient is awake, alert, normocephalic and atraumatic, lying in bed and in no acute distress. HEENT--PERRL, EOMI, mucous membranes and oropharynx dry. Neck--supple. No JVD. No bruits. Thyroid normal, trachea midline, no adenopathy. Heart--normal S1 and S2. No murmurs, rubs or gallops. Lungs--clear bilaterally, no respiratory distress, no accessory muscle use. Abdomen--normal bowel sounds and soft. Nontender. Distended and mildly tympanitic. Extremities--no cyanosis or clubbing. 2+ bilateral pretibial pitting edema. There are good distal pulses b/l. Dermatologic--normal skin turgor, normal color, no abnormal lymph nodes, no rash. Neurologic--cranial nerves II through XII grossly intact. Rheumatologic--normal range of motion. Psychiatric--normal affect. Results & Data Laboratory Results Laboratory Results WBC 14.06 K/uL (4.8-10.8) H 08/21/18 21:30 RBC 4.16 M/uL (4.2-5.4) L 08/21/18: Hgb 11.0 g/dL (12.0-16.0) L 08/21/18: Hct 33.9 % (37-47) L 08/21/18:30 MCV 81.5 fL (80-100) 08/21/18: MCH 26.4 pg (25-34) 08/21/18: MCHC 32.4 g/dL (32-36) 08/21/18 21:30 RDW Std Deviation 52.8 fL (36.4-46.3) H 08/21/18:30 RDW Coeff of Jose 17.7 % (11.5-14.5) H 08/21/18: Plt Count 391 K/uL (130-400) 08/21/18: MPV 9.6 fL (7.4-10.4) 08/21/18: Immature Gran % (Auto) 0.3 % 08/21/18: Neut % (Auto) 80.5 % 08/21/18:30 Lymph % (Auto) 10.2 % 08/21/18: Turner % (Auto) 8.8 % 08/21/18: Eos % (Auto) 0.1 % 08/21/18:30 Baso % (Auto) 0.1 % 08/21/18 21:30 Immature Gran # (Auto) 0.04 K/uL (0.00-0.02) H 08/21/18 21:30 Neut # (Auto) 11.31 K/uL (1.4-6.5) H 08/21/18 21:30 Lymph # (Auto) 1.44 K/uL (1.2-3.4) 08/21/18 21:30 Turner # (Auto) 1.24 K/uL (0.11-0.59) H 08/21/18 21:30 Eos # (Auto) 0.02 K/uL (0-0.5) 08/21/18 21:30 Baso # (Auto) 0.01 K/uL (0-0.2) 08/21/18 21:30 Sodium 137 mmol/L (136-145) 08/21/18 21:30 Potassium 3.8 mmol/L (3.5-5.1) 08/21/18 21:30 Chloride 104 mmol/L (98-107) 08/21/18 21:30 Carbon Dioxide 26 mmol/L (21-32) 08/21/18 21:30 Anion Gap 7.0 (3-11) 08/21/18 21:30 BUN 16 mg/dl (7-18) 08/21/18 21:30 Creatinine 0.75 mg/dl (0.6-1.2) 08/21/18 21:30 Est Cr Clr Drug Dosing Not Reportable 08/21/18 21:30 Est GFR ( Amer) 90.4 08/21/18 21:30 Est GFR (Non-Af Amer) 78.0 08/21/18 21:30 BUN/Creatinine Ratio 21.8 (10-20) H 08/21/18 21:30 Glucose 66 mg/dl (70-99) L 08/21/18 21:30 POC Glucose 178 (70-99) H 08/22/18 02: Lactate 2.0 mmol/L (0.4-2.0) 08/21/18 21:30 Calcium 8.5 mg/dl (8.5-10.1) 08/21/18 21:30 Magnesium 1.8 mg/dl (1.8-2.4) 08/21/18 21:30 Total Bilirubin 0.9 mg/dl (0.2-1) 08/21/18 21:30 AST 18 U/L (15-37) 08/21/18 21:30 ALT 11 U/L (12-78) L 08/21/18 21:30 Alkaline Phosphatase 169 U/L (45-117) H 08/21/18 21:30 Troponin I < 0.015 ng/ml (0-0.045) 08/21/18 21:30 Total Protein 6.3 gm/dl (6.4-8.2) L 08/21/18 21:30 Albumin 2.4 gm/dl (3.4-5.0) L 08/21/18 21:30 Globulin 3.9 gm/dl (2.5-4.0) 08/21/18 21:30 Albumin/Globulin Ratio 0.6 (0.9-2) L 08/21/18 21:30 Lipase 50 U/L (73-393) L 08/21/18 21:30 Urine Color Dark Yellow 08/21/18 23:15 Urine Appearance Clear (Clear) 08/21/18 23:15 Urine pH 5.5 (4.5-7.5) 08/21/18 23:15 Ur Specific [place] 1.030 (1.000-1.030) 08/21/18 23:15 Urine Protein Trace (Negative) H 08/21/18 23:15 Urine Glucose (UA) Negative (Negative) 08/21/18 23:15 Urine Ketones Trace (Negative) H 08/21/18 23:15 Urine Blood Negative (Negative) 08/21/18 23:15 Urine Nitrite Positive (Negative) H 08/21/18 23:15 Urine Bilirubin 1+ (Negative) H 08/21/18 23:15 Urine Urobilinogen Negative (Negative) 08/21/18 23:15 Ur Leukocyte Esterase Trace (Negative) H 08/21/18 23:15 Urine WBC (Auto) 1-5 /hpf (0-5) 08/21/18 23:15 Urine RBC (Auto) 0-4 /hpf (0-4) 08/21/18 23:15 U Hyaline Cast (Auto) 5-10 /lpf (0-5) H 08/21/18 23:15 U Epithel Cells (Auto) >30 /lpf (0-5) H 08/21/18 23:15 Urine Bacteria (Auto) Negative (Negative) 08/21/18 23:15 Digoxin 0.7 ng/ml (0.8-2.0) L 08/21/18 21:30 [phone] Scan Report Patient: ARIES SIMPSONAdmit Date: 08/21/18 MR#: [id number]: [address] [facility] Acct ID:[id number]: [facility] Zip[facility] [place] [id number] Age: 73Location: ED Sex: F Room/Bed: Att Phy: Diagnosis: VOMITING, ABD PAIN, CONSTIPATION Sharon Phy: Michael Maxwell MDService Date: 08/21/18 Fam Phy: Interpreting Phy: Cedric Byers MD Admit Phy: Ordering Phy: Lg Wilder M.D. cc: ~ CT abd pelvis wo con CLINICAL HISTORY: 73 years-old Female presenting with cancer, poss obstruction, history of Whipple procedure. TECHNIQUE: Multidetector CT of the abdomen and pelvis was performed without the use of intravenous contrast. IV contrast: None. One or more dose lowering techniques were used consistent with the principles of ALARA (as low as reasonably achievable), including automatic exposure control, mA or kV adjustment to individual patient size, and/or use of iterative reconstruction. COMPARISON: . CT DOSE (mGy.cm): The estimated cumulative dose is 360.04 mGy.cm. 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 Surgical clips project over the right upper quadrant. Lung bases: Multichamber enlargement of the heart. Trace left pleural effusion. Extensive bibasilar groundglass opacities with mosaic attenuation and interlobular septal thickening. Pulmonary arteries are mildly enlarged relative to adjacent bronchi. Liver: Interval atrophy of liver parenchyma with multifocal extremely low density regions. This appearance is notably more pronounced and widespread than on prior exam. Biliary: Pneumobilia as on prior exam with the hepaticojejunostomy poorly delineated. Gallbladder surgically absent. Pancreas: Postsurgical changes of Whipple procedure with the pancreaticojejunostomy poorly delineated. Atrophy of the residual pancreatic tail. Spleen: Normal noncontrast appearance. Adrenal glands: Normal noncontrast appearance. Kidneys and ureters: Normal noncontrast appearance. No nephrolithiasis. No hydronephrosis. Normal ureters. Bladder: Incompletely evaluated secondary to underdistention. Pelvic organs: Normal noncontrast appearance. Bowel: The transverse colon is somewhat featureless with mild diffuse wall thickening. The appendix is poorly visualized. No bowel obstruction. Postsurgical changes of distal gastrectomy and duodenectomy. Patent gastrojejunostomy. 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 At the very least, granulation tissue remains at this site (series 3 image 149). Peritoneal cavity: Interval development of moderate volume ascites, which is simple appearing. No gross evidence of soft tissue nodularity. The omentum is diffusely infiltrated, nonspecific. The mesentery is also diffusely infiltrated. Fluid noted between the leaves of the mesentery. Lymph nodes: No gross lymphadenopathy allowing for noncontrast technique. Vasculature: Atherosclerosis of the normal caliber abdominal aorta. Slight prominence at the site of postsurgical change at the level of the superior mesenteric vein (series 3 image 185). This may be occluded. Abdominal wall: Body wall edema. Track at the midline ventral abdomen emanating from the prior fistula with the stomach. Musculoskeletal: Degenerative changes of the spine. IMPRESSION: 1. Interval development of significant ascites. The presence of ascites presumably relates to development of portal hypertension. 2. Increased prominence at the site of postsurgical change at the level of the superior mesenteric vein raises concern for thrombus, which may be acute or chronic, or, less likely, recurrent disease. Based on the patient's body habitus and the depth of the abnormality in the posterior abdomen, this would likely be poorly demonstrated with ultrasound and preferably evaluated with intravenous contrast-enhanced CT. 3. Apparent interval hepatic parenchymal atrophy with geographic regions of severe hypoattenuation. This may represent progression of heterogeneous severe hepatic steatosis. The primary differential consideration is patchy areas of liver necrosis, considered less likely. 4. Redemonstration of postsurgical changes of Whipple procedure. These are not well demonstrated without intravenous contrast. No bowel obstruction. 5. 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 6. Volume overload with body wall edema and congestive change in the lung bases in addition to ascites. Electronically signed by: Cedric Byers M.D. 08/21/2018 10:25 PM Dictated: 08/21/182210 Transcribed: 08/21/182210 [facility], [place] [phone] XRay Report Patient: ARIES SIMPSONAdmit Date: 08/21/18 MR#: [id number]: [address] [facility] Acct ID:[id number]: [facility] Zip: [place] [id number] Age: 73Location: ED Sex: F Room/Bed: Att Phy: Diagnosis: VOMITING, ABD PAIN, CONSTIPATION Sharon Phy: Michael Maxwell, MDService Date: 08/21/18 Fam Phy: Interpreting Phy: Cedric Byers MD Admit Phy: Ordering Phy: Lg Wilder M.D. cc: ~ XR chest 1V portable CLINICAL HISTORY: 73 years-old Female presenting with sob, history of pancreatic cancer. TECHNIQUE: Portable upright AP view of the chest was obtained. COMPARISON: 06/05/[address] from 09/30/2017. FINDINGS: Left subclavian pacer with leads to the right atrium and right ventricular apex. Right subclavian Mediport terminates in the lower SVC. Atherosclerosis of aortic arch. Cardiac silhouette mildly enlarged. No focal opacity. No large effusion or pneumothorax. Exaggerated thoracic kyphosis suggested. Osseous structures normal. Upper abdomen normal. IMPRESSION: 1. No acute cardiopulmonary disease. Electronically signed by: Cedric Byers M.D. 08/21/2018 9:39 PM Dictated: 08/21/182136 Transcribed: 08/21/182136 Code Status & VTE Plan Code Status DO NOT RESUSCITATE VTE Prophylaxis Plan VTE Prophylaxis will be ordered: Yes _ (1) Pancreatic cancer Pancreatic malignancy location:
[2018-08-21] MEDS: ALBUMIN 25% 50 ML IV SCH (23:54)
[2018-08-22] MEDS ORDERED: ONDANSETRON INJ 2 MG/ML 2 ML VIAL IV PRN (01:00)
[2018-08-22] MEDS: ALBUMIN 25% 50 ML IV SCH ×2 (01:12→01:39)
[2018-08-22] MEDS: METOPROLOL TARTRATE 50 MG TAB PO SCH ×3 (01:26→20:18)
[2018-08-22] MEDS ORDERED: DEXTROSE 50% 50 ML SYRINGE IV ONE (01:51)
[2018-08-22] MEDS ORDERED: GLUCAGON FOR INJ 1 MG VIAL SQ PRN (01:55)
[2018-08-22] MEDS ORDERED: DEXTROSE 50% 50 ML SYRINGE IV PRN (01:55)
[2018-08-22] MEDS ORDERED: GLUCOSE 40% GEL 15 GM TUBE PO PRN (01:55)
[2018-08-22] MEDS ORDERED: GLUCOSE 10 TABS/TUBE PO PRN (01:55)
[2018-08-22] MEDS ORDERED: CARBOHYDRATES FOR HYPOGLYCEMIA PO PRN (01:55)
[2018-08-22] MEDS ORDERED: Nursing to Pharmacy Communication ONE ×2 (02:09→03:15)
[2018-08-22] MEDS ORDERED: dilTIAZem HCl 125 MG in DEXTROSE 5% 100 ML IV PRN (03:02)
[2018-08-22 06:39] LABS: Basophils # (auto) 0.02 K/uL (0-0.2); Basophils % (auto) 0.2 %; Eosinophils # (auto) 0.04 K/uL (0-0.5); Eosinophils % (auto) 0.4 %; Hematocrit (blood only) 29.2 % (37-47); Hemoglobin 9.2 g/dL (12.0-16.0); Immature Granulocytes # (auto) 0.03 K/uL (0.00-0.02); Immature Granulocytes % (auto) 0.3 %; Lymphocytes # (auto) 1.06 K/uL (1.2-3.4); Lymphocytes % (auto) 10.2 %; Mean Corpuscular Hgb Conc 31.5 g/dL (32-36); Mean Corpuscular Volume 81.6 fL (80-100); Mean Platelet Volume 9.3 fL (7.4-10.4); Monocytes # (auto) 1.26 K/uL (0.11-0.59); Monocytes % (auto) 12.2 %; Neutrophils # (auto) 7.94 K/uL (1.4-6.5); Neutrophils % (auto) 76.7 %; Platelet Count 301 K/uL (130-400); RDW Coefficient of Variation 17.6 % (11.5-14.5); RDW Standard Deviation 52.9 fL (36.4-46.3); Red Blood Count 3.58 M/uL (4.2-5.4); White Blood Count 10.35 K/uL (4.8-10.8)
[2018-08-22 06:53] LABS: INR 1.5 (0.9-1.1)
[2018-08-22 07:15] LABS: Albumin Level 2.5 gm/dl (3.4-5.0); BUN Creatinine Ratio 25.7 (10-20); Calcium 7.9 mg/dl (8.5-10.1); Creatinine Clr Calc Pharmacy 79.9 ml/min; Est GFR (African American) 104.5; Est GFR (Non-African American) 90.2
[2018-08-22 07:18] LABS: Albumin Globulin Ratio 0.8 (0.9-2); Bilirubin,Total 1.2 mg/dl (0.2-1); Globulin 3.2 gm/dl (2.5-4.0); Total Protein 5.7 gm/dl (6.4-8.2)
[2018-08-22] MEDS: INSULIN ASPART 100 UNITS/ML 3 ML PEN SC SCH ×4 (08:07→20:47)
[2018-08-22 08:11] LABS: Estimated Average Glucose 169 mg/dl; Hemoglobin A1C 7.5 % (4.5-5.6)
[2018-08-22] MEDS ORDERED: PNEUMOCOCCAL ADMINISTRATION CHARGE ONE (08:30)
[2018-08-22] MEDS ORDERED: PNEUMOCOCCAL POLYSACCHARIDES 25 MCG/0.5 ML VIAL/SYR IM ONE (08:30)
[2018-08-22] MEDS ORDERED: INFLUENZA VACCINE HIGH DOSE 65+ 0.5 ML SYR IM ONE (08:30)
[2018-08-22] MEDS ORDERED: INFLUENZA ADMINISTRATION CHARGE ONE (08:30)
[2018-08-22] MEDS ORDERED: HEPARIN SOD 5,000 UNIT/0.5 ML VIAL SQ SCH (09:00)
[2018-08-22] MEDS: PANTOprazole 40 MG TAB PO SCH (11:20)
[2018-08-22] MEDS: HYDROCODONE/ACETAMINOPHEN 10/325 TAB PO PRN (15:00)
--- NOTE | 2018-08-22 15:02 | Ultrasound Report ---
US paracentesis abd w/image CLINICAL HISTORY: 73 years-old Female presenting with ascites. COMPARISON: CT from 08/21/2018. PROCEDURE: Consent was obtained from the patient's adult daughter present for the procedure. The procedure and its risks, benefits, and alternatives were discussed with the patient's daughter, a nd written informed consent was obtained. All questions were answered. A timeout was performed to con firm patient identity. Limited ultrasound of the abdomen was performed to determine a safe needle entry site, and the site w as marker for paracentesis. The right lower quadrant was prepped and draped in the usual aseptic fashion. 1% Lidocaine was used f or local anesthesia. A paracentesis needle-sheath was inserted into the peritoneal space using ultrasound guidance. The ne edle was removed and the sheath was connected to tubing and a vacuum suction device. A total of 2 L o f clear yellow ascites was aspirated. The sheath was removed, and a dressing applied. The patient tolerated the procedure well. No immediate complications. IMPRESSION: Ultrasound-guided diagnostic and therapeutic paracentesis with aspiration of 2 L of ascites. Electronically signed by: Cedric Byers M.D. 08/22/2018 3:01 PM
--- NOTE | 2018-08-22 15:09 | Palliative Care Progress Note ---
Date of Service August 22, 2018 Subjective Palliative Care Team to see patient on 08/23 Physical Exam 2 Vital Signs (Past 24 Hours): Last Vital Signs Temp 37.1 C 08/22/18 10:50 Pulse 95 H 08/22/18 10:50 Resp 24 08/22/18 10:50 BP 95/48 L 08/22/18 10:50 Pulse Ox 92 08/22/18 10:50
[2018-08-22 15:35] LABS: Appearance Peritoneal Fluid CLOUDY; Color Peritoneal Fluid YELLOW; Mononuclear WBC Peritoneal 15.1 %; Polynuclear WBC Peritoneal 84.9 %; RBC Peritoneal Fluid (A) < 3000 /uL; WBC Peritoneal Fluid (A) 5743 /ul (0-300)
[2018-08-22 15:51] LABS: Albumin Peritoneal Fluid 0.9 g/dl; Glucose Peritoneal Fluid 84 mg/dl
[2018-08-22 15:58] LABS: Amylase Peritoneal Fluid 6 U/L; LDH Peritoneal Fluid 75 U/L; Lipase Peritoneal Fluid 14 U/L; Total Protein Peritoneal Fluid 1.9 g/dl; Triglyceride Peritoneal Fluid 33 mg/dl
[2018-08-22] MEDS: DIGOXIN 0.125 MG TAB PO SCH (16:36)
--- NOTE | 2018-08-22 21:33 | Hospitalist Progress Note ---
Date of Service August 22, 2018 Assessment & Plan (1) Atrial fibrillation, rapid: Patient was started on a diltiazem drip in the ED with moderate improvement in heart rate. Patient was also given digoxin 0.25 mg IV by the ED. Now rate controlled, off dilt gtt and on home meds Resumed metoprolol tartrate 50 mg p.o. twice daily. Continue digoxin 0.125 mg p.o. daily. -not on AC due to high risk of bleeding (2) Pancreatic cancer: Metastatic pancreatic cancer to liver/history of Whipple-- Patient's abdominal discomfort is likely secondary to the development of ascites with SBP as below and abdominal distention. Had therapeutic and diagnostic paracentesis today under IR as below removed 2L -no further chemo, goal of care is comfort Consult palliative care to discuss enrolling in Hospice (3) Ascites, malignant: Most likely, path pending (4) SBP (spontaneous bacterial peritonitis): WBC count 5743 on peritoneal fluid with 84% PMNs, afebrile but presented with abd pain and vomiting--> start Rocephin 2 grams daily -consult GI for further recommendations (5) Anasarca: As above. (6) Hypoglycemia due to type 2 diabetes mellitus: Blood sugar was low at 66 when patient came to the emergency department.Now improved with holding Lantus from home and D50 amp in admission Hold Lantus insulin. Given amp of D50 now. Placed on Accu-Cheks before meals and at bedtime with NovoLog coverage per scale. (7) DVT (deep venous thrombosis): Patient is no longer on anticoagulation. Proph-hold SQ heparin for procedure Dispo-remain on tele Subjective Pt still having pain in mid abdomen. No diarrhea or constipation. no more vomiting but still is nauseated. Daughter acts as associate professor of pathology. Says her mom was doing fairly well until she started having abd pain and vomiting one week ago, then had slight improvement, then worsened the day of admission. Goal is now for comfort, would like to enroll her mother in Hospice. Tele with Afib with rates controlled 80s-90s Review of Systems All systems reviewed & are unremarkable except as noted in HPI & below (no chest pain, SOB, has a +mild CISNEROS, no joint pains) Physical Exam 2 Vital Signs (Past 24 Hours): Last Vital Signs Temp 37.1 C 08/22/18 15:37 Pulse 89 08/22/18 19:55 Resp 16 08/22/18 19:55 BP 101/43 L 08/22/18 19:55 Pulse Ox 96 08/22/18 19:55 Constitutional: well developed; no acute distress (lying in bed but alert and awake) Eyes: PERRL, conjunctivae normal, anicteric sclerae ENMT: external ear and nose normal, oropharynx normal Neck: trachea midline, no thyromegaly Respiratory: normal respiratory effort, lungs clear to auscultation Cardiovascular: RRR, no murmur, no edema Gastrointestinal (Abdomen): Inspection/Auscultation: + abdomen distended and normal bowel sounds; + abdomen abnormal to inspection Percussion/Palpation: + abdomen tender (mid abdomen, with large scarred area with small opening without drainage central abdomen) Musculoskeletal: Extremities: extremities normal to inspection; no cyanosis and no clubbing Skin: no rashes, warm and dry Neurologic: moves all extremities and awake; no focal motor deficits Psychiatric: A+Ox3, euthymic affect Results & Data Laboratory Results 08/22/18 08/22/18 08/22/18 Range/Units Unknown 19:56 15:53 POC Glucose 115 H 81 (70-99) Estimat Average Glucose mg/dl Hemoglobin A1c (4.5-5.6) % Peritoneal Color YELLOW Peritoneal Appearance CLOUDY Peritoneal WBC 5743 H (0-300) /ul Peritoneal RBC < 3000 /uL Mononuclear WBCs % 15.1 % Polynuclear WBCs % 84.9 % Peritoneal Tot Protein 1.9 g/dl Peritoneal Albumin 0.9 g/dl Peritoneal LDH 75 U/L Peritoneal Glucose 84 mg/dl Peritoneal Amylase 6 U/L Peritoneal Lipase 14 U/L Peritoneal Triglycerid 33 mg/dl 08/22/18 08/22/18 Range/Units 12:15 06:21 POC Glucose 86 (70-99) Estimat Average Glucose 169 mg/dl Hemoglobin A1c 7.5 H (4.5-5.6) % Peritoneal Color Peritoneal Appearance Peritoneal WBC (0-300) /ul Peritoneal RBC /uL Mononuclear WBCs % % Polynuclear WBCs % % Peritoneal Tot Protein g/dl Peritoneal Albumin g/dl Peritoneal LDH U/L Peritoneal Glucose mg/dl Peritoneal Amylase U/L Peritoneal Lipase U/L Peritoneal Triglycerid mg/dl _ (1) Pancreatic cancer Pancreatic malignancy location:
[2018-08-22] MEDS: cefTRIAXone SODIUM 2,000 MG in DEXTROSE 5% 50 ML IV SCH (22:33)
[2018-08-23] MEDS: HYDROCODONE/ACETAMINOPHEN 10/325 TAB PO PRN ×2 (02:04→21:25)
[2018-08-23 08:10] LABS: Basophils # (auto) 0.02 K/uL (0-0.2); Basophils % (auto) 0.2 %; Eosinophils % (auto) 0.8 %; Hematocrit (blood only) 28.4 % (37-47); Hemoglobin 9.1 g/dL (12.0-16.0); Immature Granulocytes # (auto) 0.03 K/uL (0.00-0.02); Immature Granulocytes % (auto) 0.3 %; Lymphocytes # (auto) 1.32 K/uL (1.2-3.4); Lymphocytes % (auto) 11.1 %; Mean Corpuscular Volume 80.7 fL (80-100); Mean Platelet Volume 10.3 fL (7.4-10.4); Monocytes # (auto) 1.33 K/uL (0.11-0.59); Monocytes % (auto) 11.1 %; Neutrophils # (auto) 9.13 K/uL (1.4-6.5); Neutrophils % (auto) 76.5 %; Platelet Count 328 K/uL (130-400); RDW Coefficient of Variation 17.8 % (11.5-14.5); RDW Standard Deviation 52.1 fL (36.4-46.3); Red Blood Count 3.52 M/uL (4.2-5.4); White Blood Count 11.93 K/uL (4.8-10.8)
[2018-08-23 08:30] LABS: BUN Creatinine Ratio 25.4 (10-20); Calcium 7.7 mg/dl (8.5-10.1); Est GFR (African American) 106.3; Est GFR (Non-African American) 91.8; Magnesium 1.8 mg/dl (1.8-2.4); Potassium 3.9 mmol/L (3.5-5.1)
[2018-08-23 08:37] LABS: Albumin Globulin Ratio 0.6 (0.9-2); Bilirubin,Total 0.9 mg/dl (0.2-1); Globulin 3.2 gm/dl (2.5-4.0); Total Protein 5.2 gm/dl (6.4-8.2)
[2018-08-23 08:43] LABS: INR 1.5 (0.9-1.1); Prothrombin Time 14.6 Seconds (9.0-12.0)
[2018-08-23] MEDS: INSULIN ASPART 100 UNITS/ML 3 ML PEN SC SCH ×4 (08:44→21:23)
[2018-08-23] MEDS: PANTOprazole 40 MG TAB PO SCH (08:45)
[2018-08-23] MEDS: METOPROLOL TARTRATE 50 MG TAB PO SCH ×2 (08:45→21:26)
[2018-08-23 09:09] LABS: Bilirubin Direct 0.3 mg/dl (0-0.2); Bilirubin,Total 0.9 mg/dl (0.2-1); Total Protein 5.3 gm/dl (6.4-8.2)
--- NOTE | 2018-08-23 11:33 | Palliative Care Consultation ---
Date of Consultation August 23, 2018 Assessment & Plan (1) Palliative care encounter: This is a 73 year old [place] Female who presented to the [facility] ED with vomiting, constipation, abdominal pain. She has a PMH that includes A- fib, HLD, and pancreatic cancer which was diagnosed in 02/2017. In 03/2017, she underwent a Whipple's procedure and per daughter, had a complicated recovery. In September 2017, liver metastasis was found and chemotherapy was no longer an option. She has had a few months of being independent, but overall has shown decline. Yesterday, she underwent a paracentesis, for which the fluid is suspected to be malignant. -I met with patient and patient daughter, and SUNNY Badillo student in the room. -The patient daughter explained how she is here on [place], but lives with her daughter and three grandchildren. -The daughter expressed that when she is at home, the daughter prepares meals, etc for her to have during the day while she works. It appears she has off Wednesday and . -The patient's daughter expressed wanting to investigate the option of going home (to her daughters) with Hospice vs. a terminal repatriation back to [place]. -Currently, I expressed that I would feel most comfortable with her flying with a nurse for symptom management in flight should the need arise; however, pending how she presented over the next few days, a fitness to fly letter would need to be written for a non-medical escort if stable (Hgb > 10, no paracentesis x 5 days due to gas expansion). Ultimately, the patients family has connections with [employer] that may be able to expedite her terminal repatriation back to [place]. A RERE (Medical Equipment Device Application) will need to be completed and given to the airline prior to any travel (which usually takes 72 hours). The daughter expressed they may have nursing come from [place], pending what travel VISA looks like. -I expressed this is something we can continue to look oat over the next few days. -Ultimately, if repatriation is the main goal, I would suggest contacting a medical assistance company like [employer] ([phone]) so they can start to facilitate private costs, ground transportation, etc and any receiving care that would be required. -Will continue to talk with family over next few days to discuss next plans. -Pt being treated currently with SBP and IV abx - Hospitalist to determine ELOS. -Palliative Performance Scale: 50% (2) Ascites, malignant: -Managed by Hospitalists -GI was consulted today -Pt had abdominal pain, N/V at home which brought her to the ED. -Ascites has started over past few weeks - initial paracentesis done yesterday with 2L removed. Suspected malignant, pathology pending (3) Atrial fibrillation, rapid: -Pt had rapid A-fib in the ED, placed on Diltizaem drip, which has been weaned and now patient is medically managed -Medically managed with Metoprolol 50mg po BID , Digoxin 0.125 mcg po daily -Pt not on an anticoagulant, but may be C/I with bleeding risk r/t paracentesis -Consider teds /SCD's (4) Pancreatic cancer: -Pancreatic CA diagnosed in 02/2017. -In 03/2017, she underwent a Whipple's procedure and per daughter, had a complicated recovery. -In September 2017, liver metastasis was found and chemotherapy was no longer an option. -She has had a few months of being independent, but overall has shown decline. -Per daughter, plan is home with hospice vs terminal repatriation to [place]. Pancreatic malignancy location: Supervising Physician Co-Signing Physician Notes Chart reviewed, patient seen and examined. Also spoke with patient's daughter Collaborated with SUNNY Ortez. Patient is status post paracentesis for 2 L-positive for malignant cells PE: No acute distress HEENT: EOMI, normal hearing Respirations: Unlabored CV: Regular rate Abdomen: Distended, soft, nontender Agree with above note, assessment and plan as per SUNNY Ortez -will continue to follow and assist patient and family with medical decision making. Daughter aware of patient's prognosis. History of Present Illness Reason for Consultation: Goals of Care Requesting Physician: Dr. Pearson Attending Physician: Chrissy eParson MD History of Present Illness This is a 73 year old [place] Female who presented to the [facility] ED with vomiting, constipation, abdominal pain. She has a PMH that includes A-fib, HLD, and pancreatic cancer which was diagnosed in 02/2017. In 03/2017, she underwent a Whipple's procedure and per daughter, had a complicated recovery. In September 2017, liver metastasis was found and chemotherapy was no longer an option. She has had a few months of being independent, but overall has shown decline. Yesterday, she underwent a paracentesis, for which the fluid is suspected to be malignant. She is here on [place], but lives with her daughter and three grandchildren. The patient's daughter expressed wanting to investigate the option of going home (to her daughters) with Hospice vs. a terminal repatriation back to [place]. Palliative Care was consulted to discuss Goals of Care further. Please see Assessment and Plan for further details. Thank you kindly for involving us in this patients care. We will follow through her hospitalization. Allergies Allergy/AdvReac Type Severity Reaction Status Date / Time No Known Allergies Allergy Unverified 08/21/18 20:53 Home Medications Home Medications Medication Instructions Recorded Confirmed Type digoxin 0.125 mg PO DAILY 08/21/18 08/21/18 History hydrocodone-acetaminophen 1 tab PO UD PRN 08/21/18 08/21/18 History metoprolol tartrate 50 mg PO BID 08/21/18 08/21/18 History pantoprazole 40 mg PO DAILY 08/21/18 08/21/18 History insulin glargine [Lantus U-100 20 unit SUBCUT DAILY 08/22/18 08/22/18 History Insulin] Patient History Medical History DVT (deep venous thrombosis) Atrial fibrillation Social History Current Living Situation: Family Other Information That Helps Us Care for You: No Feels Safe at Home: Yes Safety Concerns: Feels Safe At This Time Smoking Status: Never smoker Hx Alcohol Use: No Hx Substance Use: No Beliefs That Will Affect Care: Cultural Communication Ability: Effective Review of Systems Per translation from pt daughter: General: Pt denies pain CV: Pt denies CP Resp: Pt denies breathing difficulty GI: Pt denies abdominal pain Physical Exam 2 Vital Signs (Past 24 Hours): Last Vital Signs Temp 37.2 C 08/23/18 11:04 Pulse 101 H 08/23/18 11:04 Resp 20 08/23/18 11:04 BP 99/59 L 08/23/18 11:04 Pulse Ox 97 08/23/18 11:04 Physical Exam: Pt lying in bed sleeping upon entering, awoke pleasantly Constitutional: well developed, + well hydrated, healthy appearing and cooperative ENMT: external ear and nose normal, oropharynx normal Respiratory: normal respiratory effort, lungs clear to auscultation Cardiovascular: Rate/Rhythm: regular rate and regular rhythm Extremities: + edema (trace pitting pedal edema) Gastrointestinal (Abdomen): Inspection/Auscultation: + abdomen distended and normal bowel sounds Skin: no rashes, warm and dry normal turgor Time Spent Midlevel total time spent 50 minutes with > 50% of that time spent reviewing the chart, assessing the patient, discussing GOALS OF CARE with patient and daughter.
--- NOTE | 2018-08-23 14:23 | Hospitalist Progress Note ---
Date of Service August 23, 2018 Assessment & Plan (1) Atrial fibrillation, rapid: Patient was started on a diltiazem drip in the ED with moderate improvement in heart rate. Patient was also given digoxin 0.25 mg IV by the ED. Now rate controlled, off dilt gtt and on home meds -continue metoprolol tartrate 50 mg p.o. twice daily. -Continue digoxin 0.125 mg p.o. daily. -not on AC due to high risk of bleeding -stable for downgrade off tele (2) Pancreatic cancer: Metastatic pancreatic cancer to liver/history of Whipple-- Patient's abdominal discomfort is likely secondary to the development of ascites with SBP as below and abdominal distention. Had therapeutic and diagnostic paracentesis on 08/22 under IR as below removed 2L -no further chemo, goal of care is comfort Consult palliative care to discuss enrolling in Hospice-issue is she has no insurance but there are some philanthropic options-CM assisting (3) Ascites, malignant: Most likely, path pending (4) SBP (spontaneous bacterial peritonitis): WBC count 5743 on peritoneal fluid with 84% PMNs, afebrile but presented with abd pain and vomiting--> started Rocephin 2 grams daily-today day#2 -consult GI for further recommendations-appreciated: -can transition to Cipro 500mg po qday -add aldactone 12.5mg daily and lasix 20mg daily (5) Anasarca: As above. (6) Hypoglycemia due to type 2 diabetes mellitus: Blood sugar was low at 66 when patient came to the emergency department.Now improved with holding Lantus from home and D50 amp in admission continue to Hold Lantus insulin. Placed on Accu-Cheks before meals and at bedtime with NovoLog coverage per scale. -will likely not need Lantus on discharge (7) DVT (deep venous thrombosis): Patient is no longer on anticoagulation. Proph-hold SQ heparin for recent procedure Dispo-transition to medical floor, continued stay for IV abx for SBP, observation, see if may need repeat tap Plan to go home with possible Hospice if covered under philanthropic source? Possibly trying to fly her back to [place] within the month Subjective Feeling much better today, less abd pain, less nausea, but is eating. Moved her bowels. Was out of bed and ambulating in the room. Denies Cp or SOB. Discussed case with GI and Palliative Care Review of Systems All systems reviewed & are unremarkable except as noted in HPI & below Physical Exam 2 Vital Signs (Past 24 Hours): Last Vital Signs Temp 37.2 C 08/23/18 11:04 Pulse 101 H 08/23/18 11:04 Resp 20 08/23/18 11:04 BP 99/59 L 08/23/18 11:04 Pulse Ox 97 08/23/18 11:04 Constitutional: WD/WN, vitals as above Eyes: PERRL, conjunctivae normal, anicteric sclerae ENMT: external ear and nose normal, oropharynx normal Neck: trachea midline, no thyromegaly Respiratory: normal respiratory effort, lungs clear to auscultation Cardiovascular: Rate/Rhythm: regular rate; + abnormal rhythm (irreg irreg) Heart Sounds: no murmur Extremities: no edema Gastrointestinal (Abdomen): Inspection/Auscultation: normal bowel sounds; + abdomen abnormal to inspection and abdomen not distended Percussion/Palpation : + abdomen tender (diffusely but no guarding or rebound) Musculoskeletal: Extremities: extremities normal to inspection; no cyanosis and no clubbing Skin: no rashes, warm and dry Neurologic: moves all extremities and awake; no focal motor deficits Psychiatric: A+Ox3, euthymic affect Results & Data Laboratory Results 08/23/18 08/23/18 08/23/18 Range/Units 11:27 08:12 08:12 WBC (4.8-10.8) K/uL RBC (4.2-5.4) M/uL Hgb (12.0-16.0) g/dL Hct (37-47) % MCV (80-100) fL MCH (25-34) pg MCHC (32-36) g/dL RDW Std Deviation (36.4-46.3) fL RDW Coeff of Jose (11.5-14.5) % Plt Count (130-400) K/uL MPV (7.4-10.4) fL Immature Gran % (Auto) % Neut % (Auto) % Lymph % (Auto) % [place] % (Auto) % Eos % (Auto) % Baso % (Auto) % Immature Gran # (Auto) (0.00-0.02) K/uL Neut # (Auto) (1.4-6.5) K/uL Lymph # (Auto) (1.2-3.4) K/uL [place] # (Auto) (0.11-0.59) K/uL Eos # (Auto) (0-0.5) K/uL Baso # (Auto) (0-0.2) K/uL PT 14.6 H (9.0-12.0) Seconds INR 1.5 H (0.9-1.1) Sodium (136-145) mmol/L Potassium (3.5-5.1) mmol/L Chloride (98-107) mmol/L Carbon Dioxide (21-32) mmol/L Anion Gap (3-11) BUN (7-18) mg/dl Creatinine (0.6-1.2) mg/dl Est Cr Clr Drug Dosing ml/min Est GFR ( Amer) Est GFR (Non-Af Amer) BUN/Creatinine Ratio (10-20) Glucose (70-99) mg/dl POC Glucose 117 H (70-99) Calcium (8.5-10.1) mg/dl Magnesium (1.8-2.4) mg/dl Total Bilirubin (0.2-1) mg/dl Direct Bilirubin (0-0.2) mg/dl AST (15-37) U/L ALT (12-78) U/L Alkaline Phosphatase (45-117) U/L Troponin I < 0.015 (0-0.045) ng/ml Total Protein (6.4-8.2) gm/dl Albumin (3.4-5.0) gm/dl Globulin (2.5-4.0) gm/dl Albumin/Globulin Ratio (0.9-2) Peritoneal Color Peritoneal Appearance Peritoneal WBC (0-300) /ul Peritoneal RBC /uL Mononuclear WBCs % % Polynuclear WBCs % % Peritoneal Tot Protein g/dl Peritoneal Albumin g/dl Peritoneal LDH U/L Peritoneal Glucose mg/dl Peritoneal Amylase U/L Peritoneal Lipase U/L Peritoneal Triglycerid mg/dl 08/23/18 08/23/18 08/23/18 Range/Units 08:12 07:24 06:21 WBC (4.8-10.8) K/uL RBC (4.2-5.4) M/uL Hgb (12.0-16.0) g/dL Hct (37-47) % MCV (80-100) fL MCH (25-34) pg MCHC (32-36) g/dL RDW Std Deviation (36.4-46.3) fL RDW Coeff of Jose (11.5-14.5) % Plt Count (130-400) K/uL MPV (7.4-10.4) fL Immature Gran % (Auto) % Neut % (Auto) % Lymph % (Auto) % [place] % (Auto) % Eos % (Auto) % Baso % (Auto) % Immature Gran # (Auto) (0.00-0.02) K/uL Neut # (Auto) (1.4-6.5) K/uL Lymph # (Auto) (1.2-3.4) K/uL [place] # (Auto) (0.11-0.59) K/uL Eos # (Auto) (0-0.5) K/uL Baso # (Auto) (0-0.2) K/uL PT (9.0-12.0) Seconds INR (0.9-1.1) Sodium 135 L (136-145) mmol/L Potassium 3.9 (3.5-5.1) mmol/L Chloride 103 (98-107) mmol/L Carbon Dioxide 27 (21-32) mmol/L Anion Gap 5.0 (3-11) BUN 14 (7-18) mg/dl Creatinine 0.55 L (0.6-1.2) mg/dl Est Cr Clr Drug Dosing 84.0 ml/min Est GFR ( Amer) 106.3 Est GFR (Non-Af Amer) 91.8 BUN/Creatinine Ratio 25.4 H (10-20) Glucose 102 H (70-99) mg/dl POC Glucose 100 H (70-99) Calcium 7.7 L (8.5-10.1) mg/dl Magnesium 1.8 (1.8-2.4) mg/dl Total Bilirubin 0.9 0.9 (0.2-1) mg/dl Direct Bilirubin 0.3 H (0-0.2) mg/dl AST 12 L 12 L (15-37) U/L ALT 8 L 8 L (12-78) U/L Alkaline Phosphatase 139 H 139 H (45-117) U/L Troponin I (0-0.045) ng/ml Total Protein 5.3 L 5.2 L (6.4-8.2) gm/dl Albumin 2.0 L 2.0 L (3.4-5.0) gm/dl Globulin 3.2 (2.5-4.0) gm/dl Albumin/Globulin Ratio 0.6 L (0.9-2) Peritoneal Color Peritoneal Appearance Peritoneal WBC (0-300) /ul Peritoneal RBC /uL Mononuclear WBCs % % Polynuclear WBCs % % Peritoneal Tot Protein g/dl Peritoneal Albumin g/dl Peritoneal LDH U/L Peritoneal Glucose mg/dl Peritoneal Amylase U/L Peritoneal Lipase U/L Peritoneal Triglycerid mg/dl 08/23/18 08/22/18 08/22/18 Range/Units 06:21 Unknown 19:56 WBC 11.93 H (4.8-10.8) K/uL RBC 3.52 L (4.2-5.4) M/uL Hgb 9.1 L (12.0-16.0) g/dL Hct 28.4 L (37-47) % MCV 80.7 (80-100) fL MCH 25.9 (25-34) pg MCHC 32.0 (32-36) g/dL RDW Std Deviation 52.1 H (36.4-46.3) fL RDW Coeff of Jose 17.8 H (11.5-14.5) % Plt Count 328 (130-400) K/uL MPV 10.3 (7.4-10.4) fL Immature Gran % (Auto) 0.3 % Neut % (Auto) 76.5 % Lymph % (Auto) 11.1 % [place] % (Auto) 11.1 % Eos % (Auto) 0.8 % Baso % (Auto) 0.2 % Immature Gran # (Auto) 0.03 H (0.00-0.02) K/uL Neut # (Auto) 9.13 H (1.4-6.5) K/uL Lymph # (Auto) 1.32 (1.2-3.4) K/uL [place] # (Auto) 1.33 H (0.11-0.59) K/uL Eos # (Auto) 0.10 (0-0.5) K/uL Baso # (Auto) 0.02 (0-0.2) K/uL PT (9.0-12.0) Seconds INR (0.9-1.1) Sodium (136-145) mmol/L Potassium (3.5-5.1) mmol/L Chloride (98-107) mmol/L Carbon Dioxide (21-32) mmol/L Anion Gap (3-11) BUN (7-18) mg/dl Creatinine (0.6-1.2) mg/dl Est Cr Clr Drug Dosing ml/min Est GFR ( Amer) Est GFR (Non-Af Amer) BUN/Creatinine Ratio (10-20) Glucose (70-99) mg/dl POC Glucose 115 H (70-99) Calcium (8.5-10.1) mg/dl Magnesium (1.8-2.4) mg/dl Total Bilirubin (0.2-1) mg/dl Direct Bilirubin (0-0.2) mg/dl AST (15-37) U/L ALT (12-78) U/L Alkaline Phosphatase (45-117) U/L Troponin I (0-0.045) ng/ml Total Protein (6.4-8.2) gm/dl Albumin (3.4-5.0) gm/dl Globulin (2.5-4.0) gm/dl Albumin/Globulin Ratio (0.9-2) Peritoneal Color YELLOW Peritoneal Appearance CLOUDY Peritoneal WBC 5743 H (0-300) /ul Peritoneal RBC < 3000 /uL Mononuclear WBCs % 15.1 % Polynuclear WBCs % 84.9 % Peritoneal Tot Protein 1.9 g/dl Peritoneal Albumin 0.9 g/dl Peritoneal LDH 75 U/L Peritoneal Glucose 84 mg/dl Peritoneal Amylase 6 U/L Peritoneal Lipase 14 U/L Peritoneal Triglycerid 33 mg/dl 08/22/18 Range/Units 15:53 WBC (4.8-10.8) K/uL RBC (4.2-5.4) M/uL Hgb (12.0-16.0) g/dL Hct (37-47) % MCV (80-100) fL MCH (25-34) pg MCHC (32-36) g/dL RDW Std Deviation (36.4-46.3) fL RDW Coeff of Jose (11.5-14.5) % Plt Count (130-400) K/uL MPV (7.4-10.4) fL Immature Gran % (Auto) % Neut % (Auto) % Lymph % (Auto) % [place] % (Auto) % Eos % (Auto) % Baso % (Auto) % Immature Gran # (Auto) (0.00-0.02) K/uL Neut # (Auto) (1.4-6.5) K/uL Lymph # (Auto) (1.2-3.4) K/uL [place] # (Auto) (0.11-0.59) K/uL Eos # (Auto) (0-0.5) K/uL Baso # (Auto) (0-0.2) K/uL PT (9.0-12.0) Seconds INR (0.9-1.1) Sodium (136-145) mmol/L Potassium (3.5-5.1) mmol/L Chloride (98-107) mmol/L Carbon Dioxide (21-32) mmol/L Anion Gap (3-11) BUN (7-18) mg/dl Creatinine (0.6-1.2) mg/dl Est Cr Clr Drug Dosing ml/min Est GFR ( Amer) Est GFR (Non-Af Amer) BUN/Creatinine Ratio (10-20) Glucose (70-99) mg/dl POC Glucose 81 (70-99) Calcium (8.5-10.1) mg/dl Magnesium (1.8-2.4) mg/dl Total Bilirubin (0.2-1) mg/dl Direct Bilirubin (0-0.2) mg/dl AST (15-37) U/L ALT (12-78) U/L Alkaline Phosphatase (45-117) U/L Troponin I (0-0.045) ng/ml Total Protein (6.4-8.2) gm/dl Albumin (3.4-5.0) gm/dl Globulin (2.5-4.0) gm/dl Albumin/Globulin Ratio (0.9-2) Peritoneal Color Peritoneal Appearance Peritoneal WBC (0-300) /ul Peritoneal RBC /uL Mononuclear WBCs % % Polynuclear WBCs % % Peritoneal Tot Protein g/dl Peritoneal Albumin g/dl Peritoneal LDH U/L Peritoneal Glucose mg/dl Peritoneal Amylase U/L Peritoneal Lipase U/L Peritoneal Triglycerid mg/dl _ (1) Pancreatic cancer Pancreatic malignancy location:
--- NOTE | 2018-08-23 14:33 | Gastrointestinal Consultation ---
Date of Consultation August 23, 2018 I have seen and examined the patient and discussed the management with SUNNY Huff. Agree with further plan of care as per her assessment and plan. Assessment & Plan (1) Pancreatic cancer: Appreciate palliative care consult. Appreciate primary care management of fluid/nutrition, coordinating care to meet daughter's goals - with hope to have pt be well enough to fly home to [place] (2) SBP (spontaneous bacterial peritonitis): For ascites/SBP recommend Cipro 500mg daily and lasix 40/aldactone 50 daily. Low salt diet. GI will sign off please contact us if new GI or liver symptoms/concerns. History of Present Illness Reason for Consultation: ascites, metastatic pancreatic CA,?SBP Requesting Physician: Dr. Pearson Attending Physician: Chrissy Pearson MD History of Present Illness Ms Elisa Hemphill is a 73 yr old female with a hx of A. fib, DVT, Pacemaker, Who is brought to the ED on 08/21 for vomiting and weakness. GI is consulted today for ascites question SBP. Patient has a history of being diagnosed with pancreatic cancer in March 29 undergoing chemo radiation and Whipple procedure in February 2017 Complicated by poor wound healing and fistula formation. Her daughter tells me that they were told that she had liver metastases in September [address] Rowell, her oncologist. . Despite this she was doing well until about a week ago when she began to feel weak and noticed more ascites.She had 2 episodes of vomiting but this seems to have resolved since arrival still was doing well until. She underwent paracentesis yesterday with fluid analysis showing. 5743 white blood cells with 84% neutrophils. Allergies Allergy/AdvReac Type Severity Reaction Status Date / Time No Known Allergies Allergy Unverified 08/21/18 20:53 Home Medications Home Medications Medication Instructions Recorded Confirmed Type digoxin 0.125 mg PO DAILY 08/21/18 08/21/18 History hydrocodone-acetaminophen 1 tab PO UD PRN 08/21/18 08/21/18 History metoprolol tartrate 50 mg PO BID 08/21/18 08/21/18 History pantoprazole 40 mg PO DAILY 08/21/18 08/21/18 History insulin glargine [Lantus U-100 20 unit SUBCUT DAILY 08/22/18 08/22/18 History Insulin] Patient History Medical History DVT (deep venous thrombosis) Atrial fibrillation Social History Current Living Situation: Family Other Information That Helps Us Care for You: No Feels Safe at Home: Yes Safety Concerns: Feels Safe At This Time Smoking Status: Never smoker Hx Alcohol Use: No Hx Substance Use: No Beliefs That Will Affect Care: Cultural Communication Ability: Effective Review of Systems ROS obtained by talking with her daughter who translated Constitutional: + weakness Respiratory: no cough, no dyspnea and no wheezing Cardiovascular: + edema; no chest pain, no palpitations and no syncope Integumentary: + lesions; no rash sometimes oozing of small amts of pus for the whipple wound site Neurologic: + unsteadiness; no gait abnormality, no tremor(s), no syncope, no headache(s), no confusion and no memory loss Psychiatric: no irritability, no anxiety and no confusion daughter tells me that pt seems to want to return to [place] Endocrine: + fatigue; no polydipsia, no polyphagia and no polyuria Physical Exam 2 Vital Signs (Past 24 Hours): Last Vital Signs Temp 37.2 C 08/23/18 11:04 Pulse 101 H 08/23/18 11:04 Resp 20 08/23/18 11:04 BP 99/59 L 08/23/18 11:04 Pulse Ox 97 08/23/18 11:04 Constitutional: WD/WN, vitals as above + ill appearing and average body habitus; no acute distress Eyes: PERRL, conjunctivae normal, anicteric sclerae ENMT: external ear and nose normal, oropharynx normal Neck: trachea midline, no thyromegaly Respiratory: normal respiratory effort, lungs clear to auscultation Cardiovascular: RRR, no murmur, no edema Gastrointestinal (Abdomen): normal bowel sounds, soft, nontender, no hepatosplenomegaly Skin: no rashes, warm and dry chronic dark, granulomatous skin changes on the abdomen from Whipple/fistula Neurologic: PERRL, EOMI, accommodation nl, no face palsy, no dysarthria Psychiatric: A+Ox3, euthymic affect Lymphatic: no cervical or axillary lymphadenopathy Results & Data Diagnostic Findings US 08/21/18: Ultrasound-guided diagnostic and therapeutic paracentesis with aspiration of 2 L of ascites. CXR: 1. No acute cardiopulmonary disease. CT abd/pelvis w/o contrast: 1. Interval development of significant ascites. The presence of ascites presumably relates to development of portal hypertension. 2. Increased prominence at the site of postsurgical change at the level of the superior mesenteric vein raises concern for thrombus, which may be acute or chronic, or, less likely, recurrent disease. Based on the patient's body habitus and the depth of the abnormality in the posterior abdomen, this would likely be poorly demonstrated with ultrasound and preferably evaluated with intravenous contrast-enhanced CT. 3. Apparent interval hepatic parenchymal atrophy with geographic regions of severe hypoattenuation. This may represent progression of heterogeneous severe hepatic steatosis. The primary differential consideration is patchy areas of liver necrosis, considered less likely. 4. Redemonstration of postsurgical changes of Whipple procedure. These are not well demonstrated without intravenous contrast. No bowel obstruction. 5. 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 6. Volume overload with body wall edema and congestive change in the lung bases in addition to ascites. Medications Administered Ceftriaxone _ (1) Pancreatic cancer Pancreatic malignancy location:
[2018-08-23] MEDS ORDERED: SPIRONOLACTONE 25 MG TAB PO SCH (16:00)
[2018-08-23] MEDS: FUROSEMIDE 20 MG TAB PO SCH (17:41)
[2018-08-23] MEDS: DIGOXIN 0.125 MG TAB PO SCH (17:41)
[2018-08-23] MEDS: cefTRIAXone SODIUM 2,000 MG in DEXTROSE 5% 50 ML IV SCH (21:24)
[2018-08-24 06:32] LABS: Basophils # (auto) 0.02 K/uL (0-0.2); Basophils % (auto) 0.2 %; Eosinophils # (auto) 0.17 K/uL (0-0.5); Eosinophils % (auto) 1.6 %; Hematocrit (blood only) 29.1 % (37-47); Hemoglobin 9.4 g/dL (12.0-16.0); Immature Granulocytes # (auto) 0.04 K/uL (0.00-0.02); Immature Granulocytes % (auto) 0.4 %; Lymphocytes # (auto) 1.78 K/uL (1.2-3.4); Lymphocytes % (auto) 16.4 %; Mean Corpuscular Hgb Conc 32.3 g/dL (32-36); Mean Corpuscular Volume 81.3 fL (80-100); Mean Platelet Volume 10.3 fL (7.4-10.4); Monocytes # (auto) 1.18 K/uL (0.11-0.59); Monocytes % (auto) 10.9 %; Neutrophils # (auto) 7.68 K/uL (1.4-6.5); Neutrophils % (auto) 70.5 %; Platelet Count 389 K/uL (130-400); RDW Coefficient of Variation 17.5 % (11.5-14.5); RDW Standard Deviation 51.9 fL (36.4-46.3); Red Blood Count 3.58 M/uL (4.2-5.4); White Blood Count 10.87 K/uL (4.8-10.8)
[2018-08-24 07:10] LABS: Albumin Level 1.9 gm/dl (3.4-5.0); Calcium 7.7 mg/dl (8.5-10.1); Creatinine Clr Calc Pharmacy 74.5 ml/min; Est GFR (African American) 102.2; Est GFR (Non-African American) 88.2; Magnesium 1.8 mg/dl (1.8-2.4); Potassium 3.9 mmol/L (3.5-5.1)
[2018-08-24 07:13] LABS: Albumin Globulin Ratio 0.6 (0.9-2); Bilirubin,Total 0.5 mg/dl (0.2-1); Globulin 3.3 gm/dl (2.5-4.0); Total Protein 5.2 gm/dl (6.4-8.2)
[2018-08-24] MEDS: PANTOprazole 40 MG TAB PO SCH (08:19)
[2018-08-24] MEDS: FUROSEMIDE 20 MG TAB PO SCH (08:19)
[2018-08-24] MEDS: INSULIN ASPART 100 UNITS/ML 3 ML PEN SC SCH ×4 (08:22→21:12)
[2018-08-24] MEDS: METOPROLOL TARTRATE 50 MG TAB PO SCH (08:34)
[2018-08-24] MEDS: SPIRONOLACTONE 25 MG TAB PO SCH (12:13)
[2018-08-24] MEDS ORDERED: METOPROLOL TARTRATE 25 MG TAB PO STA (15:03)
--- NOTE | 2018-08-24 15:23 | Hospitalist Progress Note ---
Date of Service August 24, 2018 Assessment & Plan (1) Atrial fibrillation, rapid: Patient was started on a diltiazem drip in the ED with moderate improvement in heart rate on admission Patient was also given digoxin 0.25 mg IV by the ED. now off dilt gtt and on home meds Metoprolol held for lower BPs since starting diuretics for ascites---> lower dose of metoprolol to 25mg bid -Continue digoxin 0.125 mg p.o. daily. -not on AC due to high risk of bleeding (2) Pancreatic cancer: Metastatic pancreatic cancer to liver/history of Whipple-- Patient's abdominal discomfort is likely secondary to the development of ascites with SBP as below and abdominal distention. Had therapeutic and diagnostic paracentesis on 08/22 under IR as below removed 2L -no further chemo, goal of care is comfort Consult palliative care appreciated and now will be enrolling in Hospice- assisting -plan for repeat paracentesis tomorrow prior to discharge -continue home hydrocodone prn pain but could give Roxanol liquid on discharge (3) Ascites, malignant: Most likely, path pending (4) SBP (spontaneous bacterial peritonitis): WBC count 5743 on peritoneal fluid with 84% PMNs, afebrile but presented with abd pain and vomiting--> started Rocephin 2 grams daily-today day#3 -consult GI for further recommendations-appreciated: -can transition to Cipro 500mg po qday -added aldactone 12.5mg daily and lasix 20mg daily-tolerating with some mild lightheadedness -repeat paracentesis tomorrow for comfort and can reassess WBC count (5) Hypoglycemia due to type 2 diabetes mellitus: Blood sugar was low at 66 when patient came to the emergency department.Now improved with holding Lantus from home and D50 amp in admission continue to Hold Lantus insulin. Placed on Accu-Cheks before meals and at bedtime with NovoLog coverage per scale. -will likely not need Lantus on discharge (6) DVT (deep venous thrombosis): History of such Patient is no longer on anticoagulation. Proph-none given paracentesis Dispo- continued stay for IV abx for SBP, observation, repeat tap tomorrow then likely dc to home after that on Plan to go home with Hospice and then Possibly trying to fly her back to [place] within the month to see her other family members before she passes away Subjective Still with some abd pain but improved from previous. Some mild nausea but is able to eat. Is moving her bowels regularly. Daughter happy that her mom's home hospice will be [facility] by [facility] Pt agreeable to repeat paracentesis prior to discharge as bringing her back for repeat paracentesis as an outpt would be quite taxing Afebrile BPs low normal and has had some mild lightheadedness since starting on diuretics. Metoprolol was held this AM for low BP but now mildly tachycardic Denies chest pain or SOB Review of Systems All systems reviewed & are unremarkable except as noted in HPI & below Physical Exam Vital Signs (Past 24 Hours): Last Vital Signs Temp 37.2 C 08/24/18 14:35 Pulse 117 H 08/24/18 14:35 Resp 20 08/24/18 14:35 BP 117/75 08/24/18 14:35 Pulse Ox 94 08/24/18 14:35 Constitutional: WD/WN, vitals as above well developed; no acute distress (lying in bed but alert and awake) Eyes: PERRL, conjunctivae normal, anicteric sclerae ENMT: external ear and nose normal, oropharynx normal Neck: trachea midline, no thyromegaly Respiratory: normal respiratory effort, lungs clear to auscultation Cardiovascular: Rate/Rhythm: + tachycardic (mild); + abnormal rhythm (irreg irreg) Heart Sounds: no murmur Extremities: no edema Gastrointestinal (Abdomen): Inspection/Auscultation: normal bowel sounds; + abdomen abnormal to inspection and abdomen not distended Percussion/P alpation: + abdomen tender (diffusely but no guarding or rebound) Musculoskeletal: Extremities: extremities normal to inspection; no cyanosis and no clubbing Skin: no rashes, warm and dry Neurologic: moves all extremities and awake; no focal motor deficits Psychiatric: A+Ox3, euthymic affect Results & Data Laboratory Results 08/25/18 08/25/18 08/24/18 Range/Units 06:45 06:45 20:12 WBC Pending RBC Pending Hgb Pending Hct Pending MCV Pending MCH Pending MCHC Pending Plt Count Pending POC Glucose 176 H (70-99) Magnesium Pending 08/24/18 08/24/18 08/24/18 Range/Units 16:54 11:27 07:30 WBC RBC Hgb Hct MCV MCH MCHC Plt Count POC Glucose 153 H 163 H 113 H (70-99) Magnesium WBC 10, hgb 9.4, plts 389 BMP normal Albumin 1.9 Alk phos 147 No growth from peritoneal fluid cx Cytology pending
[2018-08-24] MEDS: DIGOXIN 0.125 MG TAB PO SCH (15:26)
[2018-08-24] MEDS: METOPROLOL TARTRATE 25 MG TAB PO SCH (21:12)
[2018-08-24] MEDS: cefTRIAXone SODIUM 2,000 MG in DEXTROSE 5% 50 ML IV SCH (21:12)
[2018-08-24] MEDS: HYDROCODONE/ACETAMINOPHEN 10/325 TAB PO PRN (21:15)
[2018-08-25 07:38] LABS: Hematocrit (blood only) 29.1 % (37-47); Hemoglobin 9.4 g/dL (12.0-16.0); Mean Corpuscular Hgb Conc 32.3 g/dL (32-36); Mean Corpuscular Volume 80.8 fL (80-100); Mean Platelet Volume 9.7 fL (7.4-10.4); Platelet Count 354 K/uL (130-400); RDW Coefficient of Variation 17.3 % (11.5-14.5); RDW Standard Deviation 51.6 fL (36.4-46.3); White Blood Count 7.19 K/uL (4.8-10.8)
[2018-08-25] MEDS: PANTOprazole 40 MG TAB PO SCH (08:15)
[2018-08-25] MEDS: INSULIN ASPART 100 UNITS/ML 3 ML PEN SC SCH ×4 (08:18→21:00)
[2018-08-25] MEDS: METOPROLOL TARTRATE 25 MG TAB PO SCH ×3 (08:20→21:53)
[2018-08-25] MEDS: FUROSEMIDE 20 MG TAB PO SCH (08:20)
[2018-08-25] MEDS: SPIRONOLACTONE 25 MG TAB PO SCH (08:20)
--- NOTE | 2018-08-25 13:57 | Ultrasound Report ---
US paracentesis abd w/image CLINICAL HISTORY: 73 years-old Female presenting with ascites, SBP. COMPARISON: 08/22/2018. PROCEDURE: The procedure and its risks, benefits, and alternatives were discussed with the patient, and written informed consent was obtained. A timeout was performed to confirm patient identity. Limited ultrasound of the abdomen was performed to determine a safe needle entry site, and the site w as marker for paracentesis. The left lower quadrant was prepped and draped in the usual aseptic fashion. 1% Lidocaine was used fo r local anesthesia. A paracentesis needle-sheath was inserted into the peritoneal space using ultrasound guidance. The ne edle was removed and the sheath was connected to tubing and a vacuum suction device. A total of 2 L o f clear yellow ascites was aspirated. The sheath was removed, and a dressing applied. The patient tolerated the procedure well. No immediate complications. IMPRESSION: Ultrasound-guided diagnostic and therapeutic paracentesis with aspiration of 2 L of ascites. Electronically signed by: Cedric Byers M.D. 08/25/2018 1:56 PM
[2018-08-25 14:35] LABS: Albumin Peritoneal Fluid 0.9 g/dl; LDH Peritoneal Fluid 52 U/L; Total Protein Peritoneal Fluid 1.8 g/dl
[2018-08-25 14:47] LABS: Appearance Peritoneal Fluid CLEAR; Color Peritoneal Fluid YELLOW; RBC Peritoneal Fluid (A) < 3000 /uL; WBC Peritoneal Fluid (A) 471 /ul (0-300)
--- NOTE | 2018-08-25 14:49 | Palliative Care Progress Note ---
Date of Service August 25, 2018 Assessment & Plan (1) Palliative care encounter: This is a 73 year old [place] National Female who presented to the [facility] ED with vomiting, constipation, abdominal pain. She has a PMH that includes A- fib, HLD, and pancreatic cancer which was diagnosed in 02/2017. In 03/2017, she underwent a Whipple's procedure and per daughter, had a complicated recovery. In September 2017, liver metastasis was found and chemotherapy was no longer an option. She has had a few months of being independent, but overall has shown decline. She underwent a paracentesis X 2 for 2L each time. -I met with patient and patient daughter, in the room. -Pt being treated currently with SBP with IV abx - Hospitalist to determine ELOS. -Plan is to d/c home with Hospice care (2) Ascites, malignant: -Ascites has started over past few weeks - initial paracentesis done 08/22 , repeat again on 08/25 with 2L removed. (3) Atrial fibrillation, rapid: -Pt had rapid A-fib in the ED, placed on Diltizaem drip, which has been weaned off -Medically managed with Metoprolol 50mg po BID , Digoxin 0.125 mcg po daily -Pt not on an anticoagulant, but may be C/I with bleeding risk r/t paracentesis (4) Pancreatic cancer: -Pancreatic CA diagnosed in 02/2017. -In 03/2017, she underwent a Whipple's procedure and per daughter, had a complicated recovery. -In September 2017, liver metastasis was found and chemotherapy was no longer an option. -She has had a few months of being independent, but overall has shown decline. -Per daughter, plan is home with hospice with hopeful repatriation to [place] if able to travel Subjective Pt awake , alert, NAD. Pt's daughter at bedside. Pt had paracentesis for 2L today. Review of Systems Pt denies fever, chills, CP, SOB or abd pain Physical Exam Vital Signs (Past 24 Hours): Last Vital Signs Temp 36.8 C 08/25/18 14:23 Pulse 121 H 08/25/18 14:23 Resp 16 08/25/18 14:23 BP 127/62 08/25/18 14:23 Pulse Ox 96 08/25/18 14:23 Physical Exam: PE: NAD HEENT: EOMI Resp: unlabored CV: tachy Abd: soft, NT, less distended Ext: no edema Time Spent Attending total time 25 min with > 50% of time spent at bedside assessing pt and di scussing POC with pt and daughter
[2018-08-25] MEDS: DIGOXIN 0.125 MG TAB PO SCH (16:20)
[2018-08-25] MEDS: SODIUM CHLORIDE 0.9% 1000ML 1,000 ML IV SCH (18:03)
--- NOTE | 2018-08-25 20:21 | Hospitalist Progress Note ---
Date of Service August 25, 2018 Assessment & Plan (1) SBP (spontaneous bacterial peritonitis): 2nd to GNR. WBC counts from the ascites has improved since antibiotic treatment started a few days ago. Remains on rocephin. Can transition to cipro after d/c for Rx of current episode of SBP as well as prevention of future episodes. Present on Admission?: Yes (2) Ascites: SAAG 1.6 - suggests presence of portal HTN. if this was malignant ascites her SAAG would be <1.1. Thus, does she have liver disease de re? Or does she have liver disease due to extensive metastatic disease? Favor the latter. Uncertain if BP will allow use of diuretics. (3) Pancreatic cancer: by report pt & her family were told in September 2017 that she had liver mets and thus stage 4 pancreatic ca. her ascites was sent for cytologies this admission and these were negative. SAAG was calculated at 1.6 suggesting the presence of portal HTN; this would argue against malignant ascites and more so for ascites due to liver dysfunction. imaging of the liver suggests a very abnormal appearing liver -- is that due to extensive liver mets? her INR is 1.5 - this would argue for liver dysfunction - possibly due to infiltrating metastatic disease. other possibility is that of de re liver disease but much less likely. plan is still for home with hospice. I am uncertain if her BP will allow use of diuretic therapy for the ascites. (4) Hypotension: symptomatic. NS at 100cc/hr through tomorrow AM. recheck orthostatic BPs at that time. (5) DVT (deep venous thrombosis): [facility] on imaging no Rx due to impending hospice status (6) Atrial fibrillation: rates adequate right now with digoxin and BB (7) DM w/o complication type II: control adequate at this time (8) Discharge planning issues: daughter updated at bedside today social work assistance appreciated plan is home w/ hospice Subjective patient with minimal abdominal pain. she is s/p paracentesis today - 2 liters removed. no nausea or vomiting. appetite fair at best. c/o dizziness with standing. orthostatic BPs -- 20 point drop with sitting to standing. daughter at bedside. they confirm home w/ hospice after admission. Constitutional: no fever Respiratory: + dyspnea on exertion Cardiovascular: no chest pain at rest Gastrointestinal: + abdominal pain; no nausea and no vomiting Physical Exam Vital Signs (Past 24 Hours): Last Vital Signs Temp 36.8 C 08/25/18 14:23 Pulse 86 08/25/18 16:20 Resp 16 08/25/18 14:23 BP 127/62 08/25/18 14:23 Pulse Ox 96 08/25/18 14:23 Constitutional: no acute distress ENMT: external ear and nose normal, oropharynx normal Respiratory: normal respiratory effort, lungs clear to auscultation Auscultation: + diminished lung sounds (bases) Cardiovascular: Rate/Rhythm: regular rate Heart Sounds: normal S1 and normal S2; no murmur Vessels: posterior tibial pulses present and dorsalis pedis pulses present; no JVD Gastrointestinal (Abdomen): large scar mid-abdomen; ?splenomegaly; mild ascites present; minimal tenderness centrally Skin: no jaundice Psychiatric: Orientation: alert Mood: no depressed mood Results & Data Laboratory Results Laboratory Results - last 24 hr 08/25/18 08/25/18 08/25/18 06:45 06:45 07:49 WBC 7.19 RBC 3.60 L Hgb 9.4 L Hct 29.1 L MCV 80.8 MCH 26.1 MCHC 32.3 RDW Std Deviation 51.6 H RDW Coeff of Jose 17.3 H Plt Count 354 MPV 9.7 POC Glucose 114 H Magnesium 2.0 Peritoneal Color Peritoneal Appearance Peritoneal WBC Peritoneal RBC Mononuclear WBCs % Polynuclear WBCs % Peritoneal Tot Protein Peritoneal Albumin Peritoneal LDH 08/25/18 08/25/18 08/25/18 11:18 13:52 16:39 WBC RBC Hgb Hct MCV MCH MCHC RDW Std Deviation RDW Coeff of Jose Plt Count MPV POC Glucose 106 H 134 H Magnesium Peritoneal Color YELLOW Peritoneal Appearance CLEAR Peritoneal WBC 471 H Peritoneal RBC < 3000 Mononuclear WBCs % 82.0 Polynuclear WBCs % 18.0 Peritoneal Tot Protein 1.8 Peritoneal Albumin 0.9 Peritoneal LDH 52
[2018-08-25] MEDS: HYDROCODONE/ACETAMINOPHEN 10/325 TAB PO PRN (21:51)
[2018-08-25] MEDS: cefTRIAXone SODIUM 2,000 MG in DEXTROSE 5% 50 ML IV SCH (21:51)
[2018-08-26] MEDS: SODIUM CHLORIDE 0.9% 1000ML 1,000 ML IV SCH (04:14)
[2018-08-26] MEDS: METOPROLOL TARTRATE 25 MG TAB PO SCH (08:43)
[2018-08-26] MEDS: PANTOprazole 40 MG TAB PO SCH (08:44)
[2018-08-26] MEDS: INSULIN ASPART 100 UNITS/ML 3 ML PEN SC SCH ×2 (08:47→12:37)
[2018-08-26] MEDS: HEPARIN 100 UNIT/ML 5ML FLUSH FLUSH PRN ×2 (10:20→14:32)
--- NOTE | 2018-08-31 21:33 | Discharge Summary ---
Date of Service date of admission - 08/21/18 date of discharge - 08/26/18 Admission HPI Per Admitting Provider The patient is a 73-year-old [id number] female, accompanied by her daughter who speaks for her in the emergency department, with report of vomiting, and abdominal discomfort that began earlier in the day. Patient has a history of stage IV pancreatic cancer that is metastatic to the liver, and has previously undergone a Whipple procedure. She is no longer receiving chemotherapy. Her daughter reports that patient's last bowel movement was yesterday. CT scan of the abdomen and pelvis performed in the ED showed the development of new significant ascites. Daughter reports that the patient is a DNR, and wishes to be able to return to [place]. Principal Diagnosis SBP 2nd to enterobacter Discharge Exam Constitutional no acute distress ENMT external ear and nose normal, oropharynx normal Respiratory normal respiratory effort, lungs clear to auscultation Auscultation: + diminished lung sounds (bases) Cardiovascular Rate/Rhythm: regular rate Heart Sounds: normal S1 and normal S2; no murmur Vessels: posterior tibial pulses present and dorsalis pedis pulses present; no JVD Gastrointestinal (Abdomen) Inspection/Auscultation: + abdomen distended (mild - with ascites) Percussion/Palpation: abdomen soft; abdomen nontender, no guarding and no hepatosplenomegaly Skin no jaundice Psychiatric Orientation: alert Mood: no depressed mood Discharge Data Allergies Allergy/AdvReac Type Severity Reaction Status Date / Time No Known Allergies Allergy Unverified 08/21/18 20:53 Consultations 1. gastroenterology 2. palliative care Ordered Studies 1. CT abd/pelvis - IMPRESSION: 1. Interval development of significant ascites. The presence of ascites presumably relates to development of portal hypertension. 2. Increased prominence at the site of postsurgical change at the level of the superior mesenteric vein raises concern for thrombus, which may be acute or chronic, or, less likely, recurrent disease. Based on the patient's body habitus and the depth of the abnormality in the posterior abdomen, this would likely be poorly demonstrated with ultrasound and preferably evaluated with intravenous contrast-enhanced CT. 3. Apparent interval hepatic parenchymal atrophy with geographic regions of severe hypoattenuation. This may represent progression of heterogeneous severe hepatic steatosis. The primary differential consideration is patchy areas of liver necrosis, considered less likely. 4. Redemonstration of postsurgical changes of Whipple procedure. These are not well demonstrated without intravenous contrast. No bowel obstruction. 5. 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 6. Volume overload with body wall edema and congestive change in the lung bases in addition to ascites. 2. 08/22/18 - ultrasound-guided paracentesis 3. 08/25/18 - ultrasound-guided paracentesis Hospital Course (1) SBP (spontaneous bacterial peritonitis): Early on in her stay the patient underwent an u/s-guided paracentesis by our radiologist. Cytologies were negative from the ascites. Culture ultimately grew enterobacter sensitive to cipro. She was initially treated with IV rocephin and then transitioned to oral cipro at discharge. She will take the cipro twice daily for about 10 days, then drop to once daily dosing for SBP prophylaxis. On a second paracentesis later on in her stay the total WBC count had decreased significantly and the culture from this tap was ultimately negative. (2) Ascites: SAAG ratio was 1.6. This suggests presence of portal HTN. if this was malignant ascites her SAAG should be <1.1. Thus, the concern was that she had developed liver dysfunction/liver disease perhaps from infiltrative (metastatic) disease from her pancreatic cancer. She was seen by [facility] and attempts were made to place her on lasix and aldactone. However, her BPs were restrictive, and she developed dizziness on diuretics. We had to hold these for a period, and at discharge the patient is going to reattempt taking the lasix. (3) Pancreatic cancer: Patient & her family were told in September 2017 that she had liver mets and thus stage 4 pancreatic cancer. Her ascites was sent for cytologies this admission and these were negative. SAAG was calculated at 1.6 suggesting the presence of portal HTN; this would argue against malignant ascites and more so for ascites due to liver dysfunction. Imaging of the liver suggests a very abnormal appearing liver -- likely due to extensive liver mets. Her INR was 1.5 - this would argue for liver dysfunction - possibly due to infiltrating metastatic disease. Other possibility is that of de re liver disease but much less likely. She was seen by palliative care and the patient with her daughter opted to return home with hospice. She certainly may need periodic therapeutic paracentesis in the future as a palliative measure. (4) Hypotension: The patient required hydration for the hypotension. Her diuretics also had to be held. (5) DVT (deep venous thrombosis): Superior mesenteric vein on imaging with thrombus. Anticoagulation deferred due to hospice status. (6) Atrial fibrillation: Controlled with digoxin and beta brijesh while here. No anticoagulation. (7) DM w/o complication type II: control adequate while here. She will continue once daily lantus at home. (8) Discharge planning issues: The patient will return home with her daughter with hospice. Total Time Total Time Spent Total Time Spent (In Minutes): 25 Total Time Includes: Examination of the Patient, Discharge Planning, Medication Reconciliation and Communication With Other Providers Discharge Plan Discharge Items Patient Disposition: Hospice - Home Reason For Visit: ATRIAL FIB, Ascites (fluid build-up in abdomen) Discharge Diagnosis: Ascites with infection of the fluid (also known as spontaneous bacterial peritonitis); stage 4 pancreatic cancer; going home with hospice. Discharge Goals: Diagnostic testing and Therapeutic intervention Activity: Resume your previous activity Activity Comment: as tolerated and/or desired Non-emergency contact: Primary Care Provider Call non-emergency contact if: you have any medication questions, your pain is not controlled, your pain is worsening, your pain is unusual for you, your pain is concerning for you and your temperature is above 100.5 Follow-up/Referrals: [facility] [Provider Group] (Please, follow up at [facility]. *The nurse from this office is to call your daughter with the appointment details. If you have any questions, call the office at [phone].) Diet: Carb Consistent or DM2 Addtl Provider Instructions: From Bipin Valdez - Hospitalist - You were treated for infection of the ascites fluid in your abdomen. You had fluid removed on 2 occasions. The infection appears to be resolving. You were seen by a liver and GI specialist -- they have recommended use of water pills (diuretics) in the hopes of keeping fluid from building up in your abdomen. At this time we recommend - 1. ciprofloxaxin 500mg twice daily for 10 days. Start this TONIGHT. This is for your active infection in the fluid of your abdomen. 2. after 10 days please start ciprofloxacin 500mg once daily and take indefinitely with the hopes of preventing a future infection. 3. take furosemide 20mg every morning for fluid. 4. may take hydrocodone-acetaminophen 1/2 tab or 1 full tablet every 6 hours as needed for pain. 5. If you have any questions, concerns, problems, or any new issues (uncontrolled pain, the ascites fluid in the abdomen is getting worse, etc) --- please contact the HOSPICE AGENCY FIRST. THEY WILL BE ABLE TO HANDLE AND ADDRESS MOST, IF NOT ALL, PROBLEMS THAT ARISE AT YOUR HOME. 6. Lantus (long-acting insulin) -- start 10 units once a day. If your morning blood sugar is low (less than 100) then cut the dose back by 2 units. If the morning blood sugars are higher than 125 then increase the lantus dose by 2 units. Any questions about the lantus can be directed to your family doctor or Hospice. 7. Note that the metoprolol dose has been DECREASED to 25mg twice a day. 8. If the fluid in the abdomen is building up over the next 1-2 weeks and it is causing discomfort it is possible to have it drained as an outpatient at [facility]. Hospice could potentially assist with setting this up for you. Prescriptions: New furosemide 20 mg Tablet 20 mg PO QAM Qty: 30 RF: 2 ciprofloxacin HCl [Cipro] 500 mg tablet 500 mg PO BID 10 Days Qty: 20 RF: 0 ciprofloxacin HCl [Cipro] 500 mg tablet 500 mg PO DAILY 30 Days Qty: 30 RF: 2 Continued pantoprazole 40 mg Tablet,Delayed Release (Dr/Ec) 40 mg PO DAILY RF: 0 digoxin 125 mcg Tablet 0.125 mg PO DAILY RF: 0 Lantus U-100 Insulin 100 unit/mL Solution 10 unit SUBCUT DAILY Qty: 1 RF: 0 Changed hydrocodone-acetaminophen 10-325 mg Tablet 0.5 - 1 tab PO Q6H PRN (Reason: Pain) Qty: 30 RF: 0 metoprolol tartrate 50 mg Tablet 25 mg PO BID Qty: 60 RF: 2 Discontinued Lantus U-100 Insulin 100 unit/mL Solution 20 unit SUBCUT DAILY RF: 0 Stand-Alone Forms: [facility] Discharge Orders: Discharge Order (Routine); Ordered 08/26/18 Ordered By: Bipin Valdez Admission Data Admit Date/Time: 08/21/18 23:41 Attending Provider: Bipin Valdez Admit Provider: Julián Wilkerson Primary Care Provider: Oliver Maxwell Other Providers: Melissa Vieyra ; Susan Pena Service: Medical Other Interventions: Discharge Summary Assessment (RN) Last Done: 08/26/18 14:43 DC Date/Time DO NOT enter until pt leaves facility: 08/26/18 15:37
== END 2018-08-26 15:37 | disposition hospice, home (50) | DRG 308 ==
LOC: ED 20:35 → SUATTDRO 23:41 → 2E 23:41 → 4E 08-23 14:21
DX: I48.91 Unspecified atrial fibrillation; Z95.0 Presence of cardiac pacemaker; K65.2 Spontaneous bacterial peritonitis; B96.89 Other specified bacterial agents as the cause of diseases classified elsewhere; Z90.49 Acquired absence of other specified parts of digestive tract; Z79.899 Other long term (current) drug therapy; E11.649 Type 2 diabetes mellitus with hypoglycemia without coma; C25.9 Malignant neoplasm of pancreas, unspecified; Z92.3 Personal history of irradiation; R18.0 Malignant ascites; Z66 Do not resuscitate; I95.1 Orthostatic hypotension; E86.0 Dehydration; Z51.5 Encounter for palliative care; Z92.21 Personal history of antineoplastic chemotherapy; Z23 Encounter for immunization; Z90.411 Acquired partial absence of pancreas; Z86.718 Personal history of other venous thrombosis and embolism; C78.7 Secondary malignant neoplasm of liver and intrahepatic bile duct; K76.6 Portal hypertension